=== PATIENT | female | born 1945 | race Caucasian/White ===

== ENCOUNTER 2016-06-30 16:48 | Emergency (ER) | payer OTHER ==
[~2016-06-30] VITALS: Ht 167.6 cm; Wt 75.0 kg
[~2016-06-30 16:48] MED LIST: ACET-703 PO; ASPI1TAB69 PO; ASTA1CAP2 PO; BENA25TA3 PO; FISHCAP4 PO; FLUT50SP EACH NARE; MAGN311C3 CHEW; MECL-62 PO; MULTTAB67 PO; TURM500C PO
[2016-06-30 16:50] VITALS: BP 168/78; PULSE 86; RESP 16; TEMP 97.9; O2SAT 97
[2016-06-30 17:16] VITALS: BP 181/80; PULSE 72; RESP 18; O2SAT 96
--- NOTE | 2016-06-30 17:53 | PD ---
HPI Chief Complaint: Substance Abuse Counselor Problem/Complaint Time Seen by Provider: 17:09 Travel History International Travel<30 days: No Contact w/Intl Traveler<30days: No Traveled to known affect area: No History of Present Illness HPI 70-year-old postmenopausal female here with complaint of bleeding, possibly vaginal. Patient states that she has some scant bleeding when she wipes on the toilet paper and on her kristine pad. Patient has had some burning with urination approximately one week ago but that has since resolved and she has not noticed any hematuria. She has not noticed any blood intermixed with the stool. Concern the bleeding may be coming from the vagina. Patient is again postmenopausal, but has not had a hysterectomy or oophorectomy. Denies any history of abnormal Pap smears in the past. Previous PERSONALIZED LIVING MANAGER NURSE was Dr. Hayward. [facility] Past Medical History Asthma: No Blood Disorders: No Anxiety: No Depression: Yes Heart Rhythm Problems: No Cancer: Yes (LEFT BREAST CANCER, CANCER OF URETER) Cardiovascular Problems: No High Cholesterol: Yes Chemotherapy: Yes (2000) Chest Pain: No Congestive Heart Failure: No COPD: No Cerebrovascular Accident: Yes (TIA 2013) Diabetes: Yes Patient Takes Glucophage: No Diminished Hearing: No Endocrine: Yes Gastrointestinal Disorders: Yes (GASTRIC ULCER, IRRITABLE BOWEL) Genitourinary: Yes (HEMATURIA) Hepatitis: No Hypertension: Yes Immune Disorder: No Musculoskeletal: No Neurologic: Yes (POSSIBLE TIA) Psychiatric: Yes (HX OF DEPRESSION) Reproductive: No Respiratory: No Immunizations Current: Yes Radiation Therapy: No Sleep Apnea: Yes Thyroid Disease: No Ulcer: Yes Menopausal: Yes : 1 Para: 1 Tubal Ligation: Yes Past Surgical History Abdominal Surgery: No AICD: No Body Medical Devices: NONE Cardiac Surgery: No Ear Surgery: No Endocrine Surgery: No Eye Surgery: No Genitourinary Surgery: Yes (CYSTOSCOPY, ) Gynecologic Surgery: Yes (TL) Joint Replacement: No Pacemaker: No Thoracic Surgery: Yes (RIGHT MASTECTOMY) Other Surgery: Yes (Right Mastectomy, right kidney removed july 2015 Dr. Lopez ) Social History Alcohol Use: No Tobacco Use: No (never) Substance Use: No Allergies-Medications (Allergen,Severity, Reaction): Coded Allergies: Penicillin (Unverified Allergy, Unknown, Swelling, 02/14/16) Reported Meds & Prescriptions Reported Meds & Active Scripts Active Reported Turmeric (Turmeric (Curcuma Longa)) 500 Mg Cap 500 Mg PO DAILY Tylenol Extra Strength (Acetaminophen) 500 Mg Tab 500 Mg PO DIRECTED PRN Fish Oil + D3 (Fish Oil-Cholecalciferol) 1,200-1,000 Mg-Unit Cap 1,400 Mg PO DAILY Aspirin 81 Mg Tabdr 81 Mg PO DAILY Singh Milk of Magnesia (Magnesium Hydroxide) 311 Mg Chew 2 Tab CHEW DAILY PRN Multiple Vitamin 1 Tab 1 Tab PO DAILY Benadryl Allergy (Diphenhydramine HCl) 25 Mg Tab 25 Mg PO DIRECTED PRN Meclizine (Meclizine HCl) 25 Mg Tab 25 Mg PO DIRECTED PRN Fluticasone Nasal [place] 50 Mcg/Act Naspr 50 Mcg EACH NARE DAILY 50 mcg/spray Review of Systems Except as stated in HPI: all other systems reviewed are Neg Physical Exam Narrative GENERAL: Pleasant elderly female in no acute distress SKIN: Focused skin assessment warm/dry. HEAD: Normocephalic. EYES: No scleral icterus. No injection or drainage. ENT: Mucous membranes pink and moist. NECK: Supple CARDIOVASCULAR: Regular rate and rhythm. RESPIRATORY: No accessory muscle use. GASTROINTESTINAL: Abdomen soft, non-tender, nondistended. GENITOURINARY: Normal external female genitalia. Speculum examination reveals no evidence of blood within the vaginal vault, cervical erythema, mass, etc. However when the speculum was removed there was a scant amount of blood on the tip of the inferior speculum blade. RECTAL: Digital rectal examination unremarkable, Hemoccult negative MUSCULOSKELETAL: Normal gait NEUROLOGICAL: Awake and alert. Normal speech. PSYCHIATRIC: Appropriate mood and affect; insight and judgment normal. Data Data Last Documented VS Vital Signs Date Time Temp Pulse Resp B/P Pulse Ox O2 Delivery O2 Flow Rate FiO2 06/30/16 17:16 72 18 181/80 96 Room Air 06/30/16 16:50 97.9 Orders Urinalysis - C+S If Indicated (06/30/16 17:30) Labs Laboratory Tests Test 06/30/16 17:35 Urine Color LIGHT-YELLOW Urine Turbidity CLEAR Urine pH 7.5 Urine Specific [place] 1.006 Urine Protein NEG mg/dL Urine Glucose (UA) NEG mg/dL Urine Ketones NEG mg/dL Urine Occult Blood MOD Urine Nitrite NEG Urine Bilirubin NEG Urine Urobilinogen LESS THAN 2.0 MG/DL Urine Leukocyte Esterase TRACE Urine RBC 5 /hpf Urine WBC 7 /hpf Urine Squamous Epithelial <1 /hpf Cells Urine Hyaline Casts 1 /lpf Microscopic Urinalysis Comment CULT NOT INDICATED MDM Medical Decision Making Medical Screen Exam Complete: Yes Emergency Medical Condition: Yes Medical Record Reviewed: Yes Differential Diagnosis 70-year-old female a scant amount of blood when she wipes on the toilet paper today. Based on her examination this is most likely vaginal bleeding that she does not have any evidence of hematuria on urine specimen and Hemoccult was negative. Given her postmenopausal vaginal bleeding concerning for endometrial , or other uterine cancer versus atrophic vaginitis and patient will be for referred to PERSONALIZED LIVING MANAGER NURSE as an outpatient or endometrial biopsy and likely pelvic ultrasound. Narrative Course Urinalysis obtained. Grossly, urine is clear without evidence of blood. Urinalysis showed trace leukocyte esterase with 7 white cells and 5 red cells. I would not treat this for UTI. Patient will be discharged home with PERSONALIZED LIVING MANAGER NURSE follow-up. [facility] Point of Care Internal Pos. & Neg. Controls: Passed Fecal Specimen Occult Blood: Negative Diagnosis Primary Impression: Postmenopausal vaginal bleeding Referrals: Alise Hayward MD call for appointment Additional Instructions: Follow-up with PERSONALIZED LIVING MANAGER NURSE as instructed. Med/Other Pt SpecificInfo: No Change to Meds Disposition: 01 DISCHARGE HOME Condition: Stable Mary Mcleod MD Jun 30, 2016 17:53
[2016-06-30 17:57] LABS: BLOOD, URINE MOD (NEG); COMMENT (UR) CULT NOT INDICATED; CULTURE IF INDICATED CULT NOT INDICATED; GLUCOSE,URINE NEG (NEG); HYALINE CAST, URINE 1 /lpf (RARE); KETONE, URINE NEG (NEG); NITRITE,URINE NEG (NEG); PH, URINE 7.5 (5.0-8.5); SQUAMOUS EPITHELIAL CELL URINE <1 /hpf (0-5); URINE COLOR LIGHT-YELLOW (YELLW/STRAW)
== END 2016-06-30 18:49 | disposition home or self-care (01) ==
LOC: NEPE 16:48
DX: N95.0 Postmenopausal bleeding (principal); E78.00 Pure hypercholesterolemia, unspecified; E11.9 Type 2 diabetes mellitus without complications; I10 Essential (primary) hypertension; Z86.73 Personal history of transient ischemic attack (TIA), and cerebral infarction without residual deficits; Z79.4 Long term (current) use of insulin
CPT/HCPCS: 81001; 99284

== ENCOUNTER 2016-10-04 20:56 | Emergency (ER) | payer OTHER ==
[~2016-10-04] VITALS: Ht 170.2 cm; Wt 79.5 kg
[~2016-10-04 20:56] MED LIST changes: -ASTA1CAP2 PO
[2016-10-04 20:58] VITALS: BP 125/74; PULSE 84; RESP 16; TEMP 99.2; O2SAT 98
--- NOTE | 2016-10-04 21:36 | PD ---
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 She states that symptoms have been intermittent. Complains of pain in the lower abdomen, worsened by sitting. She states that she feels as if "there is a blockage." Endorses feeling of urgency without ability to void. She is able to provide 30-40 mL urine sample. Denies fevers, chills, N/V, changes in bowel habits, back pain. She states that she was treated for a UTI with Levaquin just after September 17. Followed by Dr. Lopez , urology and Dr. Moncada, PCP. REPLACED BY [facility] Past Medical History Asthma: No Blood Disorders: No Anxiety: No Depression: Yes Heart Rhythm Problems: No Cancer: Yes (LEFT BREAST CANCER, CANCER OF URETER) Cardiovascular Problems: No High Cholesterol: Yes Chemotherapy: Yes (2000) Chest Pain: No Congestive Heart Failure: No COPD: No Cerebrovascular Accident: Yes (TIA 2013) Diabetes: Yes (PRE) Diminished Hearing: No Endocrine: Yes Gastrointestinal Disorders: Yes (GASTRIC ULCER, IRRITABLE BOWEL) Genitourinary: Yes (HEMATURIA) Hepatitis: No Hypertension: Yes Immune Disorder: No Musculoskeletal: No Neurologic: Yes (POSSIBLE TIA) Psychiatric: Yes (HX OF DEPRESSION) Reproductive: No Respiratory: No Immunizations Current: Yes Radiation Therapy: No Sleep Apnea: Yes Thyroid Disease: No Ulcer: Yes Menopausal: Yes : 1 Para: 1 Tubal Ligation: Yes Past Surgical History Abdominal Surgery: No AICD: No Body Medical Devices: NONE Cardiac Surgery: No Ear Surgery: No Endocrine Surgery: No Eye Surgery: No Genitourinary Surgery: Yes (CYSTOSCOPY, ) Gynecologic Surgery: Yes (TL) Joint Replacement: No Pacemaker: No Thoracic Surgery: Yes (RIGHT MASTECTOMY) Other Surgery: Yes (Right Mastectomy, right kidney removed july 2015 Dr. Lopez ) Social History Alcohol Use: No Tobacco Use: No (never) Substance Use: No Allergies-Medications (Allergen,Severity, Reaction): Coded Allergies: Penicillin (Unverified Allergy, Unknown, Swelling, 10/04/16) Reported Meds & Prescriptions Reported Meds & Active Scripts Active Reported Levothyroxine (Levothyroxine Sodium) 25 Mcg Tab 25 Mcg PO DAILY Aspirin 81 (Aspirin) 81 Mg Tabdr 81 Mg PO DAILY Turmeric (Turmeric (Curcuma Longa)) 500 Mg Cap 500 Mg PO DAILY Fish Oil + D3 (Fish Oil-Cholecalciferol) 1,200-1,000 Mg-Unit Cap 1,400 Mg PO DAILY Singh Milk of Magnesia (Magnesium Hydroxide) 311 Mg Chew 2 Tab CHEW DAILY PRN Multiple Vitamin 1 Tab 1 Tab PO DAILY Meclizine (Meclizine HCl) 25 Mg Tab 25 Mg PO DIRECTED PRN Fluticasone Nasal [place] 50 Mcg/Act Naspr 50 Mcg EACH NARE DAILY 50 mcg/spray Review of Systems Except as stated in HPI: all other systems reviewed are Neg Physical Exam Narrative GENERAL: Well-nourished, well-developed nontoxic appearing white female in NAD. SKIN: Focused skin assessment warm/dry. Well-healed laparoscopy port scars on the abdomen without signs of infection. HEAD: Normocephalic. EYES: No scleral icterus. No injection or drainage. NECK: Supple, trachea midline. No JVD or lymphadenopathy. CARDIOVASCULAR: Regular rate and rhythm without murmurs, gallops, or rubs. RESPIRATORY: Breath sounds clear and equal bilaterally. No accessory muscle use. GASTROINTESTINAL: Abdomen soft, non-tender, nondistended. No suprapubic tenderness. Active bowel sounds. MUSCULOSKELETAL: No cyanosis, or edema. BACK: Nontender without obvious deformity. No CVA tenderness. Data Data Last Documented VS Vital Signs Date Time Temp Pulse Resp B/P Pulse Ox O2 Delivery O2 Flow Rate FiO2 10/04/16 20:58 99.2 84 16 125/74 98 Orders Urinalysis - C+S If Indicated (10/04/16 21:41) Complete Blood Count With Diff (10/04/16 22:05) Comprehensive Metabolic Panel (10/04/16 22:05) Iv Access Insert/Monitor (10/04/16 22:05) Bladder Scan PRN (10/04/16 22:05) Urinary Catheter Insert/Apply (10/04/16 23:12) Labs Laboratory Tests Test 10/04/16 10/04/16 21:30 22:25 Urine Color LIGHT-YELLOW Urine Turbidity CLEAR Urine pH 7.0 Urine Specific [place] 1.007 Urine Protein NEG mg/dL Urine Glucose (UA) NEG mg/dL Urine Ketones NEG mg/dL Urine Occult Blood NEG Urine Nitrite NEG Urine Bilirubin NEG Urine Urobilinogen LESS THAN 2.0 MG/DL Urine Leukocyte Esterase SMALL Urine RBC 1 /hpf Urine WBC 4 /hpf Urine Squamous Epithelial <1 /hpf Cells Microscopic Urinalysis Comment CULT NOT INDICATED White Blood Count 8.0 TH/MM3 Red Blood Count 4.63 MIL/MM3 Hemoglobin 13.6 GM/DL Hematocrit 40.0 % Mean Corpuscular Volume 86.4 FL Mean Corpuscular Hemoglobin 29.4 PG Mean Corpuscular Hemoglobin 34.1 % Concent Red Cell Distribution Width 13.5 % Platelet Count 214 TH/MM3 Mean Platelet Volume 7.0 FL Neutrophils (%) (Auto) 68.9 % Lymphocytes (%) (Auto) 21.0 % Monocytes (%) (Auto) 7.4 % Eosinophils (%) (Auto) 2.3 % Basophils (%) (Auto) 0.4 % Neutrophils # (Auto) 5.5 TH/MM3 Lymphocytes # (Auto) 1.7 TH/MM3 Monocytes # (Auto) 0.6 TH/MM3 Eosinophils # (Auto) 0.2 TH/MM3 Basophils # (Auto) 0.0 TH/MM3 CBC Comment DIFF FINAL Differential Comment Sodium Level 138 MEQ/L Potassium Level 3.7 MEQ/L Chloride Level 102 MEQ/L Carbon Dioxide Level 27.0 MEQ/L Anion Gap 9 MEQ/L Blood Urea Nitrogen 26 MG/DL Creatinine 1.37 MG/DL Estimat Glomerular Filtration 38 ML/MIN Rate Random Glucose 107 MG/DL Calcium Level 9.0 MG/DL Total Bilirubin 0.4 MG/DL Aspartate Amino Transf 16 U/L (AST/SGOT) Alanine Aminotransferase 19 U/L (ALT/SGPT) Alkaline Phosphatase 77 U/L Total Protein 7.2 GM/DL Albumin 3.4 GM/DL [facility] Medical Decision Making Medical Screen Exam Complete: Yes Emergency Medical Condition: Yes Differential Diagnosis UTI versus obstructive uropathy versus bladder spasm versus other Narrative Course 70 YO F with PMH of right breast cancer and 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 Complains of pain in the groin, worsened by sitting. She states that she feels as if "there is a blockage." Endorses urgency without ability to void. Denies fevers, chills, N/V , changes in bowel habits, back pain. Treated for a UTI with Levaquin ~ September 17. Followed by Dr. Lopez, urology and Dr. Moncada, PCP. Vitals reviewed. Patient is non toxic appearing on physical exam. No tenderness to palpation of the abdomen, suprapubic region, groin. The patient was able to provide a small urine sample. We'll check basic labs and do a bladder scan. Review of MRI at [place] 09/12: 14mm right adrenal gland mass suspicious for metastatic disease. New since January 2016. Patient is to undergo biopsy at a later date. Disposition per Dr. Herrera. Margy Damon Oct 04, 2016 21:36
[2016-10-04] MEDS ORDERED: ASPI-110 PO (21:53)
[2016-10-04] MEDS ORDERED: TURM500C3 PO (21:53)
[2016-10-04] MEDS ORDERED: LEVO25TA4 PO (21:53)
[2016-10-04 22:38] LABS: AUTOMATED NEUTROPHIL # 5.5 TH/MM3 (1.8-7.7); BASOPHIL % 0.4 % (0.0-2.0); EOSINOPHIL # 0.2 TH/MM3 (0-0.4); EOSINOPHIL % 2.3 % (0.0-4.0); HEMO FLAGS DIFF FINAL; LYMPHOCYTE # 1.7 TH/MM3 (1.0-4.8); MEAN CELL VOLUME 86.4 FL (80.0-100.0); MEAN CORPUSCULAR HEMOGLOBIN 29.4 PG (27.0-34.0); MEAN CORPUSCULAR HGB CONC 34.1 % (32.0-36.0); MONO % 7.4 % (0.0-8.0); NEUT % 68.9 % (16.0-70.0); PLATELET COUNT 214 TH/MM3 (150-450); RED BLOOD COUNT 4.63 MIL/MM3 (4.00-5.30); RED CELL DISTRIBUTION WIDTH 13.5 % (11.6-17.2)
[2016-10-04 23:04] LABS: ANION GAP 9 MEQ/L (5-15); AST (GOT) 16 U/L (15-37); BLOOD UREA NITROGEN 26 MG/DL (7-18); CHLORIDE 102 MEQ/L (98-107); GLOMERULAR FILTRATION RATE 38 ML/MIN (>89); POTASSIUM 3.7 MEQ/L (3.5-5.1); SODIUM (NA) 138 MEQ/L (136-145)
[2016-10-04 23:04] LABS: BLOOD, URINE NEG (NEG); COMMENT (UR) CULT NOT INDICATED; CULTURE IF INDICATED CULT NOT INDICATED; GLUCOSE,URINE NEG (NEG); KETONE, URINE NEG (NEG); NITRITE,URINE NEG (NEG); SQUAMOUS EPITHELIAL CELL URINE <1 /hpf (0-5); URINE COLOR LIGHT-YELLOW (YELLW/STRAW)
[2016-10-04 23:05] LABS: ALT (GPT) 19 U/L (10-53)
[2016-10-04 23:08] LABS: ALKALINE PHOSPHATASE 77 U/L (45-117); TOTAL BILIRUBIN ADULT 0.4 MG/DL (0.2-1.0)
--- NOTE | 2016-10-04 23:54 | PD ---
Data Data Last Documented VS Vital Signs Date Time Temp Pulse Resp B/P Pulse Ox O2 Delivery O2 Flow Rate FiO2 10/04/16 20:58 99.2 84 16 125/74 98 Orders Urinalysis - C+S If Indicated (10/04/16 21:41) Complete Blood Count With Diff (10/04/16 22:05) Comprehensive Metabolic Panel (10/04/16 22:05) Iv Access Insert/Monitor (10/04/16 22:05) Bladder Scan PRN (10/04/16 22:05) Urinary Catheter Insert/Apply (10/04/16 23:12) Labs Laboratory Tests Test 10/04/16 10/04/16 21:30 22:25 Urine Color LIGHT-YELLOW Urine Turbidity CLEAR Urine pH 7.0 Urine Specific [place] 1.007 Urine Protein NEG mg/dL Urine Glucose (UA) NEG mg/dL Urine Ketones NEG mg/dL Urine Occult Blood NEG Urine Nitrite NEG Urine Bilirubin NEG Urine Urobilinogen LESS THAN 2.0 MG/DL Urine Leukocyte Esterase SMALL Urine RBC 1 /hpf Urine WBC 4 /hpf Urine Squamous Epithelial <1 /hpf Cells Microscopic Urinalysis Comment CULT NOT INDICATED White Blood Count 8.0 TH/MM3 Red Blood Count 4.63 MIL/MM3 Hemoglobin 13.6 GM/DL Hematocrit 40.0 % Mean Corpuscular Volume 86.4 FL Mean Corpuscular Hemoglobin 29.4 PG Mean Corpuscular Hemoglobin 34.1 % Concent Red Cell Distribution Width 13.5 % Platelet Count 214 TH/MM3 Mean Platelet Volume 7.0 FL Neutrophils (%) (Auto) 68.9 % Lymphocytes (%) (Auto) 21.0 % Monocytes (%) (Auto) 7.4 % Eosinophils (%) (Auto) 2.3 % Basophils (%) (Auto) 0.4 % Neutrophils # (Auto) 5.5 TH/MM3 Lymphocytes # (Auto) 1.7 TH/MM3 Monocytes # (Auto) 0.6 TH/MM3 Eosinophils # (Auto) 0.2 TH/MM3 Basophils # (Auto) 0.0 TH/MM3 CBC Comment DIFF FINAL Differential Comment Sodium Level 138 MEQ/L Potassium Level 3.7 MEQ/L Chloride Level 102 MEQ/L Carbon Dioxide Level 27.0 MEQ/L Anion Gap 9 MEQ/L Blood Urea Nitrogen 26 MG/DL Creatinine 1.37 MG/DL Estimat Glomerular Filtration 38 ML/MIN Rate Random Glucose 107 MG/DL Calcium Level 9.0 MG/DL Total Bilirubin 0.4 MG/DL Aspartate Amino Transf 16 U/L (AST/SGOT) Alanine Aminotransferase 19 U/L (ALT/SGPT) Alkaline Phosphatase 77 U/L Total Protein 7.2 GM/DL Albumin 3.4 GM/DL [facility] Medical Record Reviewed: Yes Supervised Visit with AGUILAR: Yes Narrative Course CBC & BMP Diagram 10/04/16 22:25 LFTs normal UA: no UTI 8F herrera placed The patient may have ureteral cancer. Direct visualization may be of benefit for this patient. We placed a 8 [place] Herrera catheter to leg bag. The patient expressed about 800 cc of urine. She'll follow-up with Dr. Lopez on Friday or Friday. Diagnosis Primary Impression: Urinary (tract) obstruction Referrals: Alfredo Lopez MD 2 days Additional Instruction: You have a choice when it comes to health care, and we are glad that you chose [facility]. Hopefully, we have met your expectations on today's visit. You are welcome to return to [facility] at any time, as we are committed to meeting the health care needs of our community. Med/Other Pt SpecificInfo: No Change to Meds Disposition: 01 DISCHARGE HOME Condition: Stable Steven Herrera MD Oct 04, 2016 23:54
== END 2016-10-05 01:06 | disposition home or self-care (01) ==
LOC: NEPE 20:56
DX: N13.9 Obstructive and reflux uropathy, unspecified (principal); Z88.0 Allergy status to penicillin; E11.9 Type 2 diabetes mellitus without complications; E78.00 Pure hypercholesterolemia, unspecified; I10 Essential (primary) hypertension; Z79.82 Long term (current) use of aspirin; Z85.3 Personal history of malignant neoplasm of breast; Z86.73 Personal history of transient ischemic attack (TIA), and cerebral infarction without residual deficits; Z87.19 Personal history of other diseases of the digestive system
CPT/HCPCS: 51702; 51798; 80053; 81001; 85025

== ENCOUNTER 2017-07-11 22:16 | Inpatient (IN) | payer OTHER, MEDICARE ==
[~2017-07-11] VITALS: Ht 175.3 cm; Wt 74.6 kg
[~2017-07-11 22:16] MED LIST changes: -ACET-703 PO; -ASPI1TAB69 PO; -BENA25TA3 PO; +METO25TA3 PO; +MIRA25TA PO; +OXYBXL5 PO; -TURM500C PO; +TURM500C3 PO; +ZOFR4TAB PO; +[UNRECOGNIZED DRUG - CODE] IV; +compazine PO
[2017-07-11 22:26] VITALS: PULSE 109; TEMP 99.7
[2017-07-11] MEDS ORDERED: ACETAMINOPHEN 500 MG CPLT PO ONE (23:00)
[2017-07-11] MEDS ORDERED: SODIUM CHLORID 0.9% 500 ML INJ 500 ML IV ONE (23:00)
[2017-07-11 23:32] LABS: AUTOMATED NEUTROPHIL # 6.6 TH/MM3 (1.8-7.7); BASOPHIL % 0.3 % (0.0-2.0); EOSINOPHIL % 0.7 % (0.0-4.0); HEMATOCRIT 27.1 % (35.0-46.0); HEMOGLOBIN 9.3 GM/DL (11.6-15.3); LYMPH % 8.4 % (9.0-44.0); LYMPHOCYTE # 0.6 TH/MM3 (1.0-4.8); MEAN CELL VOLUME 84.8 FL (80.0-100.0); MEAN CORPUSCULAR HGB CONC 34.2 % (32.0-36.0); MEAN PLATELET VOLUME 6.3 FL (7.0-11.0); MONO % 0.8 % (0.0-8.0); MONOCYTE # 0.1 TH/MM3 (0-0.9); NEUT % 89.8 % (16.0-70.0); PLATELET COUNT 246 TH/MM3 (150-450); RED BLOOD COUNT 3.19 MIL/MM3 (4.00-5.30); WHITE BLOOD COUNT 7.3 TH/MM3 (4.0-11.0)
[2017-07-11 23:34] LABS: ALBUMIN 2.5 GM/DL (3.4-5.0); ALT (GPT) 20 U/L (10-53); AST (GOT) 21 U/L (15-37); BICARBONATE 24.6 MEQ/L (21.0-32.0); BLOOD UREA NITROGEN 17 MG/DL (7-18); CALCIUM 8.5 MG/DL (8.5-10.1); CHLORIDE 99 MEQ/L (98-107); CREATININE 1.05 MG/DL (0.50-1.00); GLOMERULAR FILTRATION RATE 52 ML/MIN (>89); GLUCOSE,RANDOM 116 MG/DL (74-106); SODIUM (NA) 134 MEQ/L (136-145)
[2017-07-11 23:38] LABS: ALKALINE PHOSPHATASE 114 U/L (45-117); TOTAL BILIRUBIN ADULT 0.8 MG/DL (0.2-1.0); TOTAL PROTEIN 6.7 GM/DL (6.4-8.2); TROPONIN I LESS THAN 0.02 NG/ML (0.02-0.05)
[2017-07-12] VITALS (14 sets, daily range): BP systolic 109–139; BP diastolic 53–75; PULSE 75–101; RESP 16–18; TEMP 97.6–101.4; O2SAT 94–100
[2017-07-12 00:19] LABS: BACTERIA, URINE OCC /hpf; BILIRUBIN, URINE NEG (NEG); BLOOD, URINE NEG (NEG); GLUCOSE,URINE NEG (NEG); KETONE, URINE TRACE mg/dL (NEG); MUCUS URINE FEW /lpf (OCC); NITRITE,URINE NEG (NEG); PH, URINE 5.5 (5.0-8.5); SQUAMOUS EPITHELIAL CELL URINE <1 /hpf (0-5); URINE COLOR LIGHT-YELLOW (YELLW/STRAW); URINE LEUKOCYTE ESTERASE MOD (NEG)
[2017-07-12] MEDS ORDERED: CEFEPIME INJ 2,000 MG in SODIUM CHLORIDE 0.9% INJ 100 ML IV ONE (00:45)
--- NOTE | 2017-07-12 01:43 | RADRPT ---
EXAM DATE/TIME: 07/12/2017 01:19 [place] COMPARISON: CHEST SINGLE AP, July 26, 2015, 0:41. CHEST PA & LAT, February 25, 2015, 21:51. INDICATIONS : Fever, weakness for 24 hours MEDICAL HISTORY : Metastatic disease. Carcinoma, breast. ulcer, cva SURGICAL HISTORY : Tubal ligation. Mastectomy, right. ENCOUNTER: Initial ACUITY: 1 day PAIN SCORE: 0/10 LOCATION: Bilateral chest FINDINGS: [id number] catheter tip in the right atrium. The lungs are symmetrically aerated and clear. Both hemidiaphragms are well delineated. No evidence of pneumothorax. The heart is normal size. Multip le healed fractures of the posterior right 6th through 9th ribs. CONCLUSION: The lungs are clear. Eleazar Mora MD on July 12, 2017 at 1:40 Board Certified Radiologist. This report was verified electronically.
[2017-07-12] MEDS ORDERED: VANCOMYCIN INJ 1,000 MG in SODIUM CHLOR 0.9% 250 ML INJ 250 ML IV ONE (02:15)
--- NOTE | 2017-07-12 02:21 | PD ---
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 She just finished amino therapy recently and was unsuccessful so she was switched back to the chemotherapy. Today she had a PET scan. She said she got home and she did not feel well she laid in bed and when she stood up to go to the bathroom she felt shaking chills her took her temp and it was 101. They called [facility] told him to go to the ER they were getting in the car to go up to [facility] when patient was so tired and weak that she almost syncopized comes to the ER by ambulance she is diaphoretic and reports a fever of 101 orally she here she is 99.7 patient is awake alert reporting his general chills and feeling weak. All of it started after she had a PET scan that with the IV contrast PFSH Past Medical History Asthma: No Blood Disorders: No Anxiety: No Depression: Yes Heart Rhythm Problems: No Cancer: Yes (LEFT BREAST CANCER, CANCER OF URETER) Cardiovascular Problems: No High Cholesterol: Yes Chemotherapy: Yes (2000) Chest Pain: No Congestive Heart Failure: No COPD: No Cerebrovascular Accident: Yes (TIA 2013) Diabetes: Yes Patient Takes Glucophage: No Diminished Hearing: No Endocrine: Yes Gastrointestinal Disorders: Yes (GASTRIC ULCER, IRRITABLE BOWEL) Genitourinary: Yes (HEMATURIA) Hepatitis: No Hypertension: Yes Immune Disorder: No Musculoskeletal: No Neurologic: Yes (POSSIBLE TIA) Psychiatric: Yes (HX OF DEPRESSION) Reproductive: No Respiratory: No Immunizations Current: Yes Radiation Therapy: No Sleep Apnea: Yes Thyroid Disease: No Ulcer: Yes ?: Not Menopausal: Yes : 1 Para: 1 Tubal Ligation: Yes Past Surgical History Abdominal Surgery: No AICD: No Body Medical Devices: NONE Cardiac Surgery: No Ear Surgery: No Endocrine Surgery: No Eye Surgery: No Genitourinary Surgery: Yes (CYSTOSCOPY, ) Gynecologic Surgery: Yes (TL) Joint Replacement: No Pacemaker: No Thoracic Surgery: Yes (RIGHT MASTECTOMY) Other Surgery: Yes (Right Mastectomy, right kidney removed july 2015 Dr. Lopez ) Social History Alcohol Use: No Tobacco Use: No (never) Substance Use: No Allergies-Medications (Allergen,Severity, Reaction): Coded Allergies: penicillin G (Verified Allergy, Unknown, Swelling, 03/24/17) Reported Meds & Prescriptions Reported Meds & Active Scripts Active Ditropan XL 24 HR (Oxybutynin Chloride) 5 Mg Tab 5 Mg PO DAILY Reported Tecentriq (Atezolizumab) 1,200 Mg/20 Ml (60 Mg/Ml) Vial 1,200 Ml IV EVERY 3 WEEKS [compazine] Unknown Dose PO DAILY Zofran (Ondansetron HCl) 4 Mg Tab 4 Mg PO Q12HR PRN Turmeric (Turmeric (Curcuma Longa)) 500 Mg Cap 500 Mg PO DAILY Fish Oil + D3 (Fish Oil-Cholecalciferol) 1,200-1,000 Mg-Unit Cap 1,400 Mg PO DAILY Singh Milk of Magnesia (Magnesium Hydroxide) 311 Mg Chew 2 Tab CHEW DAILY PRN Multiple Vitamin 1 Tab 1 Tab PO DAILY Meclizine (Meclizine HCl) 25 Mg Tab 25 Mg PO DIRECTED PRN Fluticasone Nasal [place] 50 Mcg/Act Naspr 50 Mcg EACH NARE DAILY 50 mcg/spray Review of Systems Except as stated in HPI: all other systems reviewed are Neg General / Constitutional: Positive: Fever, Chills Musculoskeletal: Positive: Weakness Physical Exam Narrative GENERAL: pale diaphoretic SKIN: Warm and dry. diaphoretic HEAD: Atraumatic. Normocephalic. EYES: Pupils equal and round. No scleral icterus. No injection or drainage. ENT: No nasal bleeding or discharge. Mucous membranes pink and moist. NECK: Trachea midline. No JVD. CARDIOVASCULAR: Regular rate and rhythm. RESPIRATORY: No accessory muscle use. Clear to auscultation. Breath sounds equal bilaterally. GASTROINTESTINAL: Abdomen soft, non-tender, nondistended. Hepatic and splenic margins not palpable. MUSCULOSKELETAL: Extremities without clubbing, cyanosis, or edema. No obvious deformities. NEUROLOGICAL: Awake and alert. No obvious cranial nerve deficits. Motor grossly within normal limits. Five out of 5 muscle strength in the arms and legs. Normal speech. PSYCHIATRIC: Appropriate mood and affect; insight and judgment normal. Data Data Last Documented VS Vital Signs Date Time Temp Pulse Resp B/P (MAP) Pulse Ox O2 Delivery O2 Flow Rate FiO2 07/12/17 00:58 98.1 82 17 109/53 (71) 96 Room Air Orders Orders Complete Blood Count With Diff (07/11/17 22:50) Comprehensive Metabolic Panel (07/11/17 22:50) Ckmb (Isoenzyme) Profile (07/11/17 22:50) Troponin I (07/11/17 22:50) Lipase (07/11/17 22:50) Blood Culture (07/11/17 22:50) Sodium Chlorid 0.9% 500 Ml Inj (Ns 500 M (07/11/17 23:00) Acetaminophen (Tylenol) (07/11/17 23:00) Lactic Acid (07/11/17 23:04) Urinalysis - C+S If Indicated (07/11/17 23:24) Cefepime Inj (Maxipime Inj) (07/12/17 00:45) Chest, Pa & Lat (07/12/17 ) Vancomycin Inj (Vancomycin Inj) (07/12/17 02:15) Aztreonam Inj (Azactam Inj) (07/12/17 09:00) Place In Observation (07/12/17 ) Vital Signs (Adult) Q4H (07/12/17 02:20) Activity Oob Ad Wendy (07/12/17 02:20) Sonar Subsystem Equipment Operator / Telemetry .CONTINUOUS (07/12/17 02:20) Intake + Output IVON.QSHIFT (07/12/17 02:20) Sodium Chlor 0.9% 1000 Ml Inj (Ns 1000 M (07/12/17 02:20) Sodium Chloride 0.9% Flush (Ns Flush) (07/12/17 02:30) Sodium Chloride 0.9% Flush (Ns Flush) (07/12/17 09:00) Ondansetron Inj (Zofran Inj) (07/12/17 02:30) Comprehensive Metabolic Panel (07/13/17 06:00) Complete Blood Count With Diff (07/13/17 06:00) Scd Bilateral/Knee High IVON.BID (07/12/17 02:20) Roney Bilateral/Knee High IVON.QSHIFT (07/12/17 02:23) Acetaminophen (Tylenol) (07/12/17 02:30) Acetamin-Hydrocod 325-5 Mg (Jbphh 5-325 (07/12/17 02:30) Morphine Inj (Morphine Inj) (07/12/17 02:30) Docusate Sodium-Senna (Katheryn-Colace) (07/12/17 09:00) Magnesium Hydroxide Liq (Milk Of Magnesi (07/12/17 02:30) Sennosides (Senokot) (07/12/17 02:30) Bisacodyl Supp (Dulcolax Supp) (07/12/17 02:30) Lactulose Liq (Lactulose Liq) (07/12/17 02:30) Admit Order (Ed Use Only) (07/12/17 02:32) Labs Laboratory Tests Test 07/11/17 22:55 07/11/17 23:58 White Blood Count 7.3 TH/MM3 Red Blood Count 3.19 MIL/MM3 Hemoglobin 9.3 GM/DL Hematocrit 27.1 % Mean Corpuscular Volume 84.8 FL Mean Corpuscular Hemoglobin 29.0 PG Mean Corpuscular Hemoglobin Concent 34.2 % Red Cell Distribution Width 15.0 % Platelet Count 246 TH/MM3 Mean Platelet Volume 6.3 FL Neutrophils (%) (Auto) 89.8 % Lymphocytes (%) (Auto) 8.4 % Monocytes (%) (Auto) 0.8 % Eosinophils (%) (Auto) 0.7 % Basophils (%) (Auto) 0.3 % Neutrophils # (Auto) 6.6 TH/MM3 Lymphocytes # (Auto) 0.6 TH/MM3 Monocytes # (Auto) 0.1 TH/MM3 Eosinophils # (Auto) 0.0 TH/MM3 Basophils # (Auto) 0.0 TH/MM3 CBC Comment DIFF FINAL Differential Comment Blood Urea Nitrogen 17 MG/DL Creatinine 1.05 MG/DL Random Glucose 116 MG/DL Total Protein 6.7 GM/DL Albumin 2.5 GM/DL Calcium Level 8.5 MG/DL Alkaline Phosphatase 114 U/L Aspartate Amino Transf (AST/SGOT) 21 U/L Alanine Aminotransferase (ALT/SGPT) 20 U/L Total Bilirubin 0.8 MG/DL Sodium Level 134 MEQ/L Potassium Level 3.7 MEQ/L Chloride Level 99 MEQ/L Carbon Dioxide Level 24.6 MEQ/L Anion Gap 10 MEQ/L Estimat Glomerular Filtration Rate 52 ML/MIN Lactic Acid Level 0.7 mmol/L Total Creatine Kinase 29 U/L Troponin I LESS THAN 0.02 NG/ML Lipase 73 U/L Urine Color LIGHT-YELLOW Urine Turbidity CLEAR Urine pH 5.5 Urine Specific [place] 1.003 Urine Protein NEG mg/dL Urine Glucose (UA) NEG mg/dL Urine Ketones TRACE mg/dL Urine Occult Blood NEG Urine Nitrite NEG Urine Bilirubin NEG Urine Urobilinogen LESS THAN 2.0 MG/DL Urine Leukocyte Esterase MOD Urine RBC 3 /hpf Urine WBC 7 /hpf Urine Squamous Epithelial Cells <1 /hpf Urine Bacteria OCC /hpf Urine Mucus FEW /lpf Microscopic Urinalysis Comment CULT NOT INDICATED MDM Medical Decision Making Medical Screen Exam Complete: Yes Emergency Medical Condition: Yes Medical Record Reviewed: Yes Differential Diagnosis immunocompromised fever need for antibiotics , vs UTI or PNA or viral illness causing fever Narrative Course URine has 7 WBC abd mod leuko will treat with vanco cefepime and admit with oNCO CONSULT IN AM Diagnosis Primary Impression: Fever and neutropenia Additional Impression: Immunocompromised status associated with infection Admitting Information Admitting Physician Requests: Admit James Pichardo MD Jul 12, 2017 02:21
[2017-07-12] MEDS ORDERED: MORPHINE SULFATE 2 MG/ML SYRINGE IV PUSH PRN (02:30)
[2017-07-12] MEDS ORDERED: SENNOSIDES 8.6 MG TAB PO PRN (02:30)
[2017-07-12] MEDS ORDERED: BISACODYL 10 MG SUPP RECTAL PRN (02:30)
[2017-07-12] MEDS ORDERED: LACTULOSE SYRUP 20 GM/30 ML CUP PO PRN (02:30)
[2017-07-12] MEDS: SODIUM CHLOR 0.9% 1000 ML INJ 1,000 ML IV SCH ×3 (03:01→22:50)
--- NOTE | 2017-07-12 03:28 | HHI.HP ---
HPI Service [facility] Primary Care Physician Elizabeth Moncada D.O. Admission Diagnosis fever and on CHEMO immunosuppressed Diagnoses: (1) Fever Diagnosis: Principal (2) UTI (urinary tract infection) Diagnosis: Principal (3) Breast CA Diagnosis: Principal Travel History International Travel<30 Days: No Contact w/Intl Traveler <30 Da: No Traveled to Known Affected Are: No History of Present Illness This is a 71-year-old female with a PMH of HTN, Hyperlipidemia, Depression, IBS and Breast CA on Chemo who presented to the ER with complaints of generalized malaise and fever. Pt states she is currently on chemotherapy for Breast CA, following at [facility]. Had outpatient PET Scan today and felt weak/tired after imaging, then had febrile episode at home w/ Temp 101. States she was about to get into the car to go to [place] when she had sudden weakness w/ near syncope at which point she was brought here. Denies abdominal pain, nausea, vomiting or diarrhea. No sick contacts. On arrival, BP 109/53, HR 109, O2 sat 96% on RA, Temp 99.7. CBC unremarkable except for elevated neutrophil count. Creatinine 1.05, previously 1.30 on 01/02/2017. Troponin negative. Lactic Acid normal. UA with moderate LE, bacteriuria. CXR with no acute findings. S/ p Blood/Urine cultures, Vanc/Cefepime in ER. Review of Systems Except as stated in HPI: all other systems reviewed are Neg ROS: 14 point review of systems otherwise negative. Past Family Social History Past Medical History PMH: HTN, Hyperlipidemia, Depression, IBS and Breast CA on Chemo Past Surgical History PAST SURGICAL HISTORY: Cystoscopy, Tubal Ligation, Right Mastectomy, Right Nephrectomy Allergies: Coded Allergies: penicillin G (Verified Allergy, Unknown, Swelling, 03/24/17) Family History PAST FAMILY HISTORY: Reviewed. No h/o DM or CAD Social History PAST SOCIAL HISTORY: Negative for alcohol, tobacco or drugs per Physical Exam Vital Signs Vital Signs Date Time Temp Pulse Resp B/P (MAP) Pulse Ox O2 Delivery O2 Flow Rate FiO2 07/12/17 00:58 98.1 82 17 109/53 (71) 96 Room Air 07/11/17 22:26 99.7 109 Physical Exam PE: GENERAL: Pleasant elderly white female in no acute distress, appears weak/ tired. at bedside. HEENT: PERRLA, EOMI. No scleral icterus or conjunctival pallor. No lid lag or facial droop. CARDIOVASCULAR: Regular rate and rhythm. No obvious murmurs to auscultation. No chest tenderness to palpation. RESPIRATORY: No obvious rhonchi or wheezing. Clear to auscultation. Breath sounds equal bilaterally. GASTROINTESTINAL: Abdomen soft, non-tender, nondistended. BS normal. MUSCULOSKELETAL: Extremities without clubbing, cyanosis, or edema. No obvious deformities. NEUROLOGICAL: Awake, alert and oriented x4. No focal neurologic deficits. Moving both upper and lower extremities spontaneously. Laboratory Laboratory Tests Test 07/11/17 22:55 07/11/17 23:58 White Blood Count 7.3 Red Blood Count 3.19 Hemoglobin 9.3 Hematocrit 27.1 Mean Corpuscular Volume 84.8 Mean Corpuscular Hemoglobin 29.0 Mean Corpuscular Hemoglobin Concent 34.2 Red Cell Distribution Width 15.0 Platelet Count 246 Mean Platelet Volume 6.3 Neutrophils (%) (Auto) 89.8 Lymphocytes (%) (Auto) 8.4 Monocytes (%) (Auto) 0.8 Eosinophils (%) (Auto) 0.7 Basophils (%) (Auto) 0.3 Neutrophils # (Auto) 6.6 Lymphocytes # (Auto) 0.6 Monocytes # (Auto) 0.1 Eosinophils # (Auto) 0.0 Basophils # (Auto) 0.0 CBC Comment DIFF FINAL Differential Comment Blood Urea Nitrogen 17 Creatinine 1.05 Random Glucose 116 Total Protein 6.7 Albumin 2.5 Calcium Level 8.5 Alkaline Phosphatase 114 Aspartate Amino Transf (AST/SGOT) 21 Alanine Aminotransferase (ALT/SGPT) 20 Total Bilirubin 0.8 Sodium Level 134 Potassium Level 3.7 Chloride Level 99 Carbon Dioxide Level 24.6 Anion Gap 10 Estimat Glomerular Filtration Rate 52 Lactic Acid Level 0.7 Total Creatine Kinase 29 Troponin I LESS THAN 0.02 Lipase 73 Urine Color LIGHT-YELLOW Urine Turbidity CLEAR Urine pH 5.5 Urine Specific [place] 1.003 Urine Protein NEG Urine Glucose (UA) NEG Urine Ketones TRACE Urine Occult Blood NEG Urine Nitrite NEG Urine Bilirubin NEG Urine Urobilinogen LESS THAN 2.0 Urine Leukocyte Esterase MOD Urine RBC 3 Urine WBC 7 Urine Squamous Epithelial Cells <1 Urine Bacteria OCC Urine Mucus FEW Microscopic Urinalysis Comment CULT NOT INDICATED Date/Time Source Procedure Growth Status 07/11/17 22:55 Blood Peripheral Aerobic Blood Culture Pending Received 07/11/17 22:55 Blood Peripheral Anaerobic Blood Culture Pending Received Result Diagram: 07/11/17225407/11/175 Caprini VTE Risk Assessment Caprini VTE Risk Assessment: No/Low Risk (score <= 1) Caprini Risk Assessment Model Point Value = 1 Point Value = 2 Point Value = 3 Point Value = 5 Age 41-60 Minor surgery BMI > 25 kg/m2 Swollen legs Varicose veins or History of unexplained or recurrent spontaneous Oral contraceptives or hormone replacement Sepsis (< 1 month) Serious lung disease, including pneumonia (< 1 month) Abnormal pulmonary function Acute myocardial infarction Congestive heart failure (< 1 month) History of inflammatory bowel disease Medical patient at bed rest Age 61-74 Arthroscopic surgery Major open surgery (> 45 min) Laparoscopic surgery (> 45 min) Malignancy Confined to bed (> 72 hours) Immobilizing plaster cast Central venous access Age >= 75 History of VTE Family history of VTE Factor V Leiden Prothrombin [id number] Lupus anticoagulant Anticardiolipin antibodies Elevated serum homocysteine Heparin-induced thrombocytopenia Other congenital or acquired thrombophilia Stroke (< 1 month) Elective arthroplasty Hip, pelvis, or leg fracture Acute spinal cord injury (< 1 month) Prophylaxis Regimen Total Risk Factor Score Risk Level Prophylaxis Regimen 0-1 Low Early ambulation 2 Moderate Order ONE of the following: *Sequential Compression Device (SCD) *Heparin 5000 units SQ BID 3-4 Higher Order ONE of the following medications: *Heparin 5000 units SQ TID *Enoxaparin/Lovenox 40 mg SQ daily (WT < 150 kg, CrCl > 30 mL/min) *Enoxaparin/Lovenox 30 mg SQ daily (WT < 150 kg, CrCl > 10-29 mL/min) *Enoxaparin/Lovenox 30 mg SQ BID (WT < 150 kg, CrCl > 30 mL/min) AND/OR *Sequential Compression Device (SCD) 5 or more Highest Order ONE of the following medications: *Heparin 5000 units SQ TID (Preferred with Epidurals) *Enoxaparin/Lovenox 40 mg SQ daily (WT < 150 kg, CrCl > 30 mL/min) *Enoxaparin/Lovenox 30 mg SQ daily (WT < 150 kg, CrCl > 10-29 mL/min) *Enoxaparin/Lovenox 30 mg SQ BID (WT < 150 kg, CrCl > 30 mL/min) AND *Sequential Compression Device (SCD) Assessment and Plan Problem List: (1) Fever ICD Code: R50.9 - Fever, unspecified (2) UTI (urinary tract infection) ICD Code: N39.0 - Urinary tract infection, site not specified (3) Breast CA ICD Code: C50.919 - Malignant neoplasm of unspecified site of unspecified female breast Assessment and Plan A/P: 1. Fever: acute febrile episode w/ associated weakness/near syncope, + immunocompromised on chemotherapy, s/p Blood/Urine cultures, will follow up cultures. CXR w/ no acute findings, images reviewed by me. U/a w/ moderate LE/ bacteriuria possible source of fever. Continue w/ IV Abx. 2. UTI: U/a w/ UTI, in light of immunocompromised state and fever will continue w/ IV Abx, follow up urine cultures. IVF for hydration. 3. Breast CA: follows at [place], currently on chemotherapy, outpatient follow up at [place] as scheduled to resume treatment. 4. DVT Prophylaxis: SCD/Teds 5. Social work for d/c planning as needed. 6. Case discussed w/ ER physician at length, labs/records/imaging reviewed by me. Angela Alcala MD Jul 12, 2017 03:28
[2017-07-12] MEDS: SODIUM CHLORIDE 0.9% FLUSH 10 ML FLUSH IV FLUSH SCH ×2 (07:59→21:02)
[2017-07-12] MEDS: ONDANSETRON HCL 4 MG/2 ML VIAL IVP PRN ×2 (07:59→15:53)
[2017-07-12] MEDS: ACETAMINOPHEN/HYDROcodone 325 MG/5 MG TAB PO PRN ×2 (07:59→15:53)
[2017-07-12] MEDS: DOCUSATE SODIUM 50 MG/SENNA 8.6 MG TAB PO SCH ×2 (09:43→21:01)
[2017-07-12] MEDS: AZTREONAM INJ 2,000 MG in SODIUM CHLORIDE 0.9% INJ 100 ML IV SCH ×2 (09:43→17:43)
[2017-07-12] MEDS ORDERED: POLYETHYLENE GLYCOL 17 GM PKG PO ONE (12:30)
--- NOTE | 2017-07-12 12:39 | HHI.PR ---
Subjective Remarks Follow up on patient with fever, weakness, near syncope. Patient seen and examined. Patient states she is feeling a little better today. She reports frequent chills and sweats which has been ongoing since she started chemotherapy. She reports nausea without any vomiting. She was able to tolerate her breakfast. She has had a herrera for the past year which is followed by Dr. Lopez and she has an upcoming appointment in his office on Friday and will have her herrera changed at that appointment. Patient denies any chest pain or shortness of breath. Patient denies any diarrhea. She reports constipation. She was previously on chemotherapy treatment which was discontinued due to being unable to tolerate secondary to fevers. She was started on immunotherapy which was not very effective. She recently started on a different chemotherapy medication last Friday at 70% per her husbands report. Objective Vitals Vital Signs Date Time Temp Pulse Resp B/P (MAP) Pulse Ox O2 Delivery O2 Flow Rate FiO2 07/12/17 11:45 99.3 90 16 124/58 (80) 95 07/12/17 11:22 90 07/12/17 07:45 81 07/12/17 07:28 97.6 75 16 139/63 (88) 100 07/12/17 05:09 80 07/12/17 04:18 98.6 75 17 119/59 (79) 95 07/12/17 00:58 98.1 82 17 109/53 (71) 96 Room Air 07/11/17 22:26 99.7 109 I/O 07/11/17 07/11/17 07/11/17 07/12/17 07/12/17 07/12/17 07:00 15:00 23:00 07:00 15:00 23:00 Intake Total 100 ml Output Total 1575 ml Balance -1475 ml Intake IV Total 100 ml Output Urine Total 1575 ml Result Diagram: 07/11/17 2255 07/11/17 2255 Imaging Last Impressions Chest X-Ray 07/12/17 0000 Signed Impressions: Service Date/Time: Wednesday, July 12, 2017 01:19 - CONCLUSION: The lungs are clear. Eleazar Mora MD Objective Remarks GENERAL: WDWN pleasant elderly white female, in no acute distress. Awake and alert. at bedside. SKIN: Infuse a port right upper anterior chest with no e/o infection. +mass right posterior shoulder. HEENT: PERRLA, EOMI. No scleral icterus or conjunctival pallor. No lid lag or facial droop. No nasal drainage or purulence. MMM. CARDIOVASCULAR: Regular rate and rhythm. No obvious murmurs to auscultation. No chest tenderness to palpation. RESPIRATORY: No obvious rhonchi or wheezing. Clear to auscultation. Breath sounds equal bilaterally. GASTROINTESTINAL: Abdomen soft, non-tender, nondistended. BS normal. GENITOURINARY: Herrera catheter in place with clear yellow urine in the bag. MUSCULOSKELETAL: Extremities without clubbing, cyanosis, or edema. No obvious deformities. NEUROLOGICAL: Awake, alert and oriented x4. No focal neurologic deficits. Moving both upper and lower extremities spontaneously. Normal speech. PSYCHIATRIC: Depressed mood. Calm and pleasant. Medications and IVs Current Medications Medications (Trade) Dose Ordered Sig/Prabha Route Start Time Stop Time Status Last Admin Aztreonam 2000 mg/ Sodium Chloride 100 ml @ 200 mls/hr Q8H IV 07/12/17 09:00 07/12/17 09:43 Sodium Chloride 1,000 ml @ 100 mls/hr Q10H IV 07/12/17 02:20 07/12/17 03:01 (NS Flush) 2 ml UNSCH PRN IV FLUSH 07/12/17 02:30 (NS Flush) 2 ml BID IV FLUSH 07/12/17 09:00 07/12/17 07:59 (Zofran Inj) 4 mg Q6H PRN IVP 07/12/17 02:30 07/12/17 07:59 (Tylenol) 650 mg Q6H PRN PO 07/12/17 02:30 ([place] 5-325 Mg) 1 tab Q4H PRN PO 07/12/17 02:30 07/12/17 07:59 (Morphine Inj) 2 mg Q3H PRN IV PUSH 07/12/17 02:30 (Katheryn-Colace) 1 tab BID PO 07/12/17 09:00 07/12/17 09:43 (Milk Of Magnesia Liq) 30 ml Q12H PRN PO 07/12/17 02:30 (Senokot) 17.2 mg Q12H PRN PO 07/12/17 02:30 (Dulcolax Supp) 10 mg DAILY PRN RECTAL 07/12/17 02:30 (Lactulose Liq) 30 ml DAILY PRN PO 07/12/17 02:30 A/P Problem List: (1) Fever ICD Code: R50.9 - Fever, unspecified (2) UTI (urinary tract infection) ICD Code: N39.0 - Urinary tract infection, site not specified (3) Breast CA ICD Code: C50.919 - Malignant neoplasm of unspecified site of unspecified female breast Assessment and Plan 71-year-old female with a PMH of HTN, Hyperlipidemia, Depression, IBS and Breast CA on Chemo who presented to the ER with complaints of generalized malaise and fever. Fever: acute febrile episode w/ associated weakness/near syncope, + immunocompromised on chemotherapy CXR w/no acute findings Blood cultures with no growth x 1 day U/a w/ moderate LE/bacteriuria possible source of fever. -Continue to follow BCX -Continue to monitor fevers -obtain TSH level and B12 -IVF for hydration -check flu antigen and urinary antigen legionella and pneumococcal UTI vs pyuria: UA with mod leukocytes, 7 WBCs, occ bacteria. Patient has chronic indwelling herrera. Denies any c/o abdominal pain. -Continue on IV Aztreonam -obtain EKG to assess for possible QT prolongation in anticipation of downgrading IV abx treatment -obtain urine cx Right ureter CA, s/p open right nephroureterectomy with excision of bladder cuff : chronic indwelling herrera. Follows with Dr. Lopez. Has appt Friday to have herrera changed Breast CA s/p mastectomy: follows at [place], currently on chemotherapy, outpatient follow up at [place] as scheduled to resume treatment. -Consult oncology, appreciate assistance -pain management -PT/OT eval/tx -consider palliative care if patient here on Friday CKD Creatinine appears to near baseline -continue to monitor kidney function as indicated -avoid nephrotoxic agents Hx of DM: not on any diabetic meds -accucheks and ISS -obtain HgbA1c Constipation -Pericolace BID -Miralax daily -monitor for BM DVT Prophylaxis: Heparin sq Discharge Planning Patient not ready for discharge. Pending clinical improvement. Cheryl Avina Jul 12, 2017 12:39
[2017-07-12] MEDS ORDERED: DEXTROSE 50% IN WATER 50 ML VIAL(D50) IV PUSH PRN (12:45)
[2017-07-12] MEDS ORDERED: GLUCAGON 1 MG/ML VIAL OTHER PRN (12:45)
[2017-07-12] MEDS: SODIUM CHLORIDE 0.9% FLUSH 10 ML FLUSH IV FLUSH PRN (15:53)
[2017-07-12] MEDS: INSULIN ASPART SUPPLEMENTAL SCALE SQ SCH ×2 (17:12→21:01)
[2017-07-12] MEDS: HEPARIN SODIUM - SQ 10,000 UNITS/ML VIAL SQ SCH (21:01)
[2017-07-12] MEDS: ACETAMINOPHEN 325 MG TAB PO PRN (22:50)
[2017-07-13] VITALS (11 sets, daily range): BP systolic 112–132; BP diastolic 53–77; PULSE 78–102; RESP 16–18; TEMP 98.6–102.3; O2SAT 95–100
[2017-07-13] MEDS: AZTREONAM INJ 2,000 MG in SODIUM CHLORIDE 0.9% INJ 100 ML IV SCH ×3 (01:43→16:34)
[2017-07-13] MEDS: HEPARIN SODIUM - SQ 10,000 UNITS/ML VIAL SQ SCH (06:00)
[2017-07-13] MEDS: ACETAMINOPHEN/HYDROcodone 325 MG/5 MG TAB PO PRN ×2 (06:00→19:20)
[2017-07-13] MEDS: ONDANSETRON HCL 4 MG/2 ML VIAL IVP PRN ×2 (06:40→19:20)
[2017-07-13] MEDS: PETROLATUM 49%/ZINC OXIDE 15% 4 OUNCE TUBE TOPICAL SCH (08:05)
[2017-07-13] MEDS: MULTIVITAMIN TAB PO SCH (08:05)
[2017-07-13] MEDS: SODIUM CHLOR 0.9% 1000 ML INJ 1,000 ML IV SCH ×2 (08:05→20:51)
[2017-07-13] MEDS: FLUTICASONE PROPIONATE 50 MCG/ACT 16 GM NASAL SPRAY EACH NARE SCH (08:05)
[2017-07-13] MEDS: DOCUSATE SODIUM 50 MG/SENNA 8.6 MG TAB PO SCH ×2 (08:05→20:45)
[2017-07-13] MEDS: SODIUM CHLORIDE 0.9% FLUSH 10 ML FLUSH IV FLUSH SCH ×2 (08:05→20:46)
[2017-07-13 08:27] LABS: AUTOMATED NEUTROPHIL # 1.2 TH/MM3 (1.8-7.7); BASOPHIL % 0.3 % (0.0-2.0); EOSINOPHIL # 0.1 TH/MM3 (0-0.4); HEMATOCRIT 22.1 % (35.0-46.0); HEMOGLOBIN 7.7 GM/DL (11.6-15.3); LYMPH % 30.5 % (9.0-44.0); LYMPHOCYTE # 0.6 TH/MM3 (1.0-4.8); MEAN CELL VOLUME 85.1 FL (80.0-100.0); MEAN CORPUSCULAR HEMOGLOBIN 29.7 PG (27.0-34.0); MEAN CORPUSCULAR HGB CONC 34.9 % (32.0-36.0); MONO % 6.2 % (0.0-8.0); MONOCYTE # 0.1 TH/MM3 (0-0.9); PLATELET COUNT 139 TH/MM3 (150-450); RED CELL DISTRIBUTION WIDTH 14.5 % (11.6-17.2)
[2017-07-13] MEDS: INSULIN ASPART SUPPLEMENTAL SCALE SQ SCH ×4 (08:45→20:35)
[2017-07-13] MEDS ORDERED: CHOLECALCIFEROL PO SCH (09:00)
[2017-07-13] MEDS ORDERED: TURMERIC 500 MG PO SCH (09:00)
[2017-07-13] MEDS ORDERED: [UNRECOGNIZED DRUG - OTHER] PO SCH (09:00)
[2017-07-13] MEDS ORDERED: POLYETHYLENE GLYCOL 17 GM PKG PO SCH (09:00)
[2017-07-13] MEDS ORDERED: FISH OIL PO SCH (09:00)
[2017-07-13 09:03] LABS: ALBUMIN 1.9 GM/DL (3.4-5.0); ALKALINE PHOSPHATASE 90 U/L (45-117); ALT (GPT) 11 U/L (10-53); AST (GOT) 15 U/L (15-37); BLOOD UREA NITROGEN 11 MG/DL (7-18); CALCIUM 8.2 MG/DL (8.5-10.1); CHLORIDE 105 MEQ/L (98-107); CREATININE 0.74 MG/DL (0.50-1.00); GLOMERULAR FILTRATION RATE 77 ML/MIN (>89); GLUCOSE,RANDOM 106 MG/DL (74-106); SODIUM (NA) 136 MEQ/L (136-145); TOTAL BILIRUBIN ADULT 0.6 MG/DL (0.2-1.0); TOTAL PROTEIN 5.7 GM/DL (6.4-8.2)
[2017-07-13] MEDS ORDERED: Vancomycin Consult Pharmacy 1 EA OTHER SCH (09:30)
[2017-07-13] MEDS: VANCOMYCIN INJ 1,250 MG in SODIUM CHLOR 0.9% 250 ML INJ 250 ML IV SCH (11:22)
--- NOTE | 2017-07-13 12:10 | PD.ID.CON ---
History of Present Illness Service ID Consult Requested By Cheryl Lyons Reason for Consult neutropenia, fever Primary Care Physician Elizabeth Moncada D.O. Diagnoses: History of Present Illness 71 yo with metastatic R kdney/ureter transitional cell cancer sp nephrectomy/ R ureterctomy chronic herrera ( obstructive uropathy 2/2 metastatic masses restarted on cvhemo 1 week ago after failing immunomodulation tx by Friday she developpped fever up to 101.4, extreme fatigue to the point she could not get OOB and R side chest rash with ip[silateral PORT (placed in November) ANC 1200 UA abnormal, clx + for PSAE Review of Systems Constitutional: COMPLAINS OF: Fatigue, Fever Gastrointestinal: COMPLAINS OF: Nausea Genitourinary: COMPLAINS OF: Urinary incontinence Except as stated in HPI: all other systems reviewed are Neg Past Family Social History Allergies: Coded Allergies: penicillin G (Verified Allergy, Unknown, Swelling, 03/24/17) Past Medical History breast ca R sp R mastectomy R kidney transitional ca diet controlled DM Past Surgical History R nephrectomy R mastectomy PORT placement Active Ordered Medications Medications where reviewed in EMR Antibiotics Include: azctam vancomycin Family History reviewed non contributory to current ID problem Social History No Tobacco. No ETOH. No Illicit Drugs. Physical Exam Vital Signs Vital Signs Date Time Temp Pulse Resp B/P (MAP) Pulse Ox O2 Delivery O2 Flow Rate FiO2 07/13/17 11:36 99.1 97 18 131/59 (83) 100 07/13/17 11:24 92 07/13/17 07:32 92 07/13/17 07:11 99.9 97 18 112/53 (72) 95 07/13/17 04:28 99.0 89 16 130/62 (84) 98 07/13/17 04:00 78 07/13/17 00:00 102 07/12/17 22:42 101.4 98 18 138/64 (88) 95 07/12/17 20:00 90 07/12/17 19:22 98.8 101 16 116/75 (89) 95 07/12/17 17:12 99.1 07/12/17 16:13 100.7 96 16 132/63 (86) 94 07/12/17 16:05 99 07/12/17 15:14 100.0 97 18 134/64 (87) 96 07/12/17 11:45 99.3 90 16 124/58 80 95 Physical Exam CONSTITUTIONAL/GENERAL: This is an adequately nourished patient, in no apparent distress. TUBES/LINES/DRAINS: R side PORT in place surrounded by the macular-papular rash SKIN: Mild - to modereata slightly raised non pruritic rash R chest , or lesions. Skin temperature appropriate. Not diaphoretic. HEAD: Atraumatic. Normocephalic. EYES: Pupils equal and round and reactive. Extraocular motions intact. No scleral icterus. No injection or drainage. Fundi not examined. ENT: Hearing grossly normal. Nose without bleeding or purulent drainage. Throat without visible erythema, exudates, masses, or lesions. NECK: Trachea midline. Supple, nontender. No palpable thyroid enlargement or nodularity. CARDIOVASCULAR: Regular rate and rhythm without murmurs, gallops, or rubs. No JVD. Peripheral pulses symmetric. RESPIRATORY/CHEST: Symmetric, unlabored respirations. Clear to auscultation. Breath sounds equal bilaterally. No wheezes, rales, or rhonchi. GASTROINTESTINAL: Abdomen soft, non-tender, nondistended. No hepato-splenomegaly , or palpable masses. No guarding. Bowel sounds present. GENITOURINARY: Without palpable bladder distension. Herrera catheter in place with cloudy light yellow urine B/l hard inguinal masses R about 6 cm, L about 2.5 cm MUSCULOSKELETAL: Extremities without clubbing, cyanosis, or edema. No joint tenderness or effusion noted. No calf tenderness. No mottling or clubbing. LYMPHATICS: No palpable cervical or supraclavicular adenopathy. B/l fixed firm inguinal lymphadenopathy as above NEUROLOGICAL: Awake and alert. Motor and sensory grossly within normal limits. Follows commands. Clear speech. Moves all extremities. PSYCHIATRIC: No obvious anxiety/depression. no apparent hallucinations or other psychotic thought process. Laboratory Laboratory Tests Test 07/12/17 13:12 07/12/17 18:26 07/13/17 08:15 Vitamin B12 Level 979 Thyroid Stimulating Hormone 3rd Gen 1.000 White Blood Count 2.0 Red Blood Count 2.60 Hemoglobin 7.7 Hematocrit 22.1 Mean Corpuscular Volume 85.1 Mean Corpuscular Hemoglobin 29.7 Mean Corpuscular Hemoglobin Concent 34.9 Red Cell Distribution Width 14.5 Platelet Count 139 Mean Platelet Volume 6.0 Neutrophils (%) (Auto) 59.0 Lymphocytes (%) (Auto) 30.5 Monocytes (%) (Auto) 6.2 Eosinophils (%) (Auto) 4.0 Basophils (%) (Auto) 0.3 Neutrophils # (Auto) 1.2 Lymphocytes # (Auto) 0.6 Monocytes # (Auto) 0.1 Eosinophils # (Auto) 0.1 Basophils # (Auto) 0.0 CBC Comment AUTO DIFF Differential Comment AUTO DIFF CONFIRMED Blood Urea Nitrogen 11 Creatinine 0.74 Random Glucose 106 Total Protein 5.7 Albumin 1.9 Calcium Level 8.2 Alkaline Phosphatase 90 Aspartate Amino Transf (AST/SGOT) 15 Alanine Aminotransferase (ALT/SGPT) 11 Total Bilirubin 0.6 Sodium Level 136 Potassium Level 3.7 Chloride Level 105 Carbon Dioxide Level 24.0 Anion Gap 7 Estimat Glomerular Filtration Rate 77 Date/Time Source Procedure Growth Status 07/13/17 10:37 Blood Peripheral Aerobic Blood Culture Pending Received 07/13/17 10:37 Blood Peripheral Anaerobic Blood Culture Pending Received 07/12/17 16:35 Nasal Aspirate Influenza Types A,B Antigen (YANCY) - Final NEGATIVE FOR FLU A AND B ANTIGEN.... Complete 07/12/17 11:50 Urine Catheterized Urine Legionella Antigen - Final PRESUMPTIVE NEGATIVE FOR LEGIONELLA P... Complete 07/12/17 11:50 Urine Catheterized Urine Streptococcus pneumoniae Antigen (M - Final PRESUMPTIVE NEGATIVE FOR STREPTOCOCCU... Complete Result Diagram: 07/13/17 0815 07/13/17 0815 Imaging Last Impressions Chest X-Ray 07/12/17 0000 Signed Impressions: Service Date/Time: Wednesday, July 12, 2017 01:19 - CONCLUSION: The lungs are clear. Eleazar Mora MD Assessment and Plan Assessment and Plan Complicated UTI, psuedomonas pt with obstructive uorpathy 2/2 metastatic kidney cancer Immunosuppressed sp chemo R chest rash - mild cellulitis cont azactam cont vanco add levaquine \ fu blood and urine clx Marquita Selby MD Jul 13, 2017 12:10
[2017-07-13] MEDS ORDERED: MAGNESIUM HYDROXIDE SUSP 30 ML CUP PO ONE (12:15)
--- NOTE | 2017-07-13 12:25 | HHI.PR ---
Subjective Remarks Follow up on patient with fever, weakness, near syncope. Patient seen and examined. States she feels a little better this morning. No fever today but patient did spike a temperature of 101.4 last night. She denies any chest pain or shortness of breath. She does report a mild chronic nonproductive cough. She denies any nausea, vomiting or abdominal pain. She has not had a bowel movement in 4 days. She is noted to have a pleuritic erythematous rash over the right upper anterior chest just superior to her [id number] placement. Objective Vitals Vital Signs Date Time Temp Pulse Resp B/P (MAP) Pulse Ox O2 Delivery O2 Flow Rate FiO2 07/13/17 11:36 99.1 97 18 131/59 (83) 100 07/13/17 11:24 92 07/13/17 07:32 92 07/13/17 07:11 99.9 97 18 112/53 (72) 95 07/13/17 04:28 99.0 89 16 130/62 (84) 98 07/13/17 04:00 78 07/13/17 00:00 102 07/12/17 22:42 101.4 98 18 138/64 (88) 95 07/12/17 20:00 90 07/12/17 19:22 98.8 101 16 116/75 (89) 95 07/12/17 17:12 99.1 07/12/17 16:13 100.7 96 16 132/63 (86) 94 07/12/17 16:05 99 07/12/17 15:14 100.0 97 18 134/64 (87) 96 I/O 07/12/17 07/12/17 07/12/17 07/13/17 07/13/17 07/13/17 07:00 15:00 23:00 07:00 15:00 23:00 Intake Total 1100 ml 100 ml 1100 ml Output Total 1575 ml 850 ml 550 ml Balance -475 ml -750 ml 550 ml Intake IV Total 1100 ml 100 ml 1100 ml Output Urine Total 1575 ml 850 ml 550 ml Result Diagram: 07/13/17 0815 07/13/17 0815 Imaging Last Impressions Chest X-Ray 07/12/17 0000 Signed Impressions: Service Date/Time: Wednesday, July 12, 2017 01:19 - CONCLUSION: The lungs are clear. Eleazar Mora MD Objective Remarks GENERAL: WDWN pleasant elderly white female, in no acute distress. Awake and alert. Sitting up on side of bed. at bedside. SKIN: + Erythematous macular rash over right anterior chest wall/shoulder superior to infuse a port placement, ?cellulitic. +mass right posterior shoulder. HEENT: PERRLA, EOMI. No scleral icterus or conjunctival pallor. No lid lag or facial droop. No nasal drainage or purulence. MMM. CARDIOVASCULAR: Regular rate and rhythm. No obvious murmurs to auscultation. No chest tenderness to palpation. RESPIRATORY: No obvious rhonchi or wheezing. Clear to auscultation. Breath sounds equal bilaterally. GASTROINTESTINAL: Abdomen soft, non-tender, nondistended. BS normal. GENITOURINARY: Herrera catheter in place with clear yellow urine in the bag. MUSCULOSKELETAL: Extremities without clubbing, cyanosis, or edema. No obvious deformities. NEUROLOGICAL: Awake, alert and oriented x4. No focal neurologic deficits. Moving both upper and lower extremities spontaneously. Normal speech. PSYCHIATRIC: Calm and pleasant. Appropriate mood and affect. Normal judgment and insight. Medications and IVs Current Medications Medications (Trade) Dose Ordered Sig/Prabha Route Start Time Stop Time Status Last Admin Aztreonam 2000 mg/ Sodium Chloride 100 ml @ 200 mls/hr Q8H IV 07/12/17 09:00 07/13/17 08:05 Sodium Chloride 1,000 ml @ 100 mls/hr Q10H IV 07/12/17 02:20 07/13/17 08:05 (NS Flush) 2 ml UNSCH PRN IV FLUSH 07/12/17 02:30 07/12/17 15:53 (NS Flush) 2 ml BID IV FLUSH 07/12/17 09:00 07/12/17 07:59 (Zofran Inj) 4 mg Q6H PRN IVP 07/12/17 02:30 07/13/17 06:40 (Tylenol) 650 mg Q6H PRN PO 07/12/17 02:30 07/12/17 22:50 ([place] 5-325 Mg) 1 tab Q4H PRN PO 07/12/17 02:30 07/13/17 06:00 (Morphine Inj) 2 mg Q3H PRN IV PUSH 07/12/17 02:30 (Katheryn-Colace) 1 tab BID PO 07/12/17 09:00 07/13/17 08:05 (Milk Of Magnesia Liq) 30 ml Q12H PRN PO 07/12/17 02:30 (Senokot) 17.2 mg Q12H PRN PO 07/12/17 02:30 (Dulcolax Supp) 10 mg DAILY PRN RECTAL 07/12/17 02:30 (Lactulose Liq) 30 ml DAILY PRN PO 07/12/17 02:30 (Flonase Abhi Spr) 1 spray DAILY EACH NARE 07/13/17 09:00 07/13/17 08:05 (Antivert) 25 mg Q6H PRN PO 07/12/17 12:30 (Theragran) 1 tab DAILY PO 07/13/17 09:00 07/13/17 08:05 (Miralax) 17 gm DAILY PO 07/13/17 09:00 (D50w (Vial) Inj) 50 ml UNSCH PRN IV PUSH 07/12/17 12:45 (Glucagon Inj) 1 mg UNSCH PRN OTHER 07/12/17 12:45 (NovoLOG SUPPLEMENTAL SCALE) 1 ACHS SLIDING SCALE SQ 07/12/17 17:00 (Heparin Inj) 5,000 units Q8HR SQ 07/12/17 22:00 Future Hold 07/13/17 06:00 (Sensi-Care Protective Barrier Oint) 1 applic DAILY TOPICAL 07/13/17 09:00 07/13/17 08:05 Pharmacy Profile Note 0 ml @ 0 mls/hr UNSCH OTHER 07/13/17 09:30 Vancomycin HCl 1250 mg/Sodium Chloride 262.5 ml @ 250 mls/hr Q12H IV 07/13/17 12:00 07/13/17 11:22 ([facility] Ordered Lab Info) SPECIFIC LAB TO BE DRAWN:VANCOMYCIN TROUGH DATE TO... ONCE ONCE .XX 07/14/17 11:45 07/14/17 11:46 A/P Problem List: (1) Fever ICD Code: R50.9 - Fever, unspecified (2) UTI (urinary tract infection) ICD Code: N39.0 - Urinary tract infection, site not specified (3) Breast CA ICD Code: C50.919 - Malignant neoplasm of unspecified site of unspecified female breast Assessment and Plan 71-year-old female with a PMH of HTN, Hyperlipidemia, Depression, IBS and Breast CA on Chemo who presented to the ER with complaints of generalized malaise and fever. Neutropenic fever +immunocompromised on chemotherapy White count dropped to 2.0 this am Tmax 101.4 overnight CXR w/no acute findings Blood cultures with no growth x 2 day Flu antigen neg Legionella and pneumococcal antigen negative -Neutropenic precautions -Consult oncology, appreciate assistance -repeat BCX -continue on IV Aztreonam. Add IV Vancomycin. -Continue to monitor fevers -IVF for hydration Anemia, secondary to chemotherapy Thrombocytopenia Hgb dropped from 9.3 to 7.7 No signs of active bleeding -Hold Heparin -serial H&H for close monitoring -check coag studies -Monitor for any evidence of bleeding ?early cellulitis right anterior chest just superior to Infuse a Port site -Consult ID, appreciate recommendations Pseudomonal UTI: UA with mod leukocytes, 7 WBCs, occ bacteria. Patient has chronic indwelling herrera. Denies any c/o abdominal pain. Urine culture positive for Pseudomonas -Continue on IV Aztreonam. Await sensitivities. Right ureter CA, s/p open right nephroureterectomy with excision of bladder cuff : chronic indwelling herrera. Follows with Dr. Lopez. Has appt Friday to have herrera changed. Difficult Herrera exchange per patient report, only has one nurse at Dr. Lopez's office who is able to do Breast CA s/p mastectomy: follows at [place], currently on chemotherapy, outpatient follow up at [place] as scheduled to resume treatment. -pain management -Continue with PT/OT -Consult palliative care CKD Creatinine appears to near baseline -continue to monitor kidney function as indicated -avoid nephrotoxic agents Hx of DM: not on any diabetic meds HgbA1c pending -accucheks and ISS Constipation, no BM in 4 days -Pericolace BID -Discontinue Miralax daily, patient states it upsets her stomach -MOM now. Dulcolax suppository if needed. -monitor for BM DVT Prophylaxis: Heparin sq Discharge Planning Patient not ready for discharge. Neutropenic, spiking fevers. Pending clinical improvement, Infectious disease and oncology clearance. Cheryl Avina Jul 13, 2017 12:25
[2017-07-13 12:35] LABS: HEMATOCRIT 23.8 % (35.0-46.0); HEMOGLOBIN 8.2 GM/DL (11.6-15.3)
[2017-07-13] MEDS: LEVOFLOXACIN 750 MG TAB PO SCH (13:00)
[2017-07-13] MEDS: ACETAMINOPHEN 325 MG TAB PO PRN ×2 (13:06→20:45)
[2017-07-13 13:14] LABS: HEMOGLOBIN A1C 5.3 % (4.3-6.0)
[2017-07-13 14:37] LABS: INTERNATIONAL NORMALIZED RATIO 1.1 RATIO; PROTHROMBIN TIME - PATIENT 11.4 SEC (9.8-11.6)
[2017-07-13 20:10] LABS: HEMATOCRIT 23.1 % (35.0-46.0); HEMOGLOBIN 7.8 GM/DL (11.6-15.3)
[2017-07-13] MEDS: HYDROCORTISONE 1% CREAM 30 GM TOPICAL SCH (20:45)
[2017-07-14] VITALS (11 sets, daily range): BP systolic 111–130; BP diastolic 57–68; PULSE 78–136; RESP 16–18; TEMP 98.4–100.2; O2SAT 91–99
[2017-07-14] MEDS: VANCOMYCIN INJ 1,250 MG in SODIUM CHLOR 0.9% 250 ML INJ 250 ML IV SCH ×3 (00:04→23:27)
[2017-07-14 00:40] LABS: HEMATOCRIT 21.6 % (35.0-46.0); HEMOGLOBIN 7.5 GM/DL (11.6-15.3)
[2017-07-14] MEDS: AZTREONAM INJ 2,000 MG in SODIUM CHLORIDE 0.9% INJ 100 ML IV SCH ×3 (01:53→16:27)
[2017-07-14] MEDS: SODIUM CHLOR 0.9% 1000 ML INJ 1,000 ML IV SCH ×3 (04:20→23:27)
[2017-07-14] MEDS: ACETAMINOPHEN 325 MG TAB PO PRN ×2 (05:22→20:47)
[2017-07-14 05:44] LABS: HEMATOCRIT 22.4 % (35.0-46.0); HEMOGLOBIN 7.8 GM/DL (11.6-15.3); MEAN CELL VOLUME 84.8 FL (80.0-100.0); MEAN CORPUSCULAR HEMOGLOBIN 29.6 PG (27.0-34.0); MEAN CORPUSCULAR HGB CONC 34.9 % (32.0-36.0); MEAN PLATELET VOLUME 5.8 FL (7.0-11.0); PLATELET COUNT 113 TH/MM3 (150-450); RED BLOOD COUNT 2.64 MIL/MM3 (4.00-5.30); RED CELL DISTRIBUTION WIDTH 14.5 % (11.6-17.2); WHITE BLOOD COUNT 2.1 TH/MM3 (4.0-11.0)
[2017-07-14 07:10] LABS: LYMPHOCYTES 29 % (9-44); METAMYELOCYTES 1 % (0-1); MONOCYTES 5 % (0-8); NEUTROPHIL # MANUAL DIFF 1.4 TH/MM3 (1.8-7.7); POLYS (SEG NEUTROPHILS) 64 % (16-70)
[2017-07-14] MEDS: INSULIN ASPART SUPPLEMENTAL SCALE SQ SCH ×3 (08:00→16:20)
--- NOTE | 2017-07-14 08:35 | MB ---
cc: Shawnee De La Torre MD DATE: 07/13/2017 CHIEF COMPLAINT: 1. 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 2. Febrile neutropenia in a patient currently on chemotherapy. HISTORY OF PRESENT ILLNESS: Ms. 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 She was admitted to the emergency room on 07/12/2017 with generalized malaise and fever. She reports that she had an outpatient PET scan on Friday and then she noticed that she started to have fatigue, diffuse body aches and fever up to 101. She is receiving her cancer care under an oncologist up at [facility]. LABORATORY STUDIES: On admission with white blood cell count 2.0, hemoglobin 7.7, platelet count is 139,000, ANC is 1200. Creatinine is 0.74. Liver function test within normal limits. Total protein 5.7, albumin is 1.9. Coags are within normal limits. Blood cultures are pending. Urine for legionella and strep pneumo was presumed negative. Urine culture is preliminary, growing Pseudomonas. She is currently on broad spectrum antibiotics with vancomycin and aztreonam. PAST MEDICAL HISTORY: 1. Hypertension. 2. Hyperlipidemia. 3. Depression. 4. Irritable bowel syndrome. 5. Breast cancer, status post treatment in 1999. 6. 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 PAST SURGICAL HISTORY: 1. Cystoscopy. 2. Tubal ligation. 3. Right mastectomy. 4. Right nephrectomy. ALLERGIES: PENICILLIN G. ROS: as above in HPI FAMILY HISTORY: The patient reports family history of cancer. She reports her mother had a history of lung cancer. SOCIAL HISTORY: Negative for tobacco, alcohol or illegal drug use. She has a good support system with her family. PHYSICAL EXAMINATION: GENERAL: Elderly lady, in no distress, resting comfortably in bed. HEAD: Normocephalic, atraumatic. EYES: PERRLA, EOMI. NECK: Supple. No palpable lymphadenopathy. CARDIOVASCULAR: Regular rate and rhythm. No murmurs. RESPIRATORY: Clear to auscultation bilaterally. ABDOMEN: Soft, nontender, nondistended. Bowel sounds present. NEUROLOGIC: Awake and alert x 3. No focal deficits. PSYCHIATRIC: Appropriate mood and affect. ASSESSMENT AND PLAN: 1. Febrile neutropenia associated with weakness and near syncope and immunocompromised patient. Urine cultures were preliminary growth of Pseudomonas. Blood cultures pending. Chest x-ray with no acute findings. She is on broad spectrum antibiotics with vancomycin and Zosyn. Continue to follow. 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 The patient reports that she has previously been treated with cisplatin and gemcitabine x 3 cycles. She reports that this was poorly tolerated, requiring hospital admission at the [facility]. She has also progressed on atezolizumab. She is currently on pemetrexed therapy. Her care is under Dr. Cordoba at [place]. 2. Inpatient oncology team will continue to follow. 3. Cytopenia due to chemotherapy. Inpatient oncology team will continue to follow. MD MACI Dillon/JAQUAN , 05:05 PM , 06:01 PM MTDBreanne
[2017-07-14] MEDS: MULTIVITAMIN TAB PO SCH (08:42)
[2017-07-14] MEDS: LEVOFLOXACIN 750 MG TAB PO SCH (08:42)
[2017-07-14] MEDS: HYDROCORTISONE 1% CREAM 30 GM TOPICAL SCH ×2 (08:42→20:11)
[2017-07-14] MEDS: DOCUSATE SODIUM 50 MG/SENNA 8.6 MG TAB PO SCH ×2 (08:42→20:12)
[2017-07-14] MEDS: FLUTICASONE PROPIONATE 50 MCG/ACT 16 GM NASAL SPRAY EACH NARE SCH (08:47)
[2017-07-14] MEDS: SODIUM CHLORIDE 0.9% FLUSH 10 ML FLUSH IV FLUSH SCH ×2 (09:00→20:11)
[2017-07-14] MEDS: ONDANSETRON HCL 4 MG/2 ML VIAL IVP PRN ×2 (09:01→17:56)
[2017-07-14] MEDS: MAGNESIUM HYDROXIDE SUSP 30 ML CUP PO PRN (09:01)
[2017-07-14] MEDS: ACETAMINOPHEN/HYDROcodone 325 MG/5 MG TAB PO PRN ×2 (09:02→17:57)
[2017-07-14] MEDS: PETROLATUM 49%/ZINC OXIDE 15% 4 OUNCE TUBE TOPICAL SCH (09:07)
--- NOTE | 2017-07-14 09:22 | PD.ONC.PN ---
Subjective Subjective Remarks Tmax 102.3 overnight. Patient resting in bed in nad. states she feels slightly better today. Less weak then when she came into the hospital. She still feels fatigued overall and has pain when she moves her knee. Objective Data Date Time Temp Pulse Resp B/P (MAP) Pulse Ox O2 Delivery O2 Flow Rate FiO2 07/14/17 09:12 99.0 89 18 122/59 (80) 96 07/14/17 06:22 16 07/14/17 05:12 99.9 81 16 130/66 (87) 99 07/14/17 04:04 85 07/14/17 00:08 80 07/14/17 00:07 98.5 78 16 111/57 (75) 94 07/13/17 20:36 102.3 90 16 127/77 (94) 96 07/13/17 20:20 16 07/13/17 20:02 89 07/13/17 16:44 98.6 85 16 125/69 (87) 97 07/13/17 12:45 100.4 99 16 132/67 (88) 97 07/13/17 11:36 99.1 97 18 131/59 (83) 100 07/13/17 11:24 92 07/14/17 07/14/17 07/14/17 07:00 15:00 23:00 Intake Total 360 ml Output Total 2000 ml Balance -1640 ml Result Diagram: 07/14/17 0515 07/13/17 0815 Laboratory Results Laboratory Tests Test 07/13/17 12:05 07/13/17 13:21 07/13/17 19:28 07/14/17 00:18 Hemoglobin 8.2 GM/DL 7.8 GM/DL 7.5 GM/DL Hematocrit 23.8 % 23.1 % 21.6 % Prothrombin Time 11.4 SEC Prothromb Time International Ratio 1.1 RATIO Test 07/14/17 05:15 White Blood Count 2.1 TH/MM3 Red Blood Count 2.64 MIL/MM3 Hemoglobin 7.8 GM/DL Hematocrit 22.4 % Mean Corpuscular Volume 84.8 FL Mean Corpuscular Hemoglobin 29.6 PG Mean Corpuscular Hemoglobin Concent 34.9 % Red Cell Distribution Width 14.5 % Platelet Count 113 TH/MM3 Mean Platelet Volume 5.8 FL CBC Comment AUTO DIFF Differential Total Cells Counted 100 Neutrophils % (Manual) 64 % Lymphocytes % 29 % Monocytes % 5 % Eosinophils % 1 % Neutrophils # (Manual) 1.4 TH/MM3 Metamyelocytes 1 % Differential Comment FINAL DIFF MANUAL Platelet Estimate LOW Platelet Morphology Comment NORMAL Red Cell Morphology Comment NORMAL Culture Results Microbiology Date/Time Source Procedure Growth Status 07/13/17 10:37 Blood Peripheral Aerobic Blood Culture Pending Received 07/13/17 10:37 Blood Peripheral Anaerobic Blood Culture Pending Received 07/13/17 10:30 Blood Peripheral Aerobic Blood Culture Pending Received 07/13/17 10:30 Blood Peripheral Anaerobic Blood Culture Pending Received 07/11/17 22:55 Blood Peripheral Aerobic Blood Culture - Preliminary NO GROWTH IN 2 DAYS Resulted 07/11/17 22:55 Blood Peripheral Anaerobic Blood Culture - Preliminary NO GROWTH IN 2 DAYS Resulted 07/11/17 22:50 Blood Peripheral Aerobic Blood Culture - Preliminary NO GROWTH IN 2 DAYS Resulted 07/11/17 22:50 Blood Peripheral Anaerobic Blood Culture - Preliminary NO GROWTH IN 2 DAYS Resulted 07/12/17 16:35 Nasal Aspirate Influenza Types A,B Antigen (YANCY) - Final NEGATIVE FOR FLU A AND B ANTIGEN.... Complete 07/12/17 11:50 Urine Catheterized Urine Legionella Antigen - Final PRESUMPTIVE NEGATIVE FOR LEGIONELLA P... Complete 07/12/17 11:50 Urine Catheterized Urine Streptococcus pneumoniae Antigen (M - Final PRESUMPTIVE NEGATIVE FOR STREPTOCOCCU... Complete 07/12/17 11:50 Urine Clean Catch Urine Culture - Final Pseudomonas Aeruginosa Complete Administered Medications Medications (Trade) Dose Ordered Sig/Prabha Route PRN Reason Start Time Stop Time Status Last Admin Dose Admin Aztreonam 2000 mg/ Sodium Chloride 100 ml @ 200 mls/hr Q8H IV 07/12/17 09:00 07/14/17 08:41 Sodium Chloride 1,000 ml @ 100 mls/hr Q10H IV 07/12/17 02:20 07/14/17 09:01 Sodium Chloride (NS Flush) 2 ml UNSCH PRN IV FLUSH FLUSH AFTER USING IV ACCESS 07/12/17 02:30 07/12/17 15:53 Sodium Chloride (NS Flush) 2 ml BID IV FLUSH 07/12/17 09:00 07/12/17 07:59 Ondansetron HCl (Zofran Inj) 4 mg Q6H PRN IVP NAUSEA OR VOMITING 07/12/17 02:30 07/14/17 09:01 Acetaminophen (Tylenol) 650 mg Q6H PRN PO FEVER/PAIN SCALE 1 TO 2 07/12/17 02:30 07/14/17 05:22 Acetaminophen/ Hydrocodone Bitart ([place] 5-325 Mg) 1 tab Q4H PRN PO PAIN SCALE 3 TO 5 07/12/17 02:30 07/14/17 09:02 Senna/Docusate Sodium (Katheryn-Colace) 1 tab BID PO 07/12/17 09:00 07/14/17 08:42 Magnesium Hydroxide (Milk Of Yeni Nagy) 30 ml Q12H PRN PO Mild constipation 07/12/17 02:30 07/14/17 09:01 Fluticasone Propionate (Flonase Abhi Spr) 1 spray DAILY EACH NARE 07/13/17 09:00 07/14/17 08:47 Multivitamins (Theragran) 1 tab DAILY PO 07/13/17 09:00 07/14/17 08:42 Heparin Sodium (Porcine) (Heparin Inj) 5,000 units Q8HR SQ 07/12/17 22:00 Future Hold 07/13/17 06:00 Petrolatum/Zinc Oxide (Sensi-Care Protective Barrier Oint) 1 applic DAILY TOPICAL 07/13/17 09:00 07/14/17 09:07 Vancomycin HCl 1250 mg/Sodium Chloride 262.5 ml @ 250 mls/hr Q12H IV 07/13/17 12:00 07/14/17 00:04 Levofloxacin (Levaquin) 750 mg DAILY PO 07/13/17 13:00 07/14/17 08:42 Hydrocortisone (Hydrocortisone 1% Cream) 1 applic BID TOPICAL 07/13/17 21:00 07/14/17 08:42 Objective Remarks GENERAL: Well-nourished, well-developed patient. SKIN: Warm and dry. HEAD: Normocephalic. EYES: No scleral icterus. No injection or drainage. NECK: Supple, trachea midline. No JVD or lymphadenopathy. LYMPHATIC: No adenopathy. CARDIOVASCULAR: Regular rate and rhythm without murmurs. RESPIRATORY: Breath sounds equal bilaterally. No accessory muscle use. GASTROINTESTINAL: Abdomen soft, non-tender, nondistended. EXTREMITIES: No cyanosis, or edema. MUSCULOSKELETAL: Adequate muscle tone. NEUROLOGICAL: No obvious focal deficit. Awake, alert, and oriented x3. PSYCHIATRIC: Appropriate mood and affect; insight and judgment normal. 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 status post right nephrectomy --previously treated with cisplatin and gemcitabine x 3 cycles. She reports that this was poorly tolerated, requiring hospital admission at the [facility]. She is currently on a medication, which I believe may be atezolizumab, under the direction of oncologist at [place]. Plan 1. continue supportive care with IVF, antibiotics 2. monitor blood cultures 3. consider blood transfusion if hgb falls to less than 7.5mg/dL 4. patient due for her herrera catheter change, she states she is usually a very difficult catheter placement. will consult her urologist Dr. Lopez for assistance. Attending Statement The exam, history, and the medical decision-making described in the above note were completed with the assistance of the mid-level provider. I reviewed and agree with the findings presented. I attest that I had a [id number] encounter with the patient on the same day, and personally performed and documented my assessment and findings in the medical record. 71 yoF wtih metastatic TCC of the uterter with progression on multiple past lines of therapy currently on alimta. She is admitted with neutropenic fever and is currently on broad spectrum antibiotic therapy. Follow cultures. Lexus Gary Jul 14, 2017 09:21 Shawnee De La Torre MD July 15, 2017 09:22
--- NOTE | 2017-07-14 11:06 | PD.CONS ---
Consult Service Palliative Care Consult Requested By Cheryl SHINE Primary Care Physician Elizabeth Moncada D.O. Oncologist-Dr. Cordoba at [facility] /[place] Reason for Consultation a. To assist with evaluation and management of symptoms including:Pain, debility b. To assist medical decision maker(s) with: better understanding of current medical conditions; weighing benefits/burdens of medical treatment options; making medical treatment decisions. 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 Patient presented to the ER by ambulance on 07/11/17 complaining of generalized malaise and fever with a temperature of 101F. Patient's had a NM Bone scan was on 07/12 prior to presentation of symptoms. Patient is currently on chemotherapy for high-grade transitional cell carcinoma and she follows at [facility]. She was restarted on chemotherapy after failing (showing no improvement) immunomodulation treatment a week ago. Patient was diagnosed with high-grade transitional cell carcinoma in July 2015 and she underwent right nephrectomy at that time. In 2016, patient started to have complications with vaginal bleeding and voiding problems. Patient was referred to [facility] and was started on chemotherapy October 2016. Patient`s last chemo treatment was on 07/07/17. Patient has been having pain to the right knee and her oncologist ordered bone scan which was done on July 11. ER course: * Vital signs: Temperature 99.7, BP 109 453, heart rate 109, temperature 99.7 degrees Fahrenheit, O2 saturation 96% on room * Laboratory workup revealed WBC 7.3, hemoglobin 9.3, hematocrit 27.1, platelet count 246, neutrophils 89.8%, potassium 3.7, BUN/creatinine 17/1.05, troponin less than 0.02, total protein 6.7, albumin 2.5, vitamin B12 979, TSH 1.000 * Urine culture positive for pseudomonas aeruginosa * Chest x-ray revealed clear lungs. * Patient admitted for further evaluation and treatment Infectious disease Dr. Selby on 07/13/17 consulted for evaluation and management of patient with fever and neutropenia, recommended continuing ongoing antibiotics with the addition of Levaquin, follow-up blood and urine culture. Blood cultures collected on 07/13 are showing no growth. Oncology Dr. 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 Palliative care consulted to assist with symptom management and establishing goals of care. Urology Dr. Lopez consulted on 07/14 for evaluation and managing patient with a chronic herrera catheter that is due for change. Herrera catheter changed today 07/14. Patient is a low-grade temp with a T-max of 99.9F orally today. Laboratory workup today revealing hemoglobin WBC 2.1, 7.8, hematocrit 22.4, platelet count 113, potassium 3.7, BUN/creatinine 11/0.74, total protein 5.7, albumin 1.9. No recent imaging. Patient seen and examined in her room in the presence of her . Patient is alert, oriented to self, place and situation. Patient endorsing pain to right knee. Patient appears to have insight regarding her medical condition. Obtained psychosocial, past medical history and events leading to this hospitalization. Per and patient, patient started presenting with symptoms after she came back from [place] where she had a bone scan done. Patient' s Matthew Salgado was able to pull up patient`s portal results for the NM bone scan through his cell phone from [facility] and they have just received the results from the NM bone scan that patient had on 07/11. Patient had NM bone scan on 07/11/2017 prior to coming to the ER and it revealed multiple foci of increased radiotracer activity, suggestive of metastatic disease. Increased radiotracer activity involving the right distal humerus, right clavicle, right scapula, and bilateral distal femur. Multiple foci of increased radiotracer seen in the right posterior ribs. Requested to print out results and bring copy for the medical team to see. Addressed code status, discussed limitations and benefits of CPR given ongoing comorbidities. Patient elected to be a DNR/DNI with the support of her . Patient does not want to be "connected to any machines". Patient verbalized that she would not want to suffer. She has a living will and she mentioned that her Damian Matthew is her healthcare surrogate and her alternate healthcare surrogate is her daughter Tricia Castro. Patient's will bring in copies to the hospital. Introduced hospice philosophy and benefits. At this time patient would want to continue with aggressive treatment and she would also want to speak to her oncologist from [facility] Dr. Cordoba prior to making any decision to transition to comfort care. She feels that if her oncologist from [place] Dr. Cordoba advices her to continue with chemotherapy or offers any other treatment, she will most likely give it a try. Patient and appreciative of palliative consult. Palliative care contact information provided. Case discussed with Dr. Dickerson and bedside RN. . Function/Cognitive Trajectory Patient resided at home with his spouse and daughter. Patient is independent of all his ADLs. Requires minimal assistance with bathing. Patient uses a rolling walker for ambulation. She is able to verbalize her needs. Patient reports weight loss, due to poor appetite. Patient mentions that she usually weighs 168 pounds but she recently weighed 151 pounds. . Review of Systems Constitutional: COMPLAINS OF: Fatigue, Fever, Weight loss, Change in appetite, Pain, Generalized weakness Eyes: DENIES: Eye inflammation Ears, nose, mouth, throat: DENIES: Hearing loss, Nasal discharge Respiratory: COMPLAINS OF: Cough, DENIES: Shortness of breath Cardiovascular: COMPLAINS OF: Syncope, DENIES: Chest pain, Lower Extremity Edema Gastrointestinal: COMPLAINS OF: Constipation, DENIES: Abdominal pain, Nausea, Vomiting Genitourinary: COMPLAINS OF: Urinary incontinence (Chronic Herrera catheter) Musculoskeletal: COMPLAINS OF: Joint pain (Right knee pain) Integumentary: COMPLAINS OF: Rash (Erythematous rash over the right upper anterior chest) Hematologic/Lymphatics: COMPLAINS OF: Bruising Neurologic: DENIES: Speech Problems Psychiatric: COMPLAINS OF: Depression, DENIES: Confusion, Hallucinations, Agitation Past Family Social History Coded Allergies: penicillin G (Verified Allergy, Unknown, Swelling, 03/24/17) Past Medical History Breast cancer , status post treatment in 1999 High-grade transitional cell carcinoma of the ureter, s/p right nephrectomy, currently receiving chemotherapy Hypertension Hyperlipidemia Depression Irritable bowel syndrome . Past Surgical History Cystoscopy Tubal ligation Right mastectomy Right neph[place] [address] Lopez Port placement . Reported Medications Ditropan XL 24 HR (Oxybutynin Chloride) 5 Mg Tab 5 Mg PO DAILY Tecentriq (Atezolizumab) 1,200 Mg/20 Ml (60 Mg/Ml) Vial 1,200 Ml IV EVERY 3 WEEKS [compazine] Unknown Dose PO DAILY Zofran (Ondansetron HCl) 4 Mg Tab 4 Mg PO Q12HR PRN Turmeric (Turmeric (Curcuma Longa)) 500 Mg Cap 500 Mg PO DAILY Fish Oil + D3 (Fish Oil-Cholecalciferol) 1,200-1,000 Mg-Unit Cap 1,400 Mg PO DAILY Singh Milk of Magnesia (Magnesium Hydroxide) 311 Mg Chew 2 Tab CHEW DAILY PRN Multiple Vitamin 1 Tab 1 Tab PO DAILY Meclizine (Meclizine HCl) 25 Mg Tab 25 Mg PO DIRECTED PRN Fluticasone Nasal [place] 50 Mcg/Act Naspr 50 Mcg EACH NARE DAILY . Current Medications Medications (Trade) Dose Ordered Sig/Prabha Route Start Time Stop Time Status Last Admin Aztreonam 2000 mg/ Sodium Chloride 100 ml @ 200 mls/hr Q8H IV 07/12/17 09:00 07/14/17 08:41 Sodium Chloride 1,000 ml @ 100 mls/hr Q10H IV 07/12/17 02:20 07/14/17 09:01 (NS Flush) 2 ml UNSCH PRN IV FLUSH 07/12/17 02:30 07/12/17 15:53 (NS Flush) 2 ml BID IV FLUSH 07/12/17 09:00 07/12/17 07:59 (Zofran Inj) 4 mg Q6H PRN IVP 07/12/17 02:30 07/14/17 09:01 (Tylenol) 650 mg Q6H PRN PO 07/12/17 02:30 07/14/17 05:22 ([place] 5-325 Mg) 1 tab Q4H PRN PO 07/12/17 02:30 07/14/17 09:02 (Morphine Inj) 2 mg Q3H PRN IV PUSH 07/12/17 02:30 (Katheryn-Colace) 1 tab BID PO 07/12/17 09:00 07/14/17 08:42 (Milk Of Magnesia Liq) 30 ml Q12H PRN PO 07/12/17 02:30 07/14/17 09:01 (Senokot) 17.2 mg Q12H PRN PO 07/12/17 02:30 (Dulcolax Supp) 10 mg DAILY PRN RECTAL 07/12/17 02:30 (Lactulose Liq) 30 ml DAILY PRN PO 07/12/17 02:30 (Flonase Abhi Spr) 1 spray DAILY EACH NARE 07/13/17 09:00 07/14/17 08:47 (Antivert) 25 mg Q6H PRN PO 07/12/17 12:30 (Theragran) 1 tab DAILY PO 07/13/17 09:00 07/14/17 08:42 (D50w (Vial) Inj) 50 ml UNSCH PRN IV PUSH 07/12/17 12:45 (Glucagon Inj) 1 mg UNSCH PRN OTHER 07/12/17 12:45 (NovoLOG SUPPLEMENTAL SCALE) 1 ACHS SLIDING SCALE SQ 07/12/17 17:00 (Heparin Inj) 5,000 units Q8HR SQ 07/12/17 22:00 Future Hold 07/13/17 06:00 (Sensi-Care Protective Barrier Oint) 1 applic DAILY TOPICAL 07/13/17 09:00 07/14/17 09:07 Pharmacy Profile Note 0 ml @ 0 mls/hr UNSCH OTHER 07/13/17 09:30 Vancomycin HCl 1250 mg/Sodium Chloride 262.5 ml @ 250 mls/hr Q12H IV 07/13/17 12:00 07/14/17 00:04 ([facility] Ordered Lab Info) SPECIFIC LAB TO BE DRAWN:VANCOMYCIN TROUGH DATE TO... ONCE ONCE .XX 07/14/17 11:45 07/14/17 11:46 (Levaquin) 750 mg DAILY PO 07/13/17 13:00 07/14/17 08:42 (Hydrocortisone 1% Cream) 1 applic BID TOPICAL 07/13/17 21:00 07/14/17 08:42 Family History Mother at age 70 -had history of lung cancer Father at age 67 from a stroke Brother -committed suicide-aid COPD, heart disease . Substance Use Tobacco: None reported Alcohol: None reported Prescription med abuse: None reported Illicits: None reported . Psychosocial History Patient was born and raised in [place], [place]. She moved to [place] in May of 1984. Patient is to a of 46 years. Patient has worked for [employer] in the [employer]. 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 She has 1 grandson. Patient enjoys boating and camping with her family. . Spiritual/Cultural Factors Patient is Adventist-she has a local friend who visits and is a Sack Keeper. . Living Will: Completed, but not made available Health Care Surrogate(s): [facility]- Spouse- Damian Castro- [phone] (home)/[phone](cell) Alternate ONQ-[id number]-XqcveMvx, Jekeftq-[phone] . Ethical and Legal Issues None identified at this time . Physical Exam Vital Signs Date Time Temp Pulse Resp B/P (MAP) Pulse Ox O2 Delivery O2 Flow Rate FiO2 07/14/17 09:12 99.0 89 18 122/59 (80) 96 07/14/17 06:22 16 07/14/17 05:12 99.9 81 16 130/66 (87) 99 07/14/17 04:04 85 07/14/17 00:08 80 07/14/17 00:07 98.5 78 16 111/57 (75) 94 07/13/17 20:36 102.3 90 16 127/77 (94) 96 07/13/17 20:20 16 07/13/17 20:02 89 07/13/17 16:44 98.6 85 16 125/69 (87) 97 07/13/17 12:45 100.4 99 16 132/67 (88) 97 07/13/17 11:36 99.1 97 18 131/59 (83) 100 07/13/17 11:24 92 Exam CONSTITUTIONAL/GENERAL: This is an adequately nourished patient, in no apparent distress. TUBES/LINES/DRAINS: [id number] right chest wall, Herrera catheter, SCDs SKIN: Erythematous rash to right chest wall and upper back. Ecchymoses on upper extremities. No wounds seen anteriorly. Skin temperature appropriate. Not diaphoretic. HEAD: Atraumatic. Normocephalic. EYES: Pupils equal and round and reactive. Extraocular motions intact. No scleral icterus. No injection or drainage. Fundi not examined. ENT: Hearing grossly normal. Nose without bleeding or purulent drainage. Moist oral mucosa NECK: Trachea midline. Supple, nontender. CARDIOVASCULAR: S1, S2 normal; no murmurs, gallops, or rubs. No JVD. Peripheral pulses symmetric. RESPIRATORY/CHEST: Symmetric, unlabored respirations. Clear to auscultation. No wheezes, rales, or rhonchi. GASTROINTESTINAL: Abdomen soft, non-tender, nondistended. No guarding. Bowel sounds present. GENITOURINARY: Without palpable bladder distension. Herrera catheter in place. MUSCULOSKELETAL: Extremities without clubbing, cyanosis, or edema. No calf tenderness. No mottling or clubbing. NEUROLOGICAL: Awake and alert. Motor and sensory grossly within normal limits. Follows commands. Cognitively sharp. Moves all extremities. PSYCHIATRIC: No obvious anxiety/depression. no apparent hallucinations or other psychotic thought process. Diagnostic Tests Laboratory Laboratory Tests Test 07/11/17 22:55 07/11/17 23:58 07/12/17 13:12 07/12/17 18:26 White Blood Count 7.3 TH/MM3 (4.0-11.0) Red Blood Count 3.19 MIL/MM3 (4.00-5.30) Hemoglobin 9.3 GM/DL (11.6-15.3) Hematocrit 27.1 % (35.0-46.0) Mean Corpuscular Volume 84.8 FL (80.0-100.0) Mean Corpuscular Hemoglobin 29.0 PG (27.0-34.0) Mean Corpuscular Hemoglobin Concent 34.2 % (32.0-36.0) Red Cell Distribution Width 15.0 % (11.6-17.2) Platelet Count 246 TH/MM3 (150-450) Mean Platelet Volume 6.3 FL (7.0-11.0) Neutrophils (%) (Auto) 89.8 % (16.0-70.0) Lymphocytes (%) (Auto) 8.4 % (9.0-44.0) Monocytes (%) (Auto) 0.8 % (0.0-8.0) Eosinophils (%) (Auto) 0.7 % (0.0-4.0) Basophils (%) (Auto) 0.3 % (0.0-2.0) Neutrophils # (Auto) 6.6 TH/MM3 (1.8-7.7) Lymphocytes # (Auto) 0.6 TH/MM3 (1.0-4.8) Monocytes # (Auto) 0.1 TH/MM3 (0-0.9) Eosinophils # (Auto) 0.0 TH/MM3 (0-0.4) Basophils # (Auto) 0.0 TH/MM3 (0-0.2) CBC Comment DIFF FINAL Differential Comment Blood Urea Nitrogen 17 MG/DL (7-18) Creatinine 1.05 MG/DL (0.50-1.00) Random Glucose 116 MG/DL (74-106) Total Protein 6.7 GM/DL (6.4-8.2) Albumin 2.5 GM/DL (3.4-5.0) Calcium Level 8.5 MG/DL (8.5-10.1) Alkaline Phosphatase 114 U/L (45-117) Aspartate Amino Transf (AST/SGOT) 21 U/L (15-37) Alanine Aminotransferase (ALT/SGPT) 20 U/L (10-53) Total Bilirubin 0.8 MG/DL (0.2-1.0) Sodium Level 134 MEQ/L (136-145) Potassium Level 3.7 MEQ/L (3.5-5.1) Chloride Level 99 MEQ/L (98-107) Carbon Dioxide Level 24.6 MEQ/L (21.0-32.0) Anion Gap 10 MEQ/L (5-15) Estimat Glomerular Filtration Rate 52 ML/MIN (>89) Lactic Acid Level 0.7 mmol/L (0.4-2.0) Total Creatine Kinase 29 U/L (26-192) Troponin I LESS THAN 0.02 NG/ML Lipase 73 U/L (73-393) Urine Color LIGHT-YELLOW (YELLW/STRAW) Urine Turbidity CLEAR (CLEAR) Urine pH 5.5 (5.0-8.5) Urine Specific [place] 1.003 (1.002-1.035) Urine Protein NEG mg/dL (NEG-TRACE) Urine Glucose (UA) NEG mg/dL (NEG) Urine Ketones TRACE mg/dL (NEG) Urine Occult Blood NEG (NEG) Urine Nitrite NEG (NEG) Urine Bilirubin NEG (NEG) Urine Urobilinogen LESS THAN 2.0 MG/DL (LESS Urine Leukocyte Esterase MOD (NEG) Urine RBC 3 /hpf (0-3) Urine WBC 7 /hpf (0-5) Urine Squamous Epithelial Cells <1 /hpf (0-5) Urine Bacteria OCC /hpf (NONE) Urine Mucus FEW /lpf (OCC) Microscopic Urinalysis Comment CULT NOT INDICATED Hemoglobin A1c 5.3 % (4.3-6.0) Vitamin B12 Level 979 PG/ML (193-986) Thyroid Stimulating Hormone 3rd Gen 1.000 uIU/ML (0.358-3.740) Test 07/13/17 08:15 07/13/17 12:05 07/13/17 13:21 07/13/17 19:28 White Blood Count 2.0 TH/MM3 (4.0-11.0) Red Blood Count 2.60 MIL/MM3 (4.00-5.30) Hemoglobin 7.7 GM/DL (11.6-15.3) 8.2 GM/DL (11.6-15.3) 7.8 GM/DL (11.6-15.3) Hematocrit 22.1 % (35.0-46.0) 23.8 % (35.0-46.0) 23.1 % (35.0-46.0) Mean Corpuscular Volume 85.1 FL (80.0-100.0) Mean Corpuscular Hemoglobin 29.7 PG (27.0-34.0) Mean Corpuscular Hemoglobin Concent 34.9 % (32.0-36.0) Red Cell Distribution Width 14.5 % (11.6-17.2) Platelet Count 139 TH/MM3 (150-450) Mean Platelet Volume 6.0 FL (7.0-11.0) Neutrophils (%) (Auto) 59.0 % (16.0-70.0) Lymphocytes (%) (Auto) 30.5 % (9.0-44.0) Monocytes (%) (Auto) 6.2 % (0.0-8.0) Eosinophils (%) (Auto) 4.0 % (0.0-4.0) Basophils (%) (Auto) 0.3 % (0.0-2.0) Neutrophils # (Auto) 1.2 TH/MM3 (1.8-7.7) Lymphocytes # (Auto) 0.6 TH/MM3 (1.0-4.8) Monocytes # (Auto) 0.1 TH/MM3 (0-0.9) Eosinophils # (Auto) 0.1 TH/MM3 (0-0.4) Basophils # (Auto) 0.0 TH/MM3 (0-0.2) CBC Comment AUTO DIFF Differential Comment AUTO DIFF CONFIRMED Blood Urea Nitrogen 11 MG/DL (7-18) Creatinine 0.74 MG/DL (0.50-1.00) Random Glucose 106 MG/DL (74-106) Total Protein 5.7 GM/DL (6.4-8.2) Albumin 1.9 GM/DL (3.4-5.0) Calcium Level 8.2 MG/DL (8.5-10.1) Alkaline Phosphatase 90 U/L (45-117) Aspartate Amino Transf (AST/SGOT) 15 U/L (15-37) Alanine Aminotransferase (ALT/SGPT) 11 U/L (10-53) Total Bilirubin 0.6 MG/DL (0.2-1.0) Sodium Level 136 MEQ/L (136-145) Potassium Level 3.7 MEQ/L (3.5-5.1) Chloride Level 105 MEQ/L (98-107) Carbon Dioxide Level 24.0 MEQ/L (21.0-32.0) Anion Gap 7 MEQ/L (5-15) Estimat Glomerular Filtration Rate 77 ML/MIN (>89) Prothrombin Time 11.4 SEC (9.8-11.6) Prothromb Time International Ratio 1.1 RATIO Test 07/14/17 00:18 07/14/17 05:15 Hemoglobin 7.5 GM/DL (11.6-15.3) 7.8 GM/DL (11.6-15.3) Hematocrit 21.6 % (35.0-46.0) 22.4 % (35.0-46.0) White Blood Count 2.1 TH/MM3 (4.0-11.0) Red Blood Count 2.64 MIL/MM3 (4.00-5.30) Mean Corpuscular Volume 84.8 FL (80.0-100.0) Mean Corpuscular Hemoglobin 29.6 PG (27.0-34.0) Mean Corpuscular Hemoglobin Concent 34.9 % (32.0-36.0) Red Cell Distribution Width 14.5 % (11.6-17.2) Platelet Count 113 TH/MM3 (150-450) Mean Platelet Volume 5.8 FL (7.0-11.0) CBC Comment AUTO DIFF Differential Total Cells Counted 100 Neutrophils % (Manual) 64 % (16-70) Lymphocytes % 29 % (9-44) Monocytes % 5 % (0-8) Eosinophils % 1 % (0-4) Neutrophils # (Manual) 1.4 TH/MM3 (1.8-7.7) Metamyelocytes 1 % (0-1) Differential Comment FINAL DIFF MANUAL Platelet Estimate LOW (NORMAL) Platelet Morphology Comment NORMAL (NORMAL) Red Cell Morphology Comment NORMAL (NORMAL) Result Diagram: 07/14/17 0515 07/13/17 0815 Microbiology Microbiology Date/Time Source Procedure Growth Status 07/13/17 10:37 Blood Peripheral Aerobic Blood Culture Pending Received 07/13/17 10:37 Blood Peripheral Anaerobic Blood Culture Pending Received 07/13/17 10:30 Blood Peripheral Aerobic Blood Culture Pending Received 07/13/17 10:30 Blood Peripheral Anaerobic Blood Culture Pending Received 07/11/17 22:55 Blood Peripheral Aerobic Blood Culture - Preliminary NO GROWTH IN 2 DAYS Resulted 07/11/17 22:55 Blood Peripheral Anaerobic Blood Culture - Preliminary NO GROWTH IN 2 DAYS Resulted 07/11/17 22:50 Blood Peripheral Aerobic Blood Culture - Preliminary NO GROWTH IN 2 DAYS Resulted 07/11/17 22:50 Blood Peripheral Anaerobic Blood Culture - Preliminary NO GROWTH IN 2 DAYS Resulted 07/12/17 16:35 Nasal Aspirate Influenza Types A,B Antigen (YANCY) - Final NEGATIVE FOR FLU A AND B ANTIGEN.... Complete 07/12/17 11:50 Urine Catheterized Urine Legionella Antigen - Final PRESUMPTIVE NEGATIVE FOR LEGIONELLA P... Complete 07/12/17 11:50 Urine Catheterized Urine Streptococcus pneumoniae Antigen (M - Final PRESUMPTIVE NEGATIVE FOR STREPTOCOCCU... Complete 07/12/17 11:50 Urine Clean Catch Urine Culture - Final Pseudomonas Aeruginosa Complete Imaging Last Impressions Chest X-Ray 07/12/17 0000 Signed Impressions: Service Date/Time: Wednesday, July 12, 2017 01:19 - CONCLUSION: The lungs are clear. Eleazar Mora MD Other Right chest wall [id number] accessed 07/14/2017 -Herrera catheter changed . Patient/Family Conference Present at Family Conference: Patient's spouse, Matthew Salgado . Family Conference Time (mins): 65 Family Conference Location: Bedside Issues Discussed: * Palliative care role, purpose, approach * Additional medical, psychosocial, and spiritual history * Patients general health, functional status, and cognitive changes in the months leading up to the current hospitalization * Patient/family understanding of the current medical problems * Patient/family understanding of prognosis * Patients goals of care as best understood from advance directives and/or conversations and/or values * Current medical treatment options and benefits/burdens of those options * Likely scenarios comparing ongoing aggressive care with a transition to comfort measures only * Questions answered to the best of my ability * Introduced hospice philosophy and benefits * Palliative care contact information provided Assessment and Plan Disease Oriented Problem List: (1) Transitional cell carcinoma of ureter (2) Breast CA (3) Febrile neutropenia (4) UTI (urinary tract infection) (5) Depression (6) Irritable bowel syndrome Symptom Scale: (1) Pain Comment: Complaining of pain to right knee. NM bone scan revealed multifocal high of increased radiotracer activity suggestive of metastatic disease involving right distal humerus, right clavicle, right scapula, bilateral distal femur, and right posterior ribs. Patient currently undergoing chemotherapy. . (2) Generalized weakness 0-10 Scale: Unable to quantify Comment: Patient is currently undergoing chemotherapy and has low hemoglobin . (3) Debility 0-10 Scale: Unable to quantify Comment: Progressive . Pertinent Non-Medical Issues Psychosocial:Patient was born and raised in [place], [place]. She moved to [place] in May of 1984. Patient is to a of 46 years. Patient has worked for [employer] in the [employer] Department. 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 She has 1 grandson. Patient enjoys boating and camping with her family. Spiritual: Patient is Adventist-she has a local friend who visits and is a Sack Keeper. Legal: Patient is completed a living will- will bring copy from home Ethical issues impacting care: None identified at this time . Important Contacts Spouse-Damian Castro -[phone] (home)/[phone](other) Daughter-Matthew Clarke-[phone] . 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 Patient presented to the ER by ambulance on 07/11/17 complaining of generalized malaise and fever with a temperature of 101F. Patient is currently on chemotherapy for breast cancer and she follows at [facility]. Clinical course complicated with possible metastatic disease to bone, urinary tract infection, and febrile neutropenia. Given ongoing comorbidities patient remains at high risk for further complications, deterioration and decline. . Code Status: No Code Plan PLAN: Legal decision maker: Patient is currently able to participate in medical decision making. In the event that patient is incapacitated, she has designated her Damian Castro as her healthcare surrogate and her daughter Tricia Castro as her alternate healthcare surrogate. Goals: Aggressive short of no code CODE STATUS: No code DNR/DNI Patient appears to have insight regarding her medical condition. Obtained psychosocial, past medical history and events leading to this hospitalization. Per and patient, patient started presenting with symptoms after she came back from [place] where she had a bone scan done. Patient's Matthew Salgado was able to pull up patient`s portal results for the NM bone scan through his cell phone from [facility] and they have just received the results from the NM bone scan that patient had on 07/11. Patient had NM bone scan on prior to coming to the ER and it revealed multiple foci of increased radiotracer activity, suggestive of metastatic disease. Increased radiotracer activity involving the right distal humerus, right clavicle, right scapula, and bilateral distal femur. Multiple foci of increased radiotracer seen in the right posterior ribs. Requested to print out results and bring copy for the medical team to see. Addressed code status, discussed limitations and benefits of CPR given ongoing comorbidities. Patient elected to be a DNR/DNI with the support of her . Patient does not want to be "connected to any machines". Patient verbalized that she would not want to suffer. She has a living will and she mentioned that her Matthew Salgado is her healthcare surrogate and her alternate healthcare surrogate is her daughter Tricia Castro. Patient's will bring in copies to the hospital. Introduced hospice philosophy and benefits. At this time patient would want to continue with aggressive treatment and she would also want to speak to her oncologist from [facility] Dr. Cordoba prior to making any decision to transition to comfort care. She feels that if her oncologist from [facility] Dr. Cordoba advices her to continue with chemotherapy or offers any other treatment, she will most likely give it a try. SYMPTOMS: * Pain: Patient complaining of pain to right knee. NM bone scan revealed multifocal high of increased radiotracer activity suggestive of metastatic disease involving right distal humerus, right clavicle, right scapula, bilateral distal femur, and right posterior ribs. Patient currently undergoing chemotherapy. Patient his hydrocodone/acetaminophen 5/325 q 4 hrs prn. Patient also his morphine sulfate 2 mg q 3 hrs prn. Patient sparingly needing prn. * Generalized weakness: Anemia secondary to chemotherapy. Hemoglobin 9.3 on admission, trending down. Hgb 7.8 today. Continue to monitor hemoglobin. * Debility: Progressive. 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 Patient currently using a rolling walker. Patient may benefit from physical therapy if goals remain aggressive. Palliative care will continue to follow the patient during hospital course as condition evolves, to assist patient/decision-maker with understanding of their medical conditions, weighing benefits/burdens of treatment options, for clarification of goals of treatment. Additionally will assist with any symptoms of palliative concern Thank you for the opportunity to participate in the care of Ms. Castro. Attestation To help prompt me to consider important information that might be impacting today's encounter and assessment, information from prior notes written by myself or my colleagues may have been "brought forward" into today's note. My signature on this note, however, is an attestation that I personally performed the exam, history, and/or decision-making noted today, and, unless otherwise indicated, the interactions with patient, family, and staff as well as the review of records all occurred today. I also attest that the listed assessment and stated plan reflect my best clinical judgment today based on the combination of historical information, prior notes, and today's exam/ interactions. When time spent is documented, it refers only to time spent today by the signer, or if indicated, combined time spent today by collaborating physician/nurse practitioner. Feliberto Freeman Jul 14, 2017 11:05
[2017-07-14] MEDS ORDERED: PHARMACY ORDERED LAB ONE (11:45)
--- NOTE | 2017-07-14 17:52 | HHI.PR ---
Subjective Remarks Patient states she feels very cold. Currently denies any pain. Denies any nausea vomiting, chest pain shortness of breath. Objective Vitals Vital Signs Date Time Temp Pulse Resp B/P (MAP) Pulse Ox O2 Delivery O2 Flow Rate FiO2 07/14/17 16:13 99.6 96 18 123/60 (81) 98 07/14/17 12:00 97 07/14/17 11:31 98.4 102 18 119/68 (85) 95 07/14/17 09:12 99.0 89 18 122/59 (80) 96 07/14/17 08:00 97 07/14/17 06:22 16 07/14/17 05:12 99.9 81 16 130/66 (87) 99 07/14/17 04:04 85 07/14/17 00:08 80 07/14/17 00:07 98.5 78 16 111/57 (75) 94 07/13/17 20:36 102.3 90 16 127/77 (94) 96 07/13/17 20:20 16 07/13/17 20:02 89 I/O 07/13/17 07/13/17 07/13/17 07/14/17 07/14/17 07/14/17 06:59 14:59 22:59 06:59 14:59 22:59 Intake Total 1100 ml 480 ml 360 ml Output Total 550 ml 1300 ml 2000 ml Balance 550 ml -820 ml -1640 ml Intake Oral 480 ml 360 ml IV Total 1100 ml Output Urine Total 550 ml 1300 ml 2000 ml Result Diagram: 07/14/17 0515 07/13/17 0815 Imaging Last Impressions Chest X-Ray 07/12/17 0000 Signed Impressions: Service Date/Time: Wednesday, July 12, 2017 01:19 - CONCLUSION: The lungs are clear. Eleazar Mora MD Objective Remarks GENERAL: Awake and alert. Sitting up on side of bed. at bedside. SKIN: + Erythematous macular rash over right anterior chest wall/shoulder superior to infuse a port placement, CARDIOVASCULAR: Regular rate and rhythm. No obvious murmurs to auscultation. RESPIRATORY: No wheezing. Clear to auscultation. Breath sounds equal bilaterally. GASTROINTESTINAL: Abdomen soft, non-tender, nondistended. BS normal. GENITOURINARY: Herrera catheter in place with clear yellow urine in the bag. MUSCULOSKELETAL: Extremities without edema. No obvious deformities. A/P Problem List: (1) Fever ICD Code: R50.9 - Fever, unspecified (2) UTI (urinary tract infection) ICD Code: N39.0 - Urinary tract infection, site not specified (3) Breast CA ICD Code: C50.919 - Malignant neoplasm of unspecified site of unspecified female breast Assessment and Plan 71-year-old female with a PMH of HTN, Hyperlipidemia, Depression, IBS and Breast CA on Chemo who presented to the ER with complaints of generalized malaise and fever. Neutropenic fever +immunocompromised on chemotherapy White count dropped to 2.1 this am. Tmax 102.9 overnight CXR w/no acute findings. Blood cultures with no growth x 2 day. Flu antigen neg.Legionella and pneumococcal antigen negative. Urine culture growing Pseudomonas Oncology following. Appreciate assistance. Currently on vancomycin, aztreonam , and Levaquin per IDs recommendations Repeat blood cultures thus far negative. Continue to monitor for fevers. Continue IV hydration Anemia, secondary to chemotherapy Thrombocytopenia Hgb dropped from 9.3 to 7.8 No signs of active bleeding -Hold Heparin -Monitor H&H -INR was 1.1 -Monitor for any evidence of bleeding ?early cellulitis right anterior chest just superior to Infuse a Port site -ID following. Pseudomonal UTI: UA with mod leukocytes, 7 WBCs, occ bacteria. Patient has chronic indwelling herrera. Denies any c/o abdominal pain. Urine culture positive for Pseudomonas. Continue antibiotics Right ureter CA, s/p open right nephroureterectomy with excision of bladder cuff : chronic indwelling herrera. Follows with Dr. Lopez. Has appt Friday to have herrera changed. Difficult Herrera exchange per patient report, only has one nurse at Dr. Lopez's office who is able to do Breast CA s/p mastectomy: follows at [facility], currently on chemotherapy, outpatient follow up at [facility] as scheduled to resume treatment. -Continue pain management -Continue with PT/OT -Consult palliative care-I did speak with palliative care and patient would like to be a DNR CKD Creatinine appears to near baseline. Monitor. Avoid nephrotoxic agent Hx of DM: not on any diabetic meds HgbA1c 5.3 -accucheks and ISS Constipation, no BM in 4 days -Pericolace BID -Discontinue Miralax daily, patient states it upsets her stomach -MOM now. Dulcolax suppository if needed. Patient states she had a BM today DVT Prophylaxis: SCD Discharge Planning Continue to monitor for fevers. Continue IV antibiotics. Appreciate assistance from ID and oncology Paula Dickerson MD Jul 14, 2017 17:52
[2017-07-14] MEDS ORDERED: MORPHINE SULFATE 4 MG/ML INJ IV PUSH PRN (20:30)
[2017-07-14] MEDS ORDERED: AMIODARONE INJ 150 MG in DEXTROSE 5% IN WATER 100ML INJ 97 ML IV ONE ×2 (22:27)
[2017-07-14] MEDS ORDERED: AMIODARONE INJ 450 MG in SODIUM CHLOR 0.9% (EXCEL) INJ 250 ML IV PRN (22:37)
[2017-07-15] VITALS (15 sets, daily range): BP systolic 92–121; BP diastolic 52–81; PULSE 83–102; RESP 16–20; TEMP 98–99.8; O2SAT 94–100
[2017-07-15] MEDS: AZTREONAM INJ 2,000 MG in SODIUM CHLORIDE 0.9% INJ 100 ML IV SCH ×3 (04:42→17:17)
--- NOTE | 2017-07-15 05:03 | EKG ---
Date Performed: 07/14/2017 Time Performed: 22:10:22 PTAGE: 71 years EKG: Atrial fibrillation with rapid ventricular response and Normal Sinus rhythm Inferior ST-T changes are nonspecific Abnormal ECG Compared to prior electrocardiogram, Paroxysmal a trial fibrillation is now present. PREVIOUS TRACING : 08/17/2015 07.35 DOCTOR: Sina Restrepo Interpretating Date/Time 07/15/2017 05:02:30
[2017-07-15 05:25] LABS: HEMOGLOBIN 7.2 GM/DL (11.6-15.3); MEAN CELL VOLUME 84.9 FL (80.0-100.0); MEAN CORPUSCULAR HEMOGLOBIN 29.7 PG (27.0-34.0); MEAN PLATELET VOLUME 6.2 FL (7.0-11.0); PLATELET COUNT 83 TH/MM3 (150-450); RED BLOOD COUNT 2.41 MIL/MM3 (4.00-5.30); RED CELL DISTRIBUTION WIDTH 14.3 % (11.6-17.2); WHITE BLOOD COUNT 2.2 TH/MM3 (4.0-11.0)
[2017-07-15 05:38] LABS: HEMATOCRIT 20.4 % (35.0-46.0)
[2017-07-15 05:53] LABS: ALBUMIN 1.6 GM/DL (3.4-5.0); ALT (GPT) 14 U/L (10-53); AST (GOT) 22 U/L (15-37); BICARBONATE 22.8 MEQ/L (21.0-32.0); BLOOD UREA NITROGEN 9 MG/DL (7-18); CALCIUM 7.7 MG/DL (8.5-10.1); CHLORIDE 108 MEQ/L (98-107); GLOMERULAR FILTRATION RATE 82 ML/MIN (>89); GLUCOSE,RANDOM 102 MG/DL (74-106); SODIUM (NA) 138 MEQ/L (136-145)
[2017-07-15 05:55] LABS: ALKALINE PHOSPHATASE 105 U/L (45-117); TOTAL BILIRUBIN ADULT 0.4 MG/DL (0.2-1.0); TOTAL PROTEIN 5.1 GM/DL (6.4-8.2)
[2017-07-15] MEDS: SODIUM CHLORIDE 0.9% FLUSH 10 ML FLUSH IV FLUSH SCH ×2 (07:17→21:00)
[2017-07-15] MEDS: LEVOFLOXACIN 750 MG TAB PO SCH (07:34)
[2017-07-15] MEDS: ACETAMINOPHEN/HYDROcodone 325 MG/5 MG TAB PO PRN ×4 (07:34→21:34)
[2017-07-15] MEDS: MULTIVITAMIN TAB PO SCH (07:35)
[2017-07-15] MEDS: HYDROCORTISONE 1% CREAM 30 GM TOPICAL SCH ×2 (07:35→21:00)
[2017-07-15] MEDS: DOCUSATE SODIUM 50 MG/SENNA 8.6 MG TAB PO SCH ×2 (07:35→21:00)
[2017-07-15] MEDS: FLUTICASONE PROPIONATE 50 MCG/ACT 16 GM NASAL SPRAY EACH NARE SCH (07:35)
[2017-07-15] MEDS: PETROLATUM 49%/ZINC OXIDE 15% 4 OUNCE TUBE TOPICAL SCH (07:36)
[2017-07-15] MEDS: ONDANSETRON HCL 4 MG/2 ML VIAL IVP PRN ×4 (07:38→21:33)
[2017-07-15 08:34] LABS: LYMPHOCYTES 21 % (9-44); MONOCYTES 13 % (0-8); NEUTROPHIL # MANUAL DIFF 1.3 TH/MM3 (1.8-7.7); POLYS (SEG NEUTROPHILS) 61 % (16-70)
[2017-07-15 08:35] LABS: DOHLE BODIES PRESENT (NONE SEEN)
--- NOTE | 2017-07-15 11:45 | HHI.HCPN ---
Reason for visit a. To assist with evaluation and management of symptoms including:Pain, nausea, generalized weakness, debility b. To assist medical decision maker(s) with: better understanding of current medical conditions; weighing benefits/burdens of medical treatment options; making medical treatment decisions. Subjective/Interval History Follow up medically necessary for symptom management and further clarification of goals of care. Patient seen and examined in the room. She is awake, alert, oriented to self, place, and situation. Patient`s daughter Josefina who is her healthcare surrogate is at bedside. Patient endorsing pain to right wrist, reports that she received pain medication from bedside RN. Pain managed with hydrocodone/acetaminophen 5/325 q 4 hrs prn. Patient required 3 as needed doses in the past 24 hours. Morphine sulfate discontinued 07/14. Denies nausea. Nausea managed with ondansetron 4 mg every 6 hrs prn. Patient required 3 as needed doses in the past 24 hours. Laboratory workup today revealing WBC 2.2, hemoglobin 7.2, hematocrit 20.4, platelet count 83, potassium 3.4, BUN/creatinine 9/0.70, calcium 7.7, total protein 5.1, albumin 1.6. No recent imaging. Reminded patient to request her to bring a copy of her NM bone scan for medical team to review. Also requested patient's daughter to remind patient's to bring in a copy of patient's living will. Patient signed community DNR today in the presence of her daughter. Signed [facility] DNR placed on chart. Daughter is supportive of patient's decision. Case discussed with bedside RN. . Family/friend interactions Patient's daughter Josefina at bedside . Advance Directives Living Will: Completed, but not made available Advance Directive Specifics Health Care Surrogate(s): [facility]- Spouse- Damian Castro- [phone] (home)/[phone](cell) Alternate ZDS-cntzsrxm-Yftpi-Ann, Ncscwwy-[phone] . Objective Vital Signs Date Time Temp Pulse Resp B/P (MAP) Pulse Ox O2 Delivery O2 Flow Rate FiO2 07/15/17 08:53 16 07/15/17 07:27 99.8 95 16 117/58 (77) 94 07/15/17 07:13 95 07/15/17 04:00 98.9 83 20 109/60 (76) 100 5/1/18 04:00 90 07/15/17 00:00 89 07/15/17 00:00 98.3 93 18 92/57 (69) 95 07/14/17 20:00 100.2 120 18 120/63 (82) 91 07/14/17 20:00 136 07/14/17 16:13 99.6 96 18 123/60 (81) 98 07/14/17 16:00 93 07/14/17 12:00 97 07/14/17 11:31 98.4 102 18 119/68 (85) 95 Intake & Output 07/15/17 07/15/17 07:00 19:00 Intake Total 1080 ml Output Total 2750 ml Balance -1670 ml Intake Oral 1080 ml Output Urine Total 2750 ml # Bowel Movements 1 Physical Exam CONSTITUTIONAL/GENERAL: This is an adequately nourished patient, in no apparent distress. TUBES/LINES/DRAINS: [id number] right chest wall, Germain catheter, SCDs SKIN: Erythematous rash to right chest wall and upper back. Ecchymoses on upper extremities. No wounds seen anteriorly. Not diaphoretic. HEAD: Atraumatic. Normocephalic. EYES: Pupils equal and round and reactive. Extraocular motions intact. No scleral icterus. No injection or drainage. Fundi not examined. ENT: Hearing grossly normal. Nose without bleeding or purulent drainage. Moist oral mucosa NECK: Trachea midline. Supple, nontender. CARDIOVASCULAR: S1, S2 normal; no murmurs, gallops, or rubs. No JVD. Peripheral pulses symmetric. RESPIRATORY/CHEST: Symmetric, unlabored respirations. Diminished in the bases. No wheezes, rales, or rhonchi. GASTROINTESTINAL: Abdomen soft, non-tender, nondistended. No guarding. Bowel sounds present. GENITOURINARY: Without palpable bladder distension. Germain catheter in place. MUSCULOSKELETAL: Extremities without clubbing, cyanosis, or edema. No calf tenderness. No mottling or clubbing. NEUROLOGICAL: Awake and alert. Motor and sensory grossly within normal limits. Follows commands. Cognitively sharp. Moves all extremities. PSYCHIATRIC: No obvious anxiety/depression. no apparent hallucinations or other psychotic thought process. Diagnostic Tests Laboratory Laboratory Tests Test 07/12/17 13:12 07/12/17 18:26 07/13/17 08:15 07/13/17 12:05 Hemoglobin A1c 5.3 % (4.3-6.0) Vitamin B12 Level 979 PG/ML (193-986) Thyroid Stimulating Hormone 3rd Gen 1.000 uIU/ML (0.358-3.740) White Blood Count 2.0 TH/MM3 (4.0-11.0) Red Blood Count 2.60 MIL/MM3 (4.00-5.30) Hemoglobin 7.7 GM/DL (11.6-15.3) 8.2 GM/DL (11.6-15.3) Hematocrit 22.1 % (35.0-46.0) 23.8 % (35.0-46.0) Mean Corpuscular Volume 85.1 FL (80.0-100.0) Mean Corpuscular Hemoglobin 29.7 PG (27.0-34.0) Mean Corpuscular Hemoglobin Concent 34.9 % (32.0-36.0) Red Cell Distribution Width 14.5 % (11.6-17.2) Platelet Count 139 TH/MM3 (150-450) Mean Platelet Volume 6.0 FL (7.0-11.0) Neutrophils (%) (Auto) 59.0 % (16.0-70.0) Lymphocytes (%) (Auto) 30.5 % (9.0-44.0) Monocytes (%) (Auto) 6.2 % (0.0-8.0) Eosinophils (%) (Auto) 4.0 % (0.0-4.0) Basophils (%) (Auto) 0.3 % (0.0-2.0) Neutrophils # (Auto) 1.2 TH/MM3 (1.8-7.7) Lymphocytes # (Auto) 0.6 TH/MM3 (1.0-4.8) Monocytes # (Auto) 0.1 TH/MM3 (0-0.9) Eosinophils # (Auto) 0.1 TH/MM3 (0-0.4) Basophils # (Auto) 0.0 TH/MM3 (0-0.2) CBC Comment AUTO DIFF Differential Comment AUTO DIFF CONFIRMED Blood Urea Nitrogen 11 MG/DL (7-18) Creatinine 0.74 MG/DL (0.50-1.00) Random Glucose 106 MG/DL (74-106) Total Protein 5.7 GM/DL (6.4-8.2) Albumin 1.9 GM/DL (3.4-5.0) Calcium Level 8.2 MG/DL (8.5-10.1) Alkaline Phosphatase 90 U/L (45-117) Aspartate Amino Transf (AST/SGOT) 15 U/L (15-37) Alanine Aminotransferase (ALT/SGPT) 11 U/L (10-53) Total Bilirubin 0.6 MG/DL (0.2-1.0) Sodium Level 136 MEQ/L (136-145) Potassium Level 3.7 MEQ/L (3.5-5.1) Chloride Level 105 MEQ/L (98-107) Carbon Dioxide Level 24.0 MEQ/L (21.0-32.0) Anion Gap 7 MEQ/L (5-15) Estimat Glomerular Filtration Rate 77 ML/MIN (>89) Test 07/13/17 13:21 07/13/17 19:28 07/14/17 00:18 07/14/17 05:15 Prothrombin Time 11.4 SEC (9.8-11.6) Prothromb Time International Ratio 1.1 RATIO Hemoglobin 7.8 GM/DL (11.6-15.3) 7.5 GM/DL (11.6-15.3) 7.8 GM/DL (11.6-15.3) Hematocrit 23.1 % (35.0-46.0) 21.6 % (35.0-46.0) 22.4 % (35.0-46.0) White Blood Count 2.1 TH/MM3 (4.0-11.0) Red Blood Count 2.64 MIL/MM3 (4.00-5.30) Mean Corpuscular Volume 84.8 FL (80.0-100.0) Mean Corpuscular Hemoglobin 29.6 PG (27.0-34.0) Mean Corpuscular Hemoglobin Concent 34.9 % (32.0-36.0) Red Cell Distribution Width 14.5 % (11.6-17.2) Platelet Count 113 TH/MM3 (150-450) Mean Platelet Volume 5.8 FL (7.0-11.0) CBC Comment AUTO DIFF Differential Total Cells Counted 100 Neutrophils % (Manual) 64 % (16-70) Lymphocytes % 29 % (9-44) Monocytes % 5 % (0-8) Eosinophils % 1 % (0-4) Neutrophils # (Manual) 1.4 TH/MM3 (1.8-7.7) Metamyelocytes 1 % (0-1) Differential Comment FINAL DIFF MANUAL Platelet Estimate LOW (NORMAL) Platelet Morphology Comment NORMAL (NORMAL) Red Cell Morphology Comment NORMAL (NORMAL) Test 07/14/17 11:35 07/15/17 04:50 Vancomycin Level Trough 15.9 MCG/ML (5.0-10.0) White Blood Count 2.2 TH/MM3 (4.0-11.0) Red Blood Count 2.41 MIL/MM3 (4.00-5.30) Hemoglobin 7.2 GM/DL (11.6-15.3) Hematocrit 20.4 % (35.0-46.0) Mean Corpuscular Volume 84.9 FL (80.0-100.0) Mean Corpuscular Hemoglobin 29.7 PG (27.0-34.0) Mean Corpuscular Hemoglobin Concent 35.0 % (32.0-36.0) Red Cell Distribution Width 14.3 % (11.6-17.2) Platelet Count 83 TH/MM3 (150-450) Mean Platelet Volume 6.2 FL (7.0-11.0) CBC Comment AUTO DIFF Differential Total Cells Counted 100 Neutrophils % (Manual) 61 % (16-70) Lymphocytes % 21 % (9-44) Monocytes % 13 % (0-8) Eosinophils % 5 % (0-4) Neutrophils # (Manual) 1.3 TH/MM3 (1.8-7.7) Differential Comment FINAL DIFF MANUAL Dohle Bodies PRESENT (NONE SEEN) Platelet Estimate LOW (NORMAL) Platelet Morphology Comment NORMAL (NORMAL) Red Cell Morphology Comment NORMAL (NORMAL) Blood Urea Nitrogen 9 MG/DL (7-18) Creatinine 0.70 MG/DL (0.50-1.00) Random Glucose 102 MG/DL (74-106) Total Protein 5.1 GM/DL (6.4-8.2) Albumin 1.6 GM/DL (3.4-5.0) Calcium Level 7.7 MG/DL (8.5-10.1) Alkaline Phosphatase 105 U/L (45-117) Aspartate Amino Transf (AST/SGOT) 22 U/L (15-37) Alanine Aminotransferase (ALT/SGPT) 14 U/L (10-53) Total Bilirubin 0.4 MG/DL (0.2-1.0) Sodium Level 138 MEQ/L (136-145) Potassium Level 3.4 MEQ/L (3.5-5.1) Chloride Level 108 MEQ/L (98-107) Carbon Dioxide Level 22.8 MEQ/L (21.0-32.0) Anion Gap 7 MEQ/L (5-15) Estimat Glomerular Filtration Rate 82 ML/MIN (>89) Result Diagram: 07/15/17 0450 07/15/17 0450 Microbiology Microbiology Date/Time Source Procedure Growth Status 07/13/17 10:37 Blood Peripheral Aerobic Blood Culture - Preliminary NO GROWTH IN 2 DAYS Resulted 07/13/17 10:37 Blood Peripheral Anaerobic Blood Culture - Preliminary NO GROWTH IN 2 DAYS Resulted 07/13/17 10:30 Blood Peripheral Aerobic Blood Culture - Preliminary NO GROWTH IN 2 DAYS Resulted 07/13/17 10:30 Blood Peripheral Anaerobic Blood Culture - Preliminary NO GROWTH IN 2 DAYS Resulted 07/12/17 16:35 Nasal Aspirate Influenza Types A,B Antigen (YANCY) - Final NEGATIVE FOR FLU A AND B ANTIGEN.... Complete 07/12/17 11:50 Urine Catheterized Urine Legionella Antigen - Final PRESUMPTIVE NEGATIVE FOR LEGIONELLA P... Complete 07/12/17 11:50 Urine Catheterized Urine Streptococcus pneumoniae Antigen (M - Final PRESUMPTIVE NEGATIVE FOR STREPTOCOCCU... Complete 07/12/17 11:50 Urine Clean Catch Urine Culture - Final Pseudomonas Aeruginosa Complete Assessment and Plan Disease Oriented Problem List: (1) Transitional cell carcinoma of ureter (2) Breast CA (3) Febrile neutropenia (4) UTI (urinary tract infection) (5) Depression (6) Irritable bowel syndrome Symptom Scale: (1) Pain Comment: Complaining of pain to right knee. NM bone scan revealed multifocal high of increased radiotracer activity suggestive of metastatic disease involving right distal humerus, right clavicle, right scapula, bilateral distal femur, and right posterior ribs. Patient currently undergoing chemotherapy. . (2) Generalized weakness 0-10 Scale: Unable to quantify Comment: Patient is currently undergoing chemotherapy and has low hemoglobin . (3) Nausea 0-10 Scale: Unable to quantify Comment: Patient currently on chemotherapy, and is been complaining of nausea. . (4) Debility 0-10 Scale: Unable to quantify Comment: Progressive . Pertinent Non-Medical Issues Psychosocial:Patient was born and raised in [place], [place]. She moved to [place] in May of 1984. Patient is to a of 46 years. 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 She has 1 grandson. Patient enjoys boating and camping with her family. Spiritual: Patient is Orthodox-she has a local friend who visits and is a Electrical Design Technologist. Legal: Patient is completed a living will- will bring copy from home Ethical issues impacting care: None identified at this time . Important Contacts Spouse-Damian Castro -[phone] (home)/[phone](other) Daughter-Matthew Clarke-[phone] . 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 Patient presented to the ER by ambulance on 07/11/17 complaining of generalized malaise and fever with a temperature of 101F. Patient is currently on chemotherapy for breast cancer and she follows at [facility]. Clinical course complicated with possible metastatic disease to bone, urinary tract infection, and febrile neutropenia. Given ongoing comorbidities patient remains at high risk for further complications, deterioration and decline. . Code Status: No Code Plan PLAN: Legal decision maker: Patient is currently able to participate in medical decision making. In the event that patient is incapacitated, she has designated her Damian Castro as her healthcare surrogate and her daughter Tricia Castro as her alternate healthcare surrogate. Goals: Aggressive short of no code CODE STATUS: No code DNR/DNI Patient signed community DNR today in the presence of her daughter. Daughter is supportive of patient's decision. Reminded patient to request her to bring a copy of her NM bone scan for medical team to review. Also requested patient's daughter to remind patient's to bring in a copy of patient's living will. SYMPTOMS: * Pain: Patient complaining of pain to right knee. NM bone scan revealed multifocal high of increased radiotracer activity suggestive of metastatic disease involving right distal humerus, right clavicle, right scapula, bilateral distal femur, and right posterior ribs. Patient currently undergoing chemotherapy. Patient his hydrocodone/acetaminophen 5/325 q 4 hrs prn. Pain managed with hydrocodone/acetaminophen 5/325 q 4 hrs prn. Patient required 3 as needed doses in the past 24 hours. Morphine sulfate discontinued 07/14. Patient sparingly needing prn. 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 Complaining of nausea. Nausea managed with ondansetron 4 mg every 6 hrs prn. Patient required 3 as needed doses in the past 24 hours. Currently denies nausea, patient reports that she was able to eat most of her breakfast today. * Generalized weakness: Anemia secondary to chemotherapy. Hemoglobin 9.3 on admission, trending down. Hgb 7.8 today. Continue to monitor hemoglobin. * Debility: Progressive. 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 Patient currently using a rolling walker. Patient may benefit from physical therapy if goals remain aggressive. Palliative care will continue to follow the patient during hospital course as condition evolves, to assist patient/decision-maker with understanding of their medical conditions, weighing benefits/burdens of treatment options, for clarification of goals of treatment. Additionally will assist with any symptoms of palliative concern Attestation To help prompt me to consider important information that might be impacting today's encounter and assessment, information from prior notes written by myself or my colleagues may have been "brought forward" into today's note. My signature on this note, however, is an attestation that I personally performed the exam, history, and/or decision-making noted today, and, unless otherwise indicated, the interactions with patient, family, and staff as well as the review of records all occurred today. I also attest that the listed assessment and stated plan reflect my best clinical judgment today based on the combination of historical information, prior notes, and today's exam/ interactions. When time spent is documented, it refers only to time spent today by the signer, or if indicated, combined time spent today by collaborating physician/nurse practitioner. Feliberto Freeman July 15, 2017 11:45
[2017-07-15] MEDS: VANCOMYCIN INJ 1,250 MG in SODIUM CHLOR 0.9% 250 ML INJ 250 ML IV SCH (12:01)
[2017-07-15] MEDS: SODIUM CHLOR 0.9% 1000 ML INJ 1,000 ML IV SCH ×2 (13:16→21:00)
--- NOTE | 2017-07-15 16:18 | HHI.PR ---
Subjective Remarks Patient feels okay. She does have pain in her arm on the right however it gets better with pain medication and when she keeps it warm. She does not want any warm compresses at this time. Gets nausea on and off but currently controlled. Denies any chills Objective Vitals Vital Signs Date Time Temp Pulse Resp B/P (MAP) Pulse Ox O2 Delivery O2 Flow Rate FiO2 07/15/17 15:55 90 07/15/17 15:50 90 07/15/17 12:07 98.4 102 18 115/52 (73) 95 07/15/17 12:00 87 07/15/17 08:53 16 07/15/17 07:27 99.8 95 16 117/58 (77) 94 07/15/17 07:13 95 07/15/17 04:00 98.9 83 20 109/60 (76) 100 07/15/17 04:00 90 07/15/17 00:00 89 07/15/17 00:00 98.3 93 18 92/57 (69) 95 07/14/17 20:00 100.2 120 18 120/63 (82) 91 07/14/17 20:00 136 I/O 07/14/17 07/14/17 07/14/17 07/15/17 07/15/17 07/15/17 07:00 15:00 23:00 07:00 15:00 23:00 Intake Total 360 ml 600 ml 480 ml Output Total 2000 ml 600 ml 2150 ml 900 ml Balance -1640 ml 0 ml -1670 ml -900 ml Intake Oral 360 ml 600 ml 480 ml Output Urine Total 2000 ml 600 ml 2150 ml 900 ml # Bowel Movements 1 Result Diagram: 07/15/17 0450 07/15/17 0450 Imaging Last Impressions Chest X-Ray 07/12/17 0000 Signed Impressions: Service Date/Time: Wednesday, July 12, 2017 01:19 - CONCLUSION: The lungs are clear. Eleazar Mora MD Objective Remarks GENERAL: Awake and alert. Laying in bed. Family at bedside SKIN: + Erythematous macular rash over right anterior chest wall/shoulder superior to infuse a port placement, CARDIOVASCULAR: Regular rate and rhythm. No obvious murmurs to auscultation. RESPIRATORY: No wheezing. Clear to auscultation. Breath sounds equal bilaterally. GASTROINTESTINAL: Abdomen soft, non-tender, nondistended. BS normal. A/P Problem List: (1) Fever ICD Code: R50.9 - Fever, unspecified (2) UTI (urinary tract infection) ICD Code: N39.0 - Urinary tract infection, site not specified (3) Breast CA ICD Code: C50.919 - Malignant neoplasm of unspecified site of unspecified female breast Assessment and Plan 71-year-old female with a PMH of HTN, Hyperlipidemia, Depression, IBS and Breast CA on Chemo who presented to the ER with complaints of generalized malaise and fever. Neutropenic fever +immunocompromised on chemotherapy White count 2.2 today. Tmax 100.2 overnight CXR w/no acute findings. Blood cultures with no growth x 4 days. Flu antigen neg.Legionella and pneumococcal antigen negative. Urine culture growing Pseudomonas Oncology following. Appreciate assistance. Currently on vancomycin, aztreonam , and Levaquin per IDs recommendations Repeat blood cultures negative first Friday. Continue to monitor for fevers. Continue IV hydration Anemia, secondary to chemotherapy Thrombocytopenia Hgb dropped from 9.3 to 7.2 No signs of active bleeding -Hold Heparin -Monitor H&H -INR was 1.1 -Monitor for any evidence of bleeding Rash noted over anterior chest -ID following. Pseudomonal UTI: UA with mod leukocytes, 7 WBCs, occ bacteria. Patient has chronic indwelling herrera. Denies any c/o abdominal pain. Urine culture positive for Pseudomonas. Continue antibiotics Right ureter CA, s/p open right nephroureterectomy with excision of bladder cuff : chronic indwelling herrera. Follows with Dr. Lopez. Has appt Friday to have herrera changed. Difficult Herrera exchange per patient report, only has one nurse at Dr. Lopez's office who is able to do Breast CA s/p mastectomy: follows at [facility], currently on chemotherapy, outpatient follow up at [facility] as scheduled to resume treatment. -Continue pain management -Continue with PT/OT -Consult palliative care-I did speak with palliative care and patient would like to be a DNR CKD Creatinine appears to near baseline. Monitor. Avoid nephrotoxic agent Hx of DM: not on any diabetic meds HgbA1c 5.3 -accucheks and ISS Constipation, no BM in 4 days -Pericolace BID -Discontinue Miralax daily, patient states it upsets her stomach -MOM now. Dulcolax suppository if needed. Patient states she had a BM yesterday DVT Prophylaxis: SCD Discharge Planning Continue to monitor for fevers. Continue IV antibiotics. Appreciate assistance from ID and oncology Awaiting final recommendations from both ID and oncology. Paula Dickerson MD July 15, 2017 16:18
[2017-07-15] MEDS ORDERED: POTASSIUM CHLORIDE 20 MEQ CONTROLLED RELEASE TAB PO ONE (16:30)
[2017-07-15] MEDS: diphenhydrAMINE HCL 25 MG CAP PO PRN (17:40)
[2017-07-16] VITALS (20 sets, daily range): BP systolic 100–165; BP diastolic 57–80; PULSE 76–97; RESP 16–18; TEMP 97.8–100.4; O2SAT 96–99
[2017-07-16] MEDS: VANCOMYCIN INJ 1,250 MG in SODIUM CHLOR 0.9% 250 ML INJ 250 ML IV SCH ×2 (00:08→11:37)
[2017-07-16] MEDS: ACETAMINOPHEN 325 MG TAB PO PRN ×2 (00:15→17:49)
[2017-07-16] MEDS: AZTREONAM INJ 2,000 MG in SODIUM CHLORIDE 0.9% INJ 100 ML IV SCH ×2 (01:20→09:02)
[2017-07-16] MEDS: SODIUM CHLOR 0.9% 1000 ML INJ 1,000 ML IV SCH ×2 (05:17→17:49)
[2017-07-16] MEDS: ACETAMINOPHEN/HYDROcodone 325 MG/5 MG TAB PO PRN ×4 (05:25→17:50)
[2017-07-16] MEDS: ONDANSETRON HCL 4 MG/2 ML VIAL IVP PRN ×5 (05:26→21:31)
[2017-07-16 06:20] LABS: AUTOMATED NEUTROPHIL # 1.1 TH/MM3 (1.8-7.7); BASOPHIL % 0.1 % (0.0-2.0); EOSINOPHIL # 0.2 TH/MM3 (0-0.4); EOSINOPHIL % 7.7 % (0.0-4.0); LYMPH % 23.3 % (9.0-44.0); LYMPHOCYTE # 0.5 TH/MM3 (1.0-4.8); MEAN CELL VOLUME 85.4 FL (80.0-100.0); MEAN CORPUSCULAR HEMOGLOBIN 29.4 PG (27.0-34.0); MEAN CORPUSCULAR HGB CONC 34.4 % (32.0-36.0); MEAN PLATELET VOLUME 6.7 FL (7.0-11.0); MONO % 17.6 % (0.0-8.0); MONOCYTE # 0.4 TH/MM3 (0-0.9); NEUT % 51.3 % (16.0-70.0); PLATELET COUNT 62 TH/MM3 (150-450); RED BLOOD COUNT 2.35 MIL/MM3 (4.00-5.30); RED CELL DISTRIBUTION WIDTH 14.3 % (11.6-17.2); WHITE BLOOD COUNT 2.1 TH/MM3 (4.0-11.0)
[2017-07-16 06:26] LABS: HEMOGLOBIN 6.9 GM/DL (11.6-15.3)
[2017-07-16 06:50] LABS: BICARBONATE 23.9 MEQ/L (21.0-32.0); CALCIUM 7.8 MG/DL (8.5-10.1); CREATININE 0.71 MG/DL (0.50-1.00)
[2017-07-16 08:37] LABS: BANDS 3 % (0-6); BLASTS 1 % (0-0); LYMPHOCYTES 17 % (9-44); MONOCYTES 14 % (0-8); NEUTROPHIL # MANUAL DIFF 1.4 TH/MM3 (1.8-7.7); POLYS (SEG NEUTROPHILS) 64 % (16-70)
[2017-07-16] MEDS: LEVOFLOXACIN 750 MG TAB PO SCH (09:02)
[2017-07-16] MEDS: SODIUM CHLORIDE 0.9% FLUSH 10 ML FLUSH IV FLUSH SCH ×2 (09:02→21:00)
[2017-07-16] MEDS: DOCUSATE SODIUM 50 MG/SENNA 8.6 MG TAB PO SCH ×2 (09:02→21:00)
[2017-07-16] MEDS: MULTIVITAMIN TAB PO SCH (09:02)
[2017-07-16] MEDS: FLUTICASONE PROPIONATE 50 MCG/ACT 16 GM NASAL SPRAY EACH NARE SCH (09:02)
[2017-07-16] MEDS: PETROLATUM 49%/ZINC OXIDE 15% 4 OUNCE TUBE TOPICAL SCH (09:03)
[2017-07-16] MEDS: HYDROCORTISONE 1% CREAM 30 GM TOPICAL SCH ×2 (09:03→21:33)
[2017-07-16] MEDS ORDERED: ACETAMINOPHEN 325 MG TAB PO PRN (10:15)
[2017-07-16] MEDS ORDERED: diphenhydrAMINE HCL 25 MG CAP PO PRN (10:15)
[2017-07-16] MEDS ORDERED: SODIUM CHLOR 0.9% 250 ML INJ 250 ML IV ONE (10:15)
--- NOTE | 2017-07-16 11:43 | PD.ONC.PN ---
Subjective Subjective Remarks T-max 100.0 overnight Patient resting in bed with her daughter at bedside. She reports she has been feeling somewhat dizzy Somewhat averted to physical therapy but reports she is willing to give it a try Objective Data Date Time Temp Pulse Resp B/P (MAP) Pulse Ox O2 Delivery O2 Flow Rate FiO2 07/16/17 11:00 87 07/16/17 07:39 99.0 84 18 108/57 (74) 97 07/16/17 07:00 82 07/16/17 06:00 76 07/16/17 05:14 98.6 83 16 119/57 (77) 99 07/16/17 05:00 86 07/16/17 04:00 78 07/16/17 04:00 81 07/16/17 03:00 92 07/16/17 03:00 92 07/16/17 02:00 82 07/16/17 01:24 98.8 07/16/17 01:00 88 07/16/17 00:03 100.0 92 16 100/62 (75) 97 07/16/17 00:00 90 07/16/17 00:00 87 07/15/17 23:00 90 07/15/17 22:00 90 07/15/17 21:00 92 07/15/17 20:43 99.6 94 16 115/66 (82) 95 07/15/17 20:00 100 07/15/17 20:00 96 07/15/17 19:00 96 07/15/17 17:25 98.0 89 16 121/81 (94) 96 07/15/17 15:55 90 07/15/17 15:50 90 07/15/17 12:07 98.4 102 18 115/52 (73) 95 07/15/17 12:00 87 07/16/17 07/16/17 07/16/17 07:00 15:00 23:00 Intake Total 1410 ml 960 ml Output Total 1850 ml Balance -440 ml 960 ml Result Diagram: 07/16/17 0530 07/16/17 0530 Laboratory Results Laboratory Tests Test 07/16/17 05:30 White Blood Count 2.1 TH/MM3 Red Blood Count 2.35 MIL/MM3 Hemoglobin 6.9 GM/DL Hematocrit 20.0 % Mean Corpuscular Volume 85.4 FL Mean Corpuscular Hemoglobin 29.4 PG Mean Corpuscular Hemoglobin Concent 34.4 % Red Cell Distribution Width 14.3 % Platelet Count 62 TH/MM3 Mean Platelet Volume 6.7 FL Neutrophils (%) (Auto) 51.3 % Lymphocytes (%) (Auto) 23.3 % Monocytes (%) (Auto) 17.6 % Eosinophils (%) (Auto) 7.7 % Basophils (%) (Auto) 0.1 % Neutrophils # (Auto) 1.1 TH/MM3 Lymphocytes # (Auto) 0.5 TH/MM3 Monocytes # (Auto) 0.4 TH/MM3 Eosinophils # (Auto) 0.2 TH/MM3 Basophils # (Auto) 0.0 TH/MM3 CBC Comment AUTO DIFF Differential Total Cells Counted 100 Neutrophils % (Manual) 64 % Band Neutrophils % 3 % Lymphocytes % 17 % Monocytes % 14 % Eosinophils % 1 % Neutrophils # (Manual) 1.4 TH/MM3 Differential Comment FINAL DIFF MANUAL Blastocytes 1 % Platelet Estimate LOW Platelet Morphology Comment NORMAL Blood Urea Nitrogen 7 MG/DL Creatinine 0.71 MG/DL Random Glucose 106 MG/DL Calcium Level 7.8 MG/DL Sodium Level 140 MEQ/L Potassium Level 3.6 MEQ/L Chloride Level 110 MEQ/L Carbon Dioxide Level 23.9 MEQ/L Anion Gap 6 MEQ/L Estimat Glomerular Filtration Rate 81 ML/MIN Administered Medications Medications (Trade) Dose Ordered Sig/Prabha Route PRN Reason Start Time Stop Time Status Last Admin Dose Admin Aztreonam 2000 mg/ Sodium Chloride 100 ml @ 200 mls/hr Q8H IV 07/12/17 09:00 07/16/17 09:02 Sodium Chloride 1,000 ml @ 100 mls/hr Q10H IV 07/12/17 02:20 07/16/17 05:17 Sodium Chloride (NS Flush) 2 ml UNSCH PRN IV FLUSH FLUSH AFTER USING IV ACCESS 07/12/17 02:30 07/12/17 15:53 Sodium Chloride (NS Flush) 2 ml BID IV FLUSH 07/12/17 09:00 07/16/17 09:02 Acetaminophen (Tylenol) 650 mg Q6H PRN PO FEVER/PAIN SCALE 1 TO 2 07/12/17 02:30 07/16/17 00:15 Acetaminophen/ Hydrocodone Bitart ([place] 5-325 Mg) 1 tab Q4H PRN PO PAIN SCALE 3 TO 5 07/12/17 02:30 07/16/17 09:25 Senna/Docusate Sodium (Katheryn-Colace) 1 tab BID PO 07/12/17 09:00 07/16/17 09:02 Magnesium Hydroxide (Milk Of Yeni Nagy) 30 ml Q12H PRN PO Mild constipation 07/12/17 02:30 07/14/17 09:01 Fluticasone Propionate (Flonase Abhi Spr) 1 spray DAILY EACH NARE 07/13/17 09:00 07/16/17 09:02 Multivitamins (Theragran) 1 tab DAILY PO 07/13/17 09:00 07/16/17 09:02 Heparin Sodium (Porcine) (Heparin Inj) 5,000 units Q8HR SQ 07/12/17 22:00 Future Hold 07/13/17 06:00 Petrolatum/Zinc Oxide (Sensi-Care Protective Barrier Oint) 1 applic DAILY TOPICAL 07/13/17 09:00 07/16/17 09:03 Vancomycin HCl 1250 mg/Sodium Chloride 262.5 ml @ 250 mls/hr Q12H IV 07/13/17 12:00 07/16/17 00:08 Levofloxacin (Levaquin) 750 mg DAILY PO 07/13/17 13:00 07/16/17 09:02 Hydrocortisone (Hydrocortisone 1% Cream) 1 applic BID TOPICAL 07/13/17 21:00 07/16/17 09:03 Diphenhydramine HCl (Benadryl) 25 mg Q6H PRN PO ITCHING 07/15/17 16:15 07/15/17 17:40 Ondansetron HCl (Zofran Inj) 4 mg Q4H PRN IVP NAUSEA OR VOMITING 07/15/17 17:45 07/16/17 09:23 Objective Remarks GENERAL: Elderly female resting in bed in no obvious distress SKIN: Diffuse rash to chest. Patient states this is largely unchanged from Friday HEAD: Normocephalic. EYES: No injection or drainage. NECK: Supple, trachea midline. CARDIOVASCULAR: Regular rate and rhythm without murmurs. RESPIRATORY: Clear posteriorly. Breathing unlabored at rest. : Germain catheter in place with clear derek urine. GASTROINTESTINAL: Abdomen soft, non-tender, nondistended. EXTREMITIES: No cyanosis, or edema. MUSCULOSKELETAL: Adequate muscle tone. NEUROLOGICAL: No obvious focal deficit. Awake, alert, and oriented x3. 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 status post right nephrectomy --previously treated with cisplatin and gemcitabine x 3 cycles. She reports that this was poorly tolerated, requiring hospital admission at the [facility]. She is currently on a medication, which I believe may be atezolizumab, under the direction of oncologist at [facility]. Plan 1. Continue Abx 2. Continue to follow blood cultures 3. Transfuse 1 unit packed red blood cells today for hemoglobin of 6.9. 4. Check CBC in a.m; patient's counts beginning to zohreh from the [place] that she received on 07/07. Attending Statement The exam, history, and the medical decision-making described in the above note were completed with the assistance of the mid-level provider. I reviewed and agree with the findings presented. I attest that I had a [id number] encounter with the patient on the same day, and personally performed and documented my assessment and findings in the medical record. 71y oF with metastatic TCC of the ureter currently undergoing treatment with pemetrexed. Admitted with fever. Cytoeopenias due to chemotherapy. Continue supportive care. Shasha Kim July 16, 2017 11:43 Shawnee De La Torre MD July 17, 2017 06:03
--- NOTE | 2017-07-16 14:04 | HHI.IDPN ---
Subjective Subjective Remarks co pruritic rash Rash that strted mostly R chest is now present all over torso, upperextremeties and back Its pruritic and macular papular in nature no fever cortes S PSAE in urine clx Antibiotics levaquine Allergies: Coded Allergies: penicillin G (Verified Allergy, Unknown, Swelling, 03/24/17) Objective . Vital Signs Date Time Temp Pulse Resp B/P (MAP) Pulse Ox O2 Delivery O2 Flow Rate FiO2 07/16/17 11:28 99.0 92 18 108/58 (75) 97 07/16/17 11:00 87 07/16/17 07:39 99.0 84 18 108/57 (74) 97 07/16/17 07:00 82 07/16/17 06:00 76 07/16/17 05:14 98.6 83 16 119/57 (77) 99 07/16/17 05:00 86 07/16/17 04:00 78 07/16/17 04:00 81 07/16/17 03:00 92 07/16/17 03:00 92 07/16/17 02:00 82 07/16/17 01:24 98.8 07/16/17 01:00 88 07/16/17 00:03 100.0 92 16 100/62 (75) 97 07/16/17 00:00 90 07/16/17 00:00 87 07/15/17 23:00 90 07/15/17 22:00 90 07/15/17 21:00 92 07/15/17 20:43 99.6 94 16 115/66 (82) 95 07/15/17 20:00 100 07/15/17 20:00 96 07/15/17 19:00 96 07/15/17 17:25 98.0 89 16 121/81 (94) 96 07/15/17 15:55 90 07/15/17 15:50 90 07/16/17 07/16/17 07/17/17 14:59 22:59 06:59 Intake Total 960 ml Balance 960 ml Intake Oral 960 ml . Laboratory Tests Test 07/15/17 04:50 07/16/17 05:30 White Blood Count 2.2 TH/MM3 2.1 TH/MM3 Red Blood Count 2.41 MIL/MM3 2.35 MIL/MM3 Hemoglobin 7.2 GM/DL 6.9 GM/DL Hematocrit 20.4 % 20.0 % Mean Corpuscular Volume 84.9 FL 85.4 FL Mean Corpuscular Hemoglobin 29.7 PG 29.4 PG Mean Corpuscular Hemoglobin Concent 35.0 % 34.4 % Red Cell Distribution Width 14.3 % 14.3 % Platelet Count 83 TH/MM3 62 TH/MM3 Mean Platelet Volume 6.2 FL 6.7 FL CBC Comment AUTO DIFF AUTO DIFF Differential Total Cells Counted 100 100 Neutrophils % (Manual) 61 % 64 % Lymphocytes % 21 % 17 % Monocytes % 13 % 14 % Eosinophils % 5 % 1 % Neutrophils # (Manual) 1.3 TH/MM3 1.4 TH/MM3 Differential Comment FINAL DIFF MANUAL FINAL DIFF MANUAL Dohle Bodies PRESENT Platelet Estimate LOW LOW Platelet Morphology Comment NORMAL NORMAL Red Cell Morphology Comment NORMAL Neutrophils (%) (Auto) 51.3 % Lymphocytes (%) (Auto) 23.3 % Monocytes (%) (Auto) 17.6 % Eosinophils (%) (Auto) 7.7 % Basophils (%) (Auto) 0.1 % Neutrophils # (Auto) 1.1 TH/MM3 Lymphocytes # (Auto) 0.5 TH/MM3 Monocytes # (Auto) 0.4 TH/MM3 Eosinophils # (Auto) 0.2 TH/MM3 Basophils # (Auto) 0.0 TH/MM3 Band Neutrophils % 3 % Blastocytes 1 % Laboratory Tests Test 07/15/17 04:50 07/16/17 05:30 Blood Urea Nitrogen 9 MG/DL 7 MG/DL Creatinine 0.70 MG/DL 0.71 MG/DL Random Glucose 102 MG/DL 106 MG/DL Total Protein 5.1 GM/DL Albumin 1.6 GM/DL Calcium Level 7.7 MG/DL 7.8 MG/DL Alkaline Phosphatase 105 U/L Aspartate Amino Transf (AST/SGOT) 22 U/L Alanine Aminotransferase (ALT/SGPT) 14 U/L Total Bilirubin 0.4 MG/DL Sodium Level 138 MEQ/L 140 MEQ/L Potassium Level 3.4 MEQ/L 3.6 MEQ/L Chloride Level 108 MEQ/L 110 MEQ/L Carbon Dioxide Level 22.8 MEQ/L 23.9 MEQ/L Anion Gap 7 MEQ/L 6 MEQ/L Estimat Glomerular Filtration Rate 82 ML/MIN 81 ML/MIN Imaging Last Impressions Chest X-Ray 07/12/17 0000 Signed Impressions: Service Date/Time: Wednesday, July 12, 2017 01:19 - CONCLUSION: The lungs are clear. Eleazar Mora MD Physical Exam CONSTITUTIONAL/GENERAL: This is an adequately nourished patient, in no apparent distress. TUBES/LINES/DRAINS: R side PORT in place surrounded by the macular-papular rash SKIN: Mild - to modereata slightly raised non pruritic rash R chest , or lesions. Skin temperature appropriate. Not diaphoretic. HEAD: Atraumatic. Normocephalic. EYES: Pupils equal and round and reactive. Extraocular motions intact. No scleral icterus. No injection or drainage. Fundi not examined. ENT: Hearing grossly normal. Nose without bleeding or purulent drainage. Throat without visible erythema, exudates, masses, or lesions. NECK: Trachea midline. Supple, nontender. No palpable thyroid enlargement or nodularity. CARDIOVASCULAR: Regular rate and rhythm without murmurs, gallops, or rubs. No JVD. Peripheral pulses symmetric. RESPIRATORY/CHEST: Symmetric, unlabored respirations. Clear to auscultation. Breath sounds equal bilaterally. No wheezes, rales, or rhonchi. GASTROINTESTINAL: Abdomen soft, non-tender, nondistended. No hepato-splenomegaly , or palpable masses. No guarding. Bowel sounds present. GENITOURINARY: Without palpable bladder distension. Germain catheter in place with cloudy light yellow urine B/l hard inguinal masses R about 6 cm, L about 2.5 cm MUSCULOSKELETAL: Extremities without clubbing, cyanosis, or edema. No joint tenderness or effusion noted. No calf tenderness. No mottling or clubbing. LYMPHATICS: No palpable cervical or supraclavicular adenopathy. B/l fixed firm inguinal lymphadenopathy as above NEUROLOGICAL: Awake and alert. Motor and sensory grossly within normal limits. Follows commands. Clear speech. Moves all extremities. PSYCHIATRIC: No obvious anxiety/depression. no apparent hallucinations or other psychotic thought process. Assessment & Plan Remarks Complicated UTI, psuedomonas cortes S pt with obstructive uorpathy 2/2 metastatic kidney cancer Immunosuppressed sp chemo Pruritic macular papular rash - most cw allergic reaction NO cellulitis dc azactam dc vanco cont levaquine \ fu rash Marquita Selby MD July 16, 2017 14:04
--- NOTE | 2017-07-16 16:33 | HHI.PR ---
Subjective Remarks Patient told me she just took some Benadryl which makes her little bit sleepy. She has some pain on her arm which has not improved. Denies any nausea at this time however she did have some earlier today and took some Zofran. She was able to eat some food earlier and keep it down today as well. Objective Vitals Vital Signs Date Time Temp Pulse Resp B/P (MAP) Pulse Ox O2 Delivery O2 Flow Rate FiO2 07/16/17 15:00 89 07/16/17 14:36 99.4 92 18 118/72 99 07/16/17 14:13 99.2 95 18 132/69 97 07/16/17 11:28 99.0 92 18 108/58 (75) 97 07/16/17 11:00 87 07/16/17 07:39 99.0 84 18 108/57 (74) 97 07/16/17 07:00 82 07/16/17 06:00 76 07/16/17 05:14 98.6 83 16 119/57 (77) 99 07/16/17 05:00 86 07/16/17 04:00 78 07/16/17 04:00 81 07/16/17 03:00 92 07/16/17 03:00 92 07/16/17 02:00 82 07/16/17 01:24 98.8 07/16/17 01:00 88 07/16/17 00:03 100.0 92 16 100/62 (75) 97 07/16/17 00:00 90 07/16/17 00:00 87 07/15/17 23:00 90 07/15/17 22:00 90 07/15/17 21:00 92 07/15/17 20:43 99.6 94 16 115/66 (82) 95 07/15/17 20:00 100 07/15/17 20:00 96 07/15/17 19:00 96 07/15/17 17:25 98.0 89 16 121/81 (94) 96 I/O 07/15/17 07/15/17 07/15/17 07/16/17 07/16/17 07/16/17 06:59 14:59 22:59 06:59 14:59 22:59 Intake Total 480 ml 1365 ml 900 ml 1410 ml 1322.5 ml Output Total 2150 ml 900 ml 650 ml 1850 ml Balance -1670 ml 465 ml 250 ml -440 ml 1322.5 ml Intake Oral 480 ml 800 ml 960 ml 960 ml IV Total 1365 ml 100 ml 450 ml 362.5 ml Output Urine Total 2150 ml 900 ml 650 ml 1850 ml # Bowel Movements 1 Result Diagram: 07/16/17 0530 07/16/17 0530 Imaging Last Impressions Chest X-Ray 07/12/17 0000 Signed Impressions: Service Date/Time: Wednesday, July 12, 2017 01:19 - CONCLUSION: The lungs are clear. Eleazar Mora MD Objective Remarks GENERAL: Awake and alert. Laying in bed. Family at bedside SKIN: + Erythematous macular rash over right anterior chest wall/shoulder CARDIOVASCULAR: Regular rate and rhythm. No obvious murmurs to auscultation. RESPIRATORY: No wheezing. Clear to auscultation. Breath sounds equal bilaterally. GASTROINTESTINAL: Abdomen soft, non-tender, nondistended. BS normal. A/P Problem List: (1) Fever ICD Code: R50.9 - Fever, unspecified (2) UTI (urinary tract infection) ICD Code: N39.0 - Urinary tract infection, site not specified (3) Breast CA ICD Code: C50.919 - Malignant neoplasm of unspecified site of unspecified female breast Assessment and Plan 71-year-old female with a PMH of HTN, Hyperlipidemia, Depression, IBS and Breast CA on Chemo who presented to the ER with complaints of generalized malaise and fever. Neutropenic fever +immunocompromised on chemotherapy White count 2.1 today. Tmax 100.0 overnight CXR w/no acute findings. Blood cultures with no growth x 4 days. Flu antigen neg.Legionella and pneumococcal antigen negative. Urine culture growing Pseudomonas Oncology following. Appreciate assistance. s/p vancomycin, aztreonam, and continue Levaquin per IDs recommendations. Monitor rash as it could be reaction to antibiotic Repeat blood cultures negative 72 hour. Continue to monitor for fevers. Continue IV hydration Anemia, secondary to chemotherapy Thrombocytopenia Hgb dropped from 9.3 to 7.2-->6.9. Currently getting transfused 1 unit of packed red blood cells.-Monitor H&H No signs of active bleeding -Hold Heparin -Monitor for any evidence of bleeding Rash noted over anterior chest -ID following. Pseudomonal UTI: UA with mod leukocytes, 7 WBCs, occ bacteria. Patient has chronic indwelling herrera. Denies any c/o abdominal pain. Urine culture positive for Pseudomonas. Continue antibiotics Right ureter CA, s/p open right nephroureterectomy with excision of bladder cuff : chronic indwelling herrera. Follows with Dr. Lopez. Has appt Friday to have herrera changed. Difficult Herrera exchange per patient report, only has one nurse at Dr. Lopez's office who is able to do Breast CA s/p mastectomy: follows at [facility], currently on chemotherapy, outpatient follow up at [facility] as scheduled to resume treatment. -Continue pain management -Continue with PT/OT -Consult palliative care-I did speak with palliative care and patient would like to be a DNR CKD Creatinine appears to near baseline. Monitor. Avoid nephrotoxic agent Hx of DM: not on any diabetic meds HgbA1c 5.3 Constipation, Bowel regimen in place DVT Prophylaxis: SCD Discharge Planning Continue to monitor for fevers. Continue IV antibiotics. Appreciate assistance from ID and oncology Awaiting final recommendations from both ID and oncology. Monitor H&H Paula Dickerson MD July 16, 2017 16:33
[2017-07-16] MEDS ORDERED: MORPHINE SULFATE 4 MG/ML INJ IV PUSH ONE (17:00)
--- NOTE | 2017-07-16 17:41 | HHI.HCPN ---
Reason for visit a. To assist with evaluation and management of symptoms including:Pain, nausea, generalized weakness, debility b. To assist medical decision maker(s) with: better understanding of current medical conditions; weighing benefits/burdens of medical treatment options; making medical treatment decisions. Subjective/Interval History Follow up medically necessary for symptom management and further clarification of goals of care. Patient seen and examined in her room in the presence of her . Patient is complaining of right shoulder and arm pain. Patient required 6 as needed doses hydrocodone/acetaminophen 5/325 in the past 24 hours and bedside RN had to call attending physician for a one time dose of Morphine Sulfate 1mg IVP. She has also had episodes of nausea which she reports is relieved with Zofran. Patient states that at home she also uses Compazine. Patient reports that she has been feeling weak and cold today. Laboratory workup today revealed WBC 2.1, Hgb 6.9, Hct 20.0, Plt count 62. 1 unit pRBC transfused. Infectious disease following. Case discussed with Trina Gary, Oncology [employer] . Family/friend interactions Patient`s at bedside. . Advance Directives Living Will: Completed, but not made available Advance Directive Specifics Health Care Surrogate(s): [facility]- Spouse- Damian Castro- [phone] (home)/[phone](cell) Alternate EWA-zjnxjthj-Nmxlt-Ann, Vngnyud-[phone] . Objective Vital Signs Date Time Temp Pulse Resp B/P (MAP) Pulse Ox O2 Delivery O2 Flow Rate FiO2 07/16/17 16:58 100.4 97 18 125/66 96 07/16/17 15:00 89 07/16/17 14:36 99.4 92 18 118/72 99 07/16/17 14:13 99.2 95 18 132/69 97 07/16/17 11:28 99.0 92 18 108/58 (75) 97 07/16/17 11:00 87 07/16/17 07:39 99.0 84 18 108/57 (74) 97 07/16/17 07:00 82 07/16/17 06:00 76 07/16/17 05:14 98.6 83 16 119/57 (77) 99 07/16/17 05:00 86 07/16/17 04:00 78 07/16/17 04:00 81 07/16/17 03:00 92 07/16/17 03:00 92 07/16/17 02:00 82 07/16/17 01:24 98.8 07/16/17 01:00 88 07/16/17 00:03 100.0 92 16 100/62 (75) 97 07/16/17 00:00 90 07/16/17 00:00 87 07/15/17 23:00 90 07/15/17 22:00 90 07/15/17 21:00 92 07/15/17 20:43 99.6 94 16 115/66 (82) 95 07/15/17 20:00 100 07/15/17 20:00 96 07/15/17 19:00 96 07/15/17 17:25 98.0 89 16 121/81 (94) 96 Intake & Output 07/16/17 07/16/17 07:00 19:00 Intake Total 1410 ml 1322.5 ml Output Total 1850 ml Balance -440 ml 1322.5 ml Intake Oral 960 ml 960 ml IV Total 450 ml 362.5 ml Output Urine Total 1850 ml Physical Exam CONSTITUTIONAL/GENERAL: This is an adequately nourished patient c/o right shoulder pain and generalized weakness. TUBES/LINES/DRAINS: [id number] right chest wall, Germain catheter, SCDs SKIN: Erythematous rash to right chest wall, neck, face and upper back. Ecchymoses on upper extremities. No wounds seen anteriorly. Not diaphoretic. HEAD: Atraumatic. Normocephalic. EYES: Pupils equal and round and reactive. Extraocular motions intact. No scleral icterus. No injection or drainage. Fundi not examined. ENT: Hearing grossly normal. Nose without bleeding or purulent drainage. Moist oral mucosa NECK: Trachea midline. Supple, nontender. CARDIOVASCULAR: S1, S2 normal; no murmurs, gallops, or rubs. No JVD. Peripheral pulses symmetric. RESPIRATORY/CHEST: Symmetric, unlabored respirations. Diminished in the bases. No wheezes, rales, or rhonchi. GASTROINTESTINAL: Abdomen soft, non-tender, nondistended. No guarding. Bowel sounds present. GENITOURINARY: Without palpable bladder distension. Germain catheter in place. MUSCULOSKELETAL: Extremities without clubbing, cyanosis, or edema. No calf tenderness. No mottling or clubbing. NEUROLOGICAL: Awake and alert. Motor and sensory grossly within normal limits. Follows commands. Cognitively sharp. Moves all extremities. PSYCHIATRIC: No obvious anxiety/depression. no apparent hallucinations or other psychotic thought process. Diagnostic Tests Laboratory Laboratory Tests Test 07/13/17 19:28 07/14/17 00:18 07/14/17 05:15 07/14/17 11:35 Hemoglobin 7.8 GM/DL (11.6-15.3) 7.5 GM/DL (11.6-15.3) 7.8 GM/DL (11.6-15.3) Hematocrit 23.1 % (35.0-46.0) 21.6 % (35.0-46.0) 22.4 % (35.0-46.0) White Blood Count 2.1 TH/MM3 (4.0-11.0) Red Blood Count 2.64 MIL/MM3 (4.00-5.30) Mean Corpuscular Volume 84.8 FL (80.0-100.0) Mean Corpuscular Hemoglobin 29.6 PG (27.0-34.0) Mean Corpuscular Hemoglobin Concent 34.9 % (32.0-36.0) Red Cell Distribution Width 14.5 % (11.6-17.2) Platelet Count 113 TH/MM3 (150-450) Mean Platelet Volume 5.8 FL (7.0-11.0) CBC Comment AUTO DIFF Differential Total Cells Counted 100 Neutrophils % (Manual) 64 % (16-70) Lymphocytes % 29 % (9-44) Monocytes % 5 % (0-8) Eosinophils % 1 % (0-4) Neutrophils # (Manual) 1.4 TH/MM3 (1.8-7.7) Metamyelocytes 1 % (0-1) Differential Comment FINAL DIFF MANUAL Platelet Estimate LOW (NORMAL) Platelet Morphology Comment NORMAL (NORMAL) Red Cell Morphology Comment NORMAL (NORMAL) Vancomycin Level Trough 15.9 MCG/ML (5.0-10.0) Test 07/15/17 04:50 07/16/17 05:30 White Blood Count 2.2 TH/MM3 (4.0-11.0) 2.1 TH/MM3 (4.0-11.0) Red Blood Count 2.41 MIL/MM3 (4.00-5.30) 2.35 MIL/MM3 (4.00-5.30) Hemoglobin 7.2 GM/DL (11.6-15.3) 6.9 GM/DL (11.6-15.3) Hematocrit 20.4 % (35.0-46.0) 20.0 % (35.0-46.0) Mean Corpuscular Volume 84.9 FL (80.0-100.0) 85.4 FL (80.0-100.0) Mean Corpuscular Hemoglobin 29.7 PG (27.0-34.0) 29.4 PG (27.0-34.0) Mean Corpuscular Hemoglobin Concent 35.0 % (32.0-36.0) 34.4 % (32.0-36.0) Red Cell Distribution Width 14.3 % (11.6-17.2) 14.3 % (11.6-17.2) Platelet Count 83 TH/MM3 (150-450) 62 TH/MM3 (150-450) Mean Platelet Volume 6.2 FL (7.0-11.0) 6.7 FL (7.0-11.0) CBC Comment AUTO DIFF AUTO DIFF Differential Total Cells Counted 100 100 Neutrophils % (Manual) 61 % (16-70) 64 % (16-70) Lymphocytes % 21 % (9-44) 17 % (9-44) Monocytes % 13 % (0-8) 14 % (0-8) Eosinophils % 5 % (0-4) 1 % (0-4) Neutrophils # (Manual) 1.3 TH/MM3 (1.8-7.7) 1.4 TH/MM3 (1.8-7.7) Differential Comment FINAL DIFF MANUAL FINAL DIFF MANUAL Dohle Bodies PRESENT (NONE SEEN) Platelet Estimate LOW (NORMAL) LOW (NORMAL) Platelet Morphology Comment NORMAL (NORMAL) NORMAL (NORMAL) Red Cell Morphology Comment NORMAL (NORMAL) Blood Urea Nitrogen 9 MG/DL (7-18) 7 MG/DL (7-18) Creatinine 0.70 MG/DL (0.50-1.00) 0.71 MG/DL (0.50-1.00) Random Glucose 102 MG/DL (74-106) 106 MG/DL (74-106) Total Protein 5.1 GM/DL (6.4-8.2) Albumin 1.6 GM/DL (3.4-5.0) Calcium Level 7.7 MG/DL (8.5-10.1) 7.8 MG/DL (8.5-10.1) Alkaline Phosphatase 105 U/L (45-117) Aspartate Amino Transf (AST/SGOT) 22 U/L (15-37) Alanine Aminotransferase (ALT/SGPT) 14 U/L (10-53) Total Bilirubin 0.4 MG/DL (0.2-1.0) Sodium Level 138 MEQ/L (136-145) 140 MEQ/L (136-145) Potassium Level 3.4 MEQ/L (3.5-5.1) 3.6 MEQ/L (3.5-5.1) Chloride Level 108 MEQ/L (98-107) 110 MEQ/L (98-107) Carbon Dioxide Level 22.8 MEQ/L (21.0-32.0) 23.9 MEQ/L (21.0-32.0) Anion Gap 7 MEQ/L (5-15) 6 MEQ/L (5-15) Estimat Glomerular Filtration Rate 82 ML/MIN (>89) 81 ML/MIN (>89) Neutrophils (%) (Auto) 51.3 % (16.0-70.0) Lymphocytes (%) (Auto) 23.3 % (9.0-44.0) Monocytes (%) (Auto) 17.6 % (0.0-8.0) Eosinophils (%) (Auto) 7.7 % (0.0-4.0) Basophils (%) (Auto) 0.1 % (0.0-2.0) Neutrophils # (Auto) 1.1 TH/MM3 (1.8-7.7) Lymphocytes # (Auto) 0.5 TH/MM3 (1.0-4.8) Monocytes # (Auto) 0.4 TH/MM3 (0-0.9) Eosinophils # (Auto) 0.2 TH/MM3 (0-0.4) Basophils # (Auto) 0.0 TH/MM3 (0-0.2) Band Neutrophils % 3 % (0-6) Blastocytes 1 % (0-0) Result Diagram: 07/16/17 2464 07/16/17 03 Assessment and Plan Disease Oriented Problem List: (1) Transitional cell carcinoma of ureter (2) Breast CA (3) Febrile neutropenia (4) UTI (urinary tract infection) (5) Depression (6) Irritable bowel syndrome Symptom Scale: (1) Pain Comment: Complaining of pain to right knee. NM bone scan revealed multifocal high of increased radiotracer activity suggestive of metastatic disease involving right distal humerus, right clavicle, right scapula, bilateral distal femur, and right posterior ribs. Patient currently undergoing chemotherapy. . (2) Generalized weakness 0-10 Scale: Unable to quantify Comment: Patient is currently undergoing chemotherapy and has low hemoglobin . (3) Nausea 0-10 Scale: Unable to quantify Comment: Patient currently on chemotherapy, and is been complaining of nausea. . (4) Debility 0-10 Scale: Unable to quantify Comment: Progressive . Pertinent Non-Medical Issues Psychosocial:Patient was born and raised in [place], [place]. She moved to [place] in May of 1984. Patient is to a of 46 years. Patient has worked for [employer] in the [place]. 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 She has 1 grandson. Patient enjoys boating and camping with her family. Spiritual: Patient is [employer]-she has a local friend who visits and is a Truck Driver'S Offsider. Legal: Patient is completed a living will- will bring copy from home Ethical issues impacting care: None identified at this time . Important Contacts Spouse-Damian Castro -[phone] (home)/[phone](other) Daughter-Matthew Clarke-[phone] . 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 Patient presented to the ER by ambulance on 07/11/17 complaining of generalized malaise and fever with a temperature of 101F. Patient is currently on chemotherapy for breast cancer and she follows [facility]. Clinical course complicated with possible metastatic disease to bone, urinary tract infection, and febrile neutropenia. Given ongoing comorbidities patient remains at high risk for further complications, deterioration and decline. . Code Status: No Code Plan PLAN: Legal decision maker: Patient is currently able to participate in medical decision making. In the event that patient is incapacitated, she has designated her Damian Castro as her healthcare surrogate and her daughter Tricia Castro as her alternate healthcare surrogate. Goals: Aggressive short of no code CODE STATUS: No code DNR/DNI-Community DNR signed Goals remain aggressive. Reminded patient`s to bring a copy of her living will and NM bone scan for medical team to review. SYMPTOMS: * Pain: Patient complaining of pain to right knee. NM bone scan revealed multifocal high of increased radiotracer activity suggestive of metastatic disease involving right distal humerus, right clavicle, right scapula, bilateral distal femur, and right posterior ribs. Patient currently undergoing chemotherapy. Patient his hydrocodone/acetaminophen 5/325 q 4 hrs prn. Pain managed with hydrocodone/acetaminophen 5/325 q 4 hrs prn. Patient required 6 as needed doses in the past 24 hours. Received 1 time dose of Morphine sulfate this afternoon. Recommending increasing Hydrocodone to 7.5 mg q 4 hrs prn if patient`s pain continues to increase. 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 Complaining of nausea. Nausea managed with ondansetron 4 mg every 6 hrs prn. Patient required 3 as needed doses in the past 24 hours. Currently denies nausea, patient reports that she was able to eat most of her breakfast today. * Generalized weakness: Anemia secondary to chemotherapy. Hemoglobin 9.3 on admission, trending down. Hgb 6.9 today. 1 unit pRBC transfused. Continue to monitor hemoglobin. * Debility: Progressive. 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 Patient currently using a rolling walker. Patient may benefit from physical therapy if goals remain aggressive. Palliative care will continue to follow the patient during hospital course as condition evolves, to assist patient/decision-maker with understanding of their medical conditions, weighing benefits/burdens of treatment options, for clarification of goals of treatment. Additionally will assist with any symptoms of palliative concern Attestation To help prompt me to consider important information that might be impacting today's encounter and assessment, information from prior notes written by myself or my colleagues may have been "brought forward" into today's note. My signature on this note, however, is an attestation that I personally performed the exam, history, and/or decision-making noted today, and, unless otherwise indicated, the interactions with patient, family, and staff as well as the review of records all occurred today. I also attest that the listed assessment and stated plan reflect my best clinical judgment today based on the combination of historical information, prior notes, and today's exam/ interactions. When time spent is documented, it refers only to time spent today by the signer, or if indicated, combined time spent today by collaborating physician/nurse practitioner. Feliberto Freeman July 16, 2017 17:41
[2017-07-17] VITALS (9 sets, daily range): BP systolic 116–146; BP diastolic 63–138; PULSE 66–84; RESP 16–17; TEMP 97.6–98.7; O2SAT 95–99
[2017-07-17] MEDS: MECLIZINE HCL 25 MG TAB PO PRN ×3 (02:02→20:44)
[2017-07-17] MEDS: ONDANSETRON HCL 4 MG/2 ML VIAL IVP PRN ×4 (02:02→19:28)
[2017-07-17] MEDS: SODIUM CHLOR 0.9% 1000 ML INJ 1,000 ML IV SCH ×3 (04:27→22:20)
[2017-07-17] MEDS: ACETAMINOPHEN/HYDROcodone 325 MG/5 MG TAB PO PRN ×3 (06:25→19:28)
[2017-07-17 06:49] LABS: BASOPHIL % 0.1 % (0.0-2.0); EOSINOPHIL # 0.2 TH/MM3 (0-0.4); EOSINOPHIL % 5.3 % (0.0-4.0); HEMATOCRIT 23.3 % (35.0-46.0); HEMOGLOBIN 8.1 GM/DL (11.6-15.3); LYMPH % 14.4 % (9.0-44.0); LYMPHOCYTE # 0.4 TH/MM3 (1.0-4.8); MEAN CELL VOLUME 82.1 FL (80.0-100.0); MEAN CORPUSCULAR HEMOGLOBIN 28.6 PG (27.0-34.0); MEAN CORPUSCULAR HGB CONC 34.8 % (32.0-36.0); MEAN PLATELET VOLUME 7.3 FL (7.0-11.0); MONO % 12.4 % (0.0-8.0); MONOCYTE # 0.4 TH/MM3 (0-0.9); NEUT % 67.8 % (16.0-70.0); PLATELET COUNT 56 TH/MM3 (150-450); RED BLOOD COUNT 2.84 MIL/MM3 (4.00-5.30); RED CELL DISTRIBUTION WIDTH 16.4 % (11.6-17.2); WHITE BLOOD COUNT 2.9 TH/MM3 (4.0-11.0)
[2017-07-17 07:06] LABS: BICARBONATE 24.4 MEQ/L (21.0-32.0); CALCIUM 8.1 MG/DL (8.5-10.1); CREATININE 0.61 MG/DL (0.50-1.00)
[2017-07-17] MEDS: CYANOCOBALAMIN 1,000 MCG TAB PO SCH (08:38)
[2017-07-17] MEDS: DOCUSATE SODIUM 50 MG/SENNA 8.6 MG TAB PO SCH ×2 (08:38→21:00)
[2017-07-17] MEDS: FOLIC ACID 1 MG TAB PO SCH (08:38)
[2017-07-17] MEDS: LEVOFLOXACIN 750 MG TAB PO SCH (08:38)
[2017-07-17] MEDS: MULTIVITAMIN TAB PO SCH (08:38)
[2017-07-17] MEDS: SODIUM CHLORIDE 0.9% FLUSH 10 ML FLUSH IV FLUSH SCH ×2 (08:46→21:00)
[2017-07-17 10:17] LABS: BANDS 7 % (0-6); LYMPHOCYTES 19 % (9-44); MONOCYTES 6 % (0-8); POLYS (SEG NEUTROPHILS) 61 % (16-70); TOXIC GRANULATION 2+ (NORMAL)
[2017-07-17] MEDS: PETROLATUM 49%/ZINC OXIDE 15% 4 OUNCE TUBE TOPICAL SCH (11:09)
[2017-07-17] MEDS: HYDROCORTISONE 1% CREAM 30 GM TOPICAL SCH ×2 (11:09→21:00)
[2017-07-17] MEDS: FLUTICASONE PROPIONATE 50 MCG/ACT 16 GM NASAL SPRAY EACH NARE SCH (11:09)
--- NOTE | 2017-07-17 11:09 | HHI.PR ---
Subjective Remarks The patient is in bed she says she has a rash now extending more on the trunk scalp and forehead. The rash is itchy. Otherwise she denies any fever or chills. No problem with urination. Not eating much. Denies chest pain or shortness of breath no nausea vomiting no diarrhea or constipation. Objective Vitals Vital Signs Date Time Temp Pulse Resp B/P (MAP) Pulse Ox O2 Delivery O2 Flow Rate FiO2 07/17/17 08:30 98.2 84 16 116/63 (80) 07/17/17 04:25 97.7 82 16 132/72 (92) 96 07/17/17 04:00 66 07/17/17 00:51 97.6 80 17 146/81 (102) 97 07/17/17 00:00 69 07/16/17 21:19 97.8 86 18 165/80 (108) 96 07/16/17 20:00 84 07/16/17 16:58 100.4 97 18 125/66 96 07/16/17 15:00 89 07/16/17 14:36 99.4 92 18 118/72 99 07/16/17 14:13 99.2 95 18 132/69 97 07/16/17 11:28 99.0 92 18 108/58 (75) 97 I/O 07/16/17 07/16/17 07/16/17 07/17/17 07/17/17 07/17/17 07:00 15:00 23:00 07:00 15:00 23:00 Intake Total 1410 ml 1322.5 ml 1080 ml 1060 ml Output Total 1850 ml 2450 ml 1750 ml Balance -440 ml 1322.5 ml -1370 ml -690 ml Intake Oral 960 ml 960 ml 480 ml 960 ml IV Total 450 ml 362.5 ml 100 ml Packed Cells 400 ml Blood Product IV Normal Saline Flush 200 ml Output Urine Total 1850 ml 2450 ml 1750 ml # Bowel Movements 0 Result Diagram: 07/17/17 0430 07/17/17 0430 Imaging Last Impressions Chest X-Ray 07/12/17 0000 Signed Impressions: Service Date/Time: Wednesday, July 12, 2017 01:19 - CONCLUSION: The lungs are clear. Eleazar Mora MD Objective Remarks GENERAL: Awake and alert. Laying in bed. Family at bedside SKIN: + Erythematous macular rash over right anterior chest wall/shoulder, worsening, now on the neck, scalp and forehead. CARDIOVASCULAR: Regular rate and rhythm. No obvious murmurs to auscultation. RESPIRATORY: No wheezing. Clear to auscultation. Breath sounds equal bilaterally. GASTROINTESTINAL: Abdomen soft, non-tender, nondistended. BS normal. A/P Problem List: (1) Fever ICD Code: R50.9 - Fever, unspecified (2) UTI (urinary tract infection) ICD Code: N39.0 - Urinary tract infection, site not specified (3) Breast CA ICD Code: C50.919 - Malignant neoplasm of unspecified site of unspecified female breast Assessment and Plan 71-year-old female with a PMH of HTN, Hyperlipidemia, Depression, IBS and Breast CA on Chemo who presented to the ER with complaints of generalized malaise and fever. Neutropenic fever +immunocompromised on chemotherapy White count 2.1 today. Tmax 100.0 overnight CXR w/no acute findings. Blood cultures with no growth x 4 days. Flu antigen neg.Legionella and pneumococcal antigen negative. Urine culture growing Pseudomonas Oncology following. Appreciate assistance. s/p vancomycin, aztreonam, and continue Levaquin per IDs recommendations. Monitor rash as it could be reaction to antibiotic Repeat blood cultures negative 72 hour. Continue to monitor for fevers. Continue IV hydration Anemia, secondary to chemotherapy Thrombocytopenia Hgb dropped from 9.3 to 7.2-->6.9. Currently getting transfused 1 unit of packed red blood cells.-Monitor H&H No signs of active bleeding -Hold Heparin -Monitor for any evidence of bleeding Rash noted over anterior chest -ID following. Likely allergic reaction . the rash is worsening. Will give one dose of Solu-Medrol on the 125 mg 1 time. Continue prednisone 50 mg daily for 4-5 days. Pseudomonal UTI: UA with mod leukocytes, 7 WBCs, occ bacteria. Patient has chronic indwelling herrera. Denies any c/o abdominal pain. Urine culture positive for Pseudomonas. Continue antibiotics Right ureter CA, s/p open right nephroureterectomy with excision of bladder cuff : chronic indwelling herrera. Follows with Dr. Lopez. Has appt Friday to have herrera changed. Difficult Herrera exchange per patient report, only has one nurse at Dr. Lopez's office who is able to do Breast CA s/p mastectomy: follows at [place], currently on chemotherapy, outpatient follow up at [place] as scheduled to resume treatment. -Continue pain management -Continue with PT/OT -Consult palliative care-I did speak with palliative care and patient would like to be a DNR CKD Creatinine appears to near baseline. Monitor. Avoid nephrotoxic agent Hx of DM: not on any diabetic meds HgbA1c 5.3 Constipation, Bowel regimen in place DVT Prophylaxis: SCD Discharge Planning Continue to monitor for fevers. Continue IV antibiotics. Appreciate assistance from ID and oncology Awaiting final recommendations from both ID and oncology. Monitor H&H Now with fracture of the trunk neck and scalp and forehead. Likely allergic reaction. We will give steroids. Monitor Discussed with the patient, family at bedside, nurse, hematology aircraft electrical systems specialist Lillie Bradley MD July 17, 2017 11:09
--- NOTE | 2017-07-17 11:14 | PD.ONC.PN ---
Subjective Subjective Remarks Afebrile Pt resting in bed with visitors present She reports the rash is now extended up to her face Still having some vertigo She reports this was not helped with blood transfusion yesterday Reports pain is well controlled at present Objective Data Date Time Temp Pulse Resp B/P (MAP) Pulse Ox O2 Delivery O2 Flow Rate FiO2 07/17/17 08:30 98.2 84 16 116/63 (80) 07/17/17 04:25 97.7 82 16 132/72 (92) 96 07/17/17 04:00 66 07/17/17 00:51 97.6 80 17 146/81 (102) 97 07/17/17 00:00 69 07/16/17 21:19 97.8 86 18 165/80 (108) 96 07/16/17 20:00 84 07/16/17 16:58 100.4 97 18 125/66 96 07/16/17 15:00 89 07/16/17 14:36 99.4 92 18 118/72 99 07/16/17 14:13 99.2 95 18 132/69 97 07/16/17 11:28 99.0 92 18 108/58 (75) 97 07/17/17 07/17/17 07/17/17 07:00 15:00 23:00 Intake Total 1060 ml Output Total 1750 ml Balance -690 ml Result Diagram: 07/17/17 0430 07/17/17 0430 Laboratory Results Laboratory Tests Test 07/17/17 04:30 White Blood Count 2.9 TH/MM3 Red Blood Count 2.84 MIL/MM3 Hemoglobin 8.1 GM/DL Hematocrit 23.3 % Mean Corpuscular Volume 82.1 FL Mean Corpuscular Hemoglobin 28.6 PG Mean Corpuscular Hemoglobin Concent 34.8 % Red Cell Distribution Width 16.4 % Platelet Count 56 TH/MM3 Mean Platelet Volume 7.3 FL Neutrophils (%) (Auto) 67.8 % Lymphocytes (%) (Auto) 14.4 % Monocytes (%) (Auto) 12.4 % Eosinophils (%) (Auto) 5.3 % Basophils (%) (Auto) 0.1 % Neutrophils # (Auto) 2.0 TH/MM3 Lymphocytes # (Auto) 0.4 TH/MM3 Monocytes # (Auto) 0.4 TH/MM3 Eosinophils # (Auto) 0.2 TH/MM3 Basophils # (Auto) 0.0 TH/MM3 CBC Comment AUTO DIFF Differential Total Cells Counted 100 Neutrophils % (Manual) 61 % Band Neutrophils % 7 % Lymphocytes % 19 % Monocytes % 6 % Eosinophils % 7 % Neutrophils # (Manual) 2.0 TH/MM3 Differential Comment FINAL DIFF MANUAL Toxic Granulation 2+ Platelet Estimate LOW Platelet Morphology Comment NORMAL Blood Urea Nitrogen 7 MG/DL Creatinine 0.61 MG/DL Random Glucose 131 MG/DL Calcium Level 8.1 MG/DL Sodium Level 141 MEQ/L Potassium Level 3.5 MEQ/L Chloride Level 108 MEQ/L Carbon Dioxide Level 24.4 MEQ/L Anion Gap 9 MEQ/L Estimat Glomerular Filtration Rate 97 ML/MIN Administered Medications Medications (Trade) Dose Ordered Sig/Prabha Route PRN Reason Start Time Stop Time Status Last Admin Dose Admin Sodium Chloride 1,000 ml @ 100 mls/hr Q10H IV 07/12/17 02:20 07/17/17 04:27 Sodium Chloride (NS Flush) 2 ml UNSCH PRN IV FLUSH FLUSH AFTER USING IV ACCESS 07/12/17 02:30 07/12/17 15:53 Sodium Chloride (NS Flush) 2 ml BID IV FLUSH 07/12/17 09:00 07/16/17 09:02 Acetaminophen (Tylenol) 650 mg Q6H PRN PO FEVER/PAIN SCALE 1 TO 2 07/12/17 02:30 07/16/17 17:49 Acetaminophen/ Hydrocodone Bitart (Occidental 5-325 Mg) 1 tab Q4H PRN PO PAIN SCALE 3 TO 5 07/12/17 02:30 07/17/17 06:25 Senna/Docusate Sodium (Katheryn-Colace) 1 tab BID PO 07/12/17 09:00 07/17/17 08:38 Magnesium Hydroxide (Milk Of Magnesia Liq) 30 ml Q12H PRN PO Mild constipation 07/12/17 02:30 07/14/17 09:01 Fluticasone Propionate (Flonase Abhi Spr) 1 spray DAILY EACH NARE 07/13/17 09:00 07/16/17 09:02 Meclizine HCl (Antivert) 25 mg Q6H PRN PO VERTIGO 07/12/17 12:30 07/17/17 08:38 Multivitamins (Theragran) 1 tab DAILY PO 07/13/17 09:00 07/17/17 08:38 Heparin Sodium (Porcine) (Heparin Inj) 5,000 units Q8HR SQ 07/12/17 22:00 Future Hold 07/13/17 06:00 Petrolatum/Zinc Oxide (Sensi-Care Protective Barrier Oint) 1 applic DAILY TOPICAL 07/13/17 09:00 07/16/17 09:03 Levofloxacin (Levaquin) 750 mg DAILY PO 07/13/17 13:00 07/17/17 08:38 Hydrocortisone (Hydrocortisone 1% Cream) 1 applic BID TOPICAL 07/13/17 21:00 07/16/17 21:33 Diphenhydramine HCl (Benadryl) 25 mg Q6H PRN PO ITCHING 07/15/17 16:15 07/15/17 17:40 Ondansetron HCl (Zofran Inj) 4 mg Q4H PRN IVP NAUSEA OR VOMITING 07/15/17 17:45 07/17/17 06:25 Acetaminophen (Tylenol) 650 mg Q4H PRN PO SEE LABEL COMMENTS 07/16/17 10:15 07/16/17 13:25 Diphenhydramine HCl (Benadryl) 25 mg Q4H PRN PO SEE LABEL COMMENTS 07/16/17 10:15 07/16/17 13:25 Folic Acid (Folate) 1 mg DAILY PO 07/17/17 09:00 07/17/17 08:38 Cyanocobalamin (Vitamin B12) 1,000 mcg DAILY PO 07/17/17 09:00 07/17/17 08:38 Objective Remarks GENERAL: Elderly female resting in bed in no obvious distress SKIN: Diffuse rash to chest, neck and face. HEAD: Normocephalic. EYES: No injection or drainage. NECK: Supple, trachea midline. CARDIOVASCULAR: Regular rate and rhythm without murmurs. RESPIRATORY: Clear posteriorly. Breathing unlabored at rest. : Germain catheter in place with clear derek urine. GASTROINTESTINAL: Abdomen soft, non-tender, nondistended. EXTREMITIES: No cyanosis, or edema. MUSCULOSKELETAL: Adequate muscle tone. NEUROLOGICAL: No obvious focal deficit. Awake, alert, and oriented x3. Assessment/Plan Problem List: (1) Febrile neutropenia ICD Codes: D70.9 - Neutropenia, unspecified; R50.81 - Fever presenting with conditions classified elsewhere Plan: -- Febrile neutropenia --Urine culture ++Pseudomonas --Blood cultures no growth --on vancomycin, Azactam, Levaquin Patient received Alimta on 07/07/17. 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 status post right nephrectomy --previously treated with cisplatin and gemcitabine x 3 cycles. She reports that this was poorly tolerated, requiring hospital admission at the [facility]. She is currently on a medication, which I believe may be atezolizumab, under the direction of oncologist at [facility]. Plan 1. Dr De La Torre awaiting return call from Dr Cordoba (pt's oncologist at [facility]) to discuss possible future treatment versus comfort measures/ best supportive care. The patient reports she definitely does not want to travel back to the [facility] anymore. 2. Afebrile overnight and blood cultures negative 4 days. Continue to monitor 3. Monitor CBC 4. Agree with IV Solu-Medrol for worsening rash Discussed with Dr. Bradley Attending Statement The exam, history, and the medical decision-making described in the above note were completed with the assistance of the mid-level provider. I reviewed and agree with the findings presented. I attest that I had a [id number] encounter with the patient on the same day, and personally performed and documented my assessment and findings in the medical record. 71 yoF with metastatic TCC of the ureter s/p treatment with progression on cisplatin/ gemcitabine and atezolizumab. She received her first cycle of alimta therapy on 07/07. Discussed her case with her primary oncologist at [facility] Dr. Cordoba. Expected response to Alimta is 10%. Prior to initiation of third line of therapy he offered hospice/palliative care vs continuing with aggressive therapy. She elected for chemotherapy. She now has metastatic disease to her bones. She is currently being treated with broad spectrum antibiotics for febrile neutropenia. Neutropenia resolving. Cytopenias due to chemotherapy. Continue to follow, continue supportive care. Home with hospice would be appropriate. She has an appointment scheduled on 07/28/[address] Cordoba. Shasha Kim July 17, 2017 11:14 Shawnee De La Torre MD July 17, 2017 12:50
--- NOTE | 2017-07-17 13:08 | HHI.HCPN ---
Reason for visit a. To assist with evaluation and management of symptoms including:Pain, nausea, generalized weakness, debility b. To assist medical decision maker(s) with: better understanding of current medical conditions; weighing benefits/burdens of medical treatment options; making medical treatment decisions. Subjective/Interval History Follow up medically necessary for symptom management and further clarification of goals of care. Patient is in bed in her room. Patient`s daughter Josefina at bedside. Patient endorsing vertigo, nausea/vomiting, generalized weakness and denies pain. Patient reports that she vomited numerous times last night. Managed with Zofran. Patient also was given Meclizine 25mg for vertigo, last dose on 07/17. Patient`s rash has extended to her neck and face. Hydrocortisone cream ordered for rash. Laboratory workup today revealing WBC2.9, Hgb 8.1, Hct 23.3, plt count 56. Patient no longer wants to continue chemotherapy given that she is not tolerating it well. She states that, "she is done". She thinks she will not be able to tolerate the drive to [facility] anymore. Reintroduced hospice philosophy and benefits. Patient does not want hospice due to a "bad experience" through a friend. Patient`s goals at this time appear comfort oriented but she wants to be able to come to the hospital whenever she wants. Explained further to patient services offered by hospice and that providers are available to give orders ensuring that patient is kept comfortable. She hopes to continue following with her PCP and find a local oncologist. Case discussed with Trina Gary, Oncology OCCUPATIONAL THERAPIST AIDE and bedside . Family/friend interactions Patient`s daughter Josefina at bedside. . Advance Directives Living Will: Completed, but not made available Advance Directive Specifics Health Care Surrogate(s): [facility]- Spouse- Damian Castro- [phone] (home)/[phone](cell) Alternate [facility]Ann, Hkajytu-[phone] . Objective Vital Signs Date Time Temp Pulse Resp B/P (MAP) Pulse Ox O2 Delivery O2 Flow Rate FiO2 07/17/17 08:30 98.2 84 16 116/63 (80) 07/17/17 04:25 97.7 82 16 132/72 (92) 96 07/17/17 04:00 66 07/17/17 00:51 97.6 80 17 146/81 (102) 97 07/17/17 00:00 69 07/16/17 21:19 97.8 86 18 165/80 (108) 96 07/16/17 20:00 84 07/16/17 16:58 100.4 97 18 125/66 96 07/16/17 15:00 89 07/16/17 14:36 99.4 92 18 118/72 99 07/16/17 14:13 99.2 95 18 132/69 97 Intake & Output 07/17/17 07/17/17 07:00 19:00 Intake Total 1300 ml Output Total 2950 ml Balance -1650 ml Intake Oral 1200 ml IV Total 100 ml Output Urine Total 2950 ml Physical Exam CONSTITUTIONAL/GENERAL: This is an adequately nourished patient endorsing vertigo, nausea and denies pain. TUBES/LINES/DRAINS: [id number] right chest wall, Germain catheter, SCDs SKIN: Erythematous rash to right chest wall, neck, face and upper back. Ecchymoses on upper extremities. No wounds seen anteriorly. Not diaphoretic. HEAD: Atraumatic. Normocephalic. EYES: Pupils equal and round and reactive. Extraocular motions intact. No scleral icterus. No injection or drainage. Fundi not examined. ENT: Hearing grossly normal. Nose without bleeding or purulent drainage. Moist oral mucosa NECK: Trachea midline. Supple, nontender. CARDIOVASCULAR: S1, S2 normal; no murmurs, gallops, or rubs. No JVD. Peripheral pulses symmetric. RESPIRATORY/CHEST: Symmetric, unlabored respirations. Diminished in the bases. No wheezes, rales, or rhonchi. GASTROINTESTINAL: Abdomen soft, non-tender, nondistended. No guarding. Bowel sounds present. GENITOURINARY: Without palpable bladder distension. Germain catheter in place. MUSCULOSKELETAL: Extremities without clubbing, cyanosis, or edema. No calf tenderness. No mottling or clubbing. NEUROLOGICAL: Awake and alert. Motor and sensory grossly within normal limits. Follows commands. Cognitively sharp. Moves all extremities. PSYCHIATRIC: No obvious anxiety/depression. no apparent hallucinations or other psychotic thought process. Diagnostic Tests Laboratory Laboratory Tests Test 07/15/17 04:50 07/16/17 05:30 07/17/17 04:30 White Blood Count 2.2 TH/MM3 (4.0-11.0) 2.1 TH/MM3 (4.0-11.0) 2.9 TH/MM3 (4.0-11.0) Red Blood Count 2.41 MIL/MM3 (4.00-5.30) 2.35 MIL/MM3 (4.00-5.30) 2.84 MIL/MM3 (4.00-5.30) Hemoglobin 7.2 GM/DL (11.6-15.3) 6.9 GM/DL (11.6-15.3) 8.1 GM/DL (11.6-15.3) Hematocrit 20.4 % (35.0-46.0) 20.0 % (35.0-46.0) 23.3 % (35.0-46.0) Mean Corpuscular Volume 84.9 FL (80.0-100.0) 85.4 FL (80.0-100.0) 82.1 FL (80.0-100.0) Mean Corpuscular Hemoglobin 29.7 PG (27.0-34.0) 29.4 PG (27.0-34.0) 28.6 PG (27.0-34.0) Mean Corpuscular Hemoglobin Concent 35.0 % (32.0-36.0) 34.4 % (32.0-36.0) 34.8 % (32.0-36.0) Red Cell Distribution Width 14.3 % (11.6-17.2) 14.3 % (11.6-17.2) 16.4 % (11.6-17.2) Platelet Count 83 TH/MM3 (150-450) 62 TH/MM3 (150-450) 56 TH/MM3 (150-450) Mean Platelet Volume 6.2 FL (7.0-11.0) 6.7 FL (7.0-11.0) 7.3 FL (7.0-11.0) CBC Comment AUTO DIFF AUTO DIFF AUTO DIFF Differential Total Cells Counted 100 100 100 Neutrophils % (Manual) 61 % (16-70) 64 % (16-70) 61 % (16-70) Lymphocytes % 21 % (9-44) 17 % (9-44) 19 % (9-44) Monocytes % 13 % (0-8) 14 % (0-8) 6 % (0-8) Eosinophils % 5 % (0-4) 1 % (0-4) 7 % (0-4) Neutrophils # (Manual) 1.3 TH/MM3 (1.8-7.7) 1.4 TH/MM3 (1.8-7.7) 2.0 TH/MM3 (1.8-7.7) Differential Comment FINAL DIFF MANUAL FINAL DIFF MANUAL FINAL DIFF MANUAL Dohle Bodies PRESENT (NONE SEEN) Platelet Estimate LOW (NORMAL) LOW (NORMAL) LOW (NORMAL) Platelet Morphology Comment NORMAL (NORMAL) NORMAL (NORMAL) NORMAL (NORMAL) Red Cell Morphology Comment NORMAL (NORMAL) Blood Urea Nitrogen 9 MG/DL (7-18) 7 MG/DL (7-18) 7 MG/DL (7-18) Creatinine 0.70 MG/DL (0.50-1.00) 0.71 MG/DL (0.50-1.00) 0.61 MG/DL (0.50-1.00) Random Glucose 102 MG/DL (74-106) 106 MG/DL (74-106) 131 MG/DL (74-106) Total Protein 5.1 GM/DL (6.4-8.2) Albumin 1.6 GM/DL (3.4-5.0) Calcium Level 7.7 MG/DL (8.5-10.1) 7.8 MG/DL (8.5-10.1) 8.1 MG/DL (8.5-10.1) Alkaline Phosphatase 105 U/L (45-117) Aspartate Amino Transf (AST/SGOT) 22 U/L (15-37) Alanine Aminotransferase (ALT/SGPT) 14 U/L (10-53) Total Bilirubin 0.4 MG/DL (0.2-1.0) Sodium Level 138 MEQ/L (136-145) 140 MEQ/L (136-145) 141 MEQ/L (136-145) Potassium Level 3.4 MEQ/L (3.5-5.1) 3.6 MEQ/L (3.5-5.1) 3.5 MEQ/L (3.5-5.1) Chloride Level 108 MEQ/L (98-107) 110 MEQ/L (98-107) 108 MEQ/L (98-107) Carbon Dioxide Level 22.8 MEQ/L (21.0-32.0) 23.9 MEQ/L (21.0-32.0) 24.4 MEQ/L (21.0-32.0) Anion Gap 7 MEQ/L (5-15) 6 MEQ/L (5-15) 9 MEQ/L (5-15) Estimat Glomerular Filtration Rate 82 ML/MIN (>89) 81 ML/MIN (>89) 97 ML/MIN (>89) Neutrophils (%) (Auto) 51.3 % (16.0-70.0) 67.8 % (16.0-70.0) Lymphocytes (%) (Auto) 23.3 % (9.0-44.0) 14.4 % (9.0-44.0) Monocytes (%) (Auto) 17.6 % (0.0-8.0) 12.4 % (0.0-8.0) Eosinophils (%) (Auto) 7.7 % (0.0-4.0) 5.3 % (0.0-4.0) Basophils (%) (Auto) 0.1 % (0.0-2.0) 0.1 % (0.0-2.0) Neutrophils # (Auto) 1.1 TH/MM3 (1.8-7.7) 2.0 TH/MM3 (1.8-7.7) Lymphocytes # (Auto) 0.5 TH/MM3 (1.0-4.8) 0.4 TH/MM3 (1.0-4.8) Monocytes # (Auto) 0.4 TH/MM3 (0-0.9) 0.4 TH/MM3 (0-0.9) Eosinophils # (Auto) 0.2 TH/MM3 (0-0.4) 0.2 TH/MM3 (0-0.4) Basophils # (Auto) 0.0 TH/MM3 (0-0.2) 0.0 TH/MM3 (0-0.2) Band Neutrophils % 3 % (0-6) 7 % (0-6) Blastocytes 1 % (0-0) Toxic Granulation 2+ (NORMAL) Blood Smear Pathologist Review Result Diagram: 5/3/18 0430 5/3/18 0430 Assessment and Plan Disease Oriented Problem List: (1) Transitional cell carcinoma of ureter (2) Breast CA (3) Febrile neutropenia (4) UTI (urinary tract infection) (5) Depression (6) Irritable bowel syndrome Symptom Scale: (1) Pain Comment: Complaining of pain to right knee. NM bone scan revealed multifocal high of increased radiotracer activity suggestive of metastatic disease involving right distal humerus, right clavicle, right scapula, bilateral distal femur, and right posterior ribs. Patient currently undergoing chemotherapy. . (2) Generalized weakness 0-10 Scale: Unable to quantify Comment: Patient is currently undergoing chemotherapy and has low hemoglobin . (3) Nausea 0-10 Scale: Unable to quantify Comment: Patient currently on chemotherapy, and is been complaining of nausea. . (4) Debility 0-10 Scale: Unable to quantify Comment: Progressive . Pertinent Non-Medical Issues Psychosocial:Patient was born and raised in [place], [place]. She moved to [place] in May of 1984. Patient is to a of 46 years. Patient has worked for [employer] in the [employer] Department. 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 She has 1 grandson. Patient enjoys boating and camping with her family. Spiritual: Patient is Jain-she has a local friend who visits and is a Acoustic Intelligence Specialist. Legal: Patient is completed a living will- will bring copy from home Ethical issues impacting care: None identified at this time . Important Contacts Spouse-Damian Castro -[phone] (home)/[phone](other) Daughter-Matthew Clarke-[phone] . 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 Patient presented to the ER by ambulance on 07/11/17 complaining of generalized malaise and fever with a temperature of 101F. Patient is currently on chemotherapy for breast cancer and she follows at [facility]. Clinical course complicated with possible metastatic disease to bone, urinary tract infection, and febrile neutropenia. Given ongoing comorbidities patient remains at high risk for further complications, deterioration and decline. . Code Status: No Code Plan PLAN: Legal decision maker: Patient is able to participate in medical decision making. In the event that patient is incapacitated, she has designated her Damian Castro as her healthcare surrogate and her daughter Tricia Castro as her alternate healthcare surrogate. Goals: Patient no longer wants chemotherapy but does not want to transition to comfort care through hospice services due to a bad experience in the past. CODE STATUS: No code DNR/DNI Patient no longer wants to continue chemotherapy given that she is not tolerating it well. She states that, "she is done". She thinks she will not be able to tolerate the drive to [facility] anymore. Reintroduced hospice philosophy and benefits. Patient does not want hospice due to a "bad experience" through a friend. Patient`s goals at this time appear comfort oriented but she wants to be able to come to the hospital whenever she wants. Explained further to patient services offered by hospice and that providers are available to give orders ensuring that patient is kept comfortable. She hopes to continue following with her PCP and find a local oncologist. SYMPTOMS: * Pain: Patient complaining of pain to right knee. NM bone scan revealed multifocal high of increased radiotracer activity suggestive of metastatic disease involving right distal humerus, right clavicle, right scapula, bilateral distal femur, and right posterior ribs. Patient currently undergoing chemotherapy. Patient his hydrocodone/acetaminophen 5/325 q 4 hrs prn. Pain managed with hydrocodone/acetaminophen 5/325 q 4 hrs prn. Patient required 6 as needed doses in the past 24 hours. Received 1 time dose of Morphine sulfate this afternoon. Recommending increasing Hydrocodone to 7.5 mg q 4 hrs prn if patient`s pain continues to increase. 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 Complaining of nausea. Nausea managed with ondansetron 4 mg every 6 hrs prn. Patient required x6 prn doses in the past 24 hours. Currently denies nausea, patient reports that she was able to eat most of her breakfast today. * Generalized weakness: Anemia secondary to chemotherapy. 1 unit pRBC transfused 5/2 for Hgb 6.9. Hgb Improved today. Continue to monitor hemoglobin. * Debility: Progressive. 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 Patient currently using a rolling walker. Patient may benefit from physical therapy if goals remain aggressive. Palliative care will continue to follow the patient during hospital course as condition evolves, to assist patient/decision-maker with understanding of their medical conditions, weighing benefits/burdens of treatment options, for clarification of goals of treatment. Additionally will assist with any symptoms of palliative concern Attestation To help prompt me to consider important information that might be impacting today's encounter and assessment, information from prior notes written by myself or my colleagues may have been "brought forward" into today's note. My signature on this note, however, is an attestation that I personally performed the exam, history, and/or decision-making noted today, and, unless otherwise indicated, the interactions with patient, family, and staff as well as the review of records all occurred today. I also attest that the listed assessment and stated plan reflect my best clinical judgment today based on the combination of historical information, prior notes, and today's exam/ interactions. When time spent is documented, it refers only to time spent today by the signer, or if indicated, combined time spent today by collaborating physician/nurse practitioner. Feliberto Freeman July 17, 2017 13:08
[2017-07-17 14:09] LABS: INTERNATIONAL NORMALIZED RATIO 1.2 RATIO; PROTHROMBIN TIME - PATIENT 11.8 SEC (9.8-11.6)
[2017-07-17 14:21] LABS: FOLATE GREATER THAN 20.0 NG/ML (3.1-17.5)
[2017-07-17] MEDS ORDERED: methylPREDNISolone SOD SUCC 125 MG/2 ML VIAL IV PUSH ONE (15:00)
[2017-07-17] MEDS: MAGNESIUM HYDROXIDE SUSP 30 ML CUP PO PRN (18:38)
[2017-07-18] VITALS (9 sets, daily range): BP systolic 128–153; BP diastolic 70–84; PULSE 66–84; RESP 16; TEMP 97.4–97.8; O2SAT 93–97
[2017-07-18 06:17] LABS: AUTOMATED NEUTROPHIL # 2.9 TH/MM3 (1.8-7.7); BASOPHIL % 0.1 % (0.0-2.0); EOSINOPHIL % 0.1 % (0.0-4.0); HEMATOCRIT 29.1 % (35.0-46.0); HEMOGLOBIN 10.2 GM/DL (11.6-15.3); LYMPHOCYTE # 0.5 TH/MM3 (1.0-4.8); MEAN CELL VOLUME 81.4 FL (80.0-100.0); MEAN CORPUSCULAR HEMOGLOBIN 28.5 PG (27.0-34.0); MEAN PLATELET VOLUME 7.8 FL (7.0-11.0); MONO % 2.4 % (0.0-8.0); MONOCYTE # 0.1 TH/MM3 (0-0.9); NEUT % 84.4 % (16.0-70.0); PLATELET COUNT 57 TH/MM3 (150-450); RED BLOOD COUNT 3.57 MIL/MM3 (4.00-5.30); RED CELL DISTRIBUTION WIDTH 15.9 % (11.6-17.2); WHITE BLOOD COUNT 3.5 TH/MM3 (4.0-11.0)
[2017-07-18] MEDS: ONDANSETRON HCL 4 MG/2 ML VIAL IVP PRN ×3 (07:19→23:10)
[2017-07-18] MEDS: ACETAMINOPHEN/HYDROcodone 325 MG/5 MG TAB PO PRN ×3 (07:19→23:10)
--- NOTE | 2017-07-18 07:31 | HHI.PR ---
Subjective Remarks Feels better. Much improved significantly. No fever or chills. No urinary complaints. No nausea vomiting no diarrhea or constipation. Eating fairly well. Says she feels much better and she wants to pursue further treatment in [place] with her oncology doctor. Objective Vitals Vital Signs Date Time Temp Pulse Resp B/P (MAP) Pulse Ox O2 Delivery O2 Flow Rate FiO2 07/18/17 05:37 97.4 78 16 146/70 (95) 95 07/18/17 01:05 97.7 75 16 143/74 (97) 93 07/17/17 20:42 98.4 75 16 138/80 (99) 95 07/17/17 16:40 98.7 78 16 136/73 (94) 96 07/17/17 12:15 98.4 76 16 127/70 (89) 99 07/17/17 08:30 98.2 84 16 116/63 (80) I/O 07/17/17 07/17/17 07/17/17 07/18/17 07/18/17 07/18/17 07:00 15:00 23:00 07:00 15:00 23:00 Intake Total 1060 ml 1829 ml 1430 ml Output Total 1750 ml 1450 ml Balance -690 ml 1829 ml -20 ml Intake Oral 960 ml 430 ml IV Total 100 ml 1829 ml 1000 ml Output Urine Total 1750 ml 1450 ml Result Diagram: 07/18/17 0550 07/17/17 0430 Imaging Last Impressions Chest X-Ray 07/12/17 0000 Signed Impressions: Service Date/Time: Wednesday, July 12, 2017 01:19 - CONCLUSION: The lungs are clear. Eleazar Mora MD Objective Remarks GENERAL: Awake and alert. Laying in bed. Family at bedside SKIN: + Erythematous macular rash over right anterior chest wall/shoulder, worsening, now on the neck, scalp and forehead. CARDIOVASCULAR: Regular rate and rhythm. No obvious murmurs to auscultation. RESPIRATORY: No wheezing. Clear to auscultation. Breath sounds equal bilaterally. GASTROINTESTINAL: Abdomen soft, non-tender, nondistended. BS normal. A/P Problem List: (1) Fever ICD Code: R50.9 - Fever, unspecified (2) UTI (urinary tract infection) ICD Code: N39.0 - Urinary tract infection, site not specified (3) Breast CA ICD Code: C50.919 - Malignant neoplasm of unspecified site of unspecified female breast Assessment and Plan 71-year-old female with a PMH of HTN, Hyperlipidemia, Depression, IBS and Breast CA on Chemo who presented to the ER with complaints of generalized malaise and fever. Neutropenic fever +immunocompromised on chemotherapy White count improved CXR without acute findings. Blood cultures with no growth x 4 days. Flu antigen neg.Legionella and pneumococcal antigen negative. Urine culture growing Pseudomonas Oncology following. Appreciate assistance. s/p vancomycin, aztreonam, and continue Levaquin per IDs recommendations. Monitor rash as it could be reaction to antibiotic Repeat blood cultures negative to date. Continue to monitor for fevers. Continue IV hydration, encourage PO Anemia, secondary to chemotherapy Thrombocytopenia Patient has been transfused. Monitor H&H No signs of active bleeding -Hold Heparin -Monitor for any evidence of bleeding Rash noted over anterior chest/neck and face/scalp -ID following. Likely allergic reaction . the rash is worsening. Will give one dose of Solu-Medrol on the 125 mg 1 time. Continue prednisone 50 mg daily for 4-5 days. Rash improved significantly Pseudomonal UTI: UA with mod leukocytes, 7 WBCs, occ bacteria. Patient has chronic indwelling herrera. Denies any c/o abdominal pain. Urine culture positive for Pseudomonas pansensitive. Continue antibiotics Right ureter CA, s/p open right nephroureterectomy with excision of bladder cuff : chronic indwelling herrera. Follows with Dr. Lopez. Has appt Friday to have herrera changed. Difficult Herrera exchange per patient report, only has one nurse at Dr. Lopez's office who is able to do Breast CA s/p mastectomy: follows at [place], currently on chemotherapy, outpatient follow up at [place] as scheduled to resume treatment. -Continue pain management -Continue with PT/OT -Consult palliative care-I did speak with palliative care and patient would like to be a DNR CKD Creatinine appears to near baseline. Monitor. Avoid nephrotoxic agent Hx of DM: not on any diabetic meds HgbA1c 5.3 Constipation, Bowel regimen in place DVT Prophylaxis: SCD Discussed with the patient, family at bedside, nurse, hematology paralegal specialist Improved significantly. DC home in stable condition to follow up as OP with PCP and consultants. Patient says she wants to pursue aggressive treatment and will follow up with her oncology Dr in [place], pt. has already an appointment. Lillie Bradley MD July 18, 2017 07:31
[2017-07-18] MEDS ORDERED: PRED50 PO (07:41)
[2017-07-18] MEDS ORDERED: LEVA750T9 PO (07:41)
--- NOTE | 2017-07-18 07:41 | HHI.DS ---
Discharge Summary Admission Date Jul 14, 2017 at 09:33 Discharge Date: July 18, 2017 Admitting Diagnosis fever and on CHEMO immunosuppressed (1) Fever ICD Code: R50.9 - Fever, unspecified (2) UTI (urinary tract infection) ICD Code: N39.0 - Urinary tract infection, site not specified (3) Breast CA ICD Code: C50.919 - Malignant neoplasm of unspecified site of unspecified female breast Procedures none Brief History - From Admission This is a 71-year-old female with a PMH of HTN, Hyperlipidemia, Depression, IBS and Breast CA on Chemo who presented to the ER with complaints of generalized malaise and fever. Pt states she is currently on chemotherapy for Breast CA, following at [facility]. Had outpatient PET Scan today and felt weak/tired after imaging, then had febrile episode at home w/ Temp 101. States she was about to get into the car to go to [place] when she had sudden weakness w/ near syncope at which point she was brought here. Denies abdominal pain, nausea, vomiting or diarrhea. No sick contacts. On arrival, BP 109/53, HR 109, O2 sat 96% on RA, Temp 99.7. CBC unremarkable except for elevated neutrophil count. Creatinine 1.05, previously 1.30 on 01/02/2017. Troponin negative. Lactic Acid normal. UA with moderate LE, bacteriuria. CXR with no acute findings. S/ p Blood/Urine cultures, Vanc/Cefepime in ER. CBC/BMP: 07/18/17 0550 07/17/17 0430 Significant Findings Laboratory Tests Test 07/16/17 05:30 07/17/17 04:30 07/17/17 13:14 07/18/17 05:50 White Blood Count 2.1 TH/MM3 (4.0-11.0) 2.9 TH/MM3 (4.0-11.0) 3.5 TH/MM3 (4.0-11.0) Red Blood Count 2.35 MIL/MM3 (4.00-5.30) 2.84 MIL/MM3 (4.00-5.30) 3.57 MIL/MM3 (4.00-5.30) Hemoglobin 6.9 GM/DL (11.6-15.3) 8.1 GM/DL (11.6-15.3) 10.2 GM/DL (11.6-15.3) Hematocrit 20.0 % (35.0-46.0) 23.3 % (35.0-46.0) 29.1 % (35.0-46.0) Platelet Count 62 TH/MM3 (150-450) 56 TH/MM3 (150-450) 57 TH/MM3 (150-450) Mean Platelet Volume 6.7 FL (7.0-11.0) Monocytes (%) (Auto) 17.6 % (0.0-8.0) 12.4 % (0.0-8.0) Eosinophils (%) (Auto) 7.7 % (0.0-4.0) 5.3 % (0.0-4.0) Neutrophils # (Auto) 1.1 TH/MM3 (1.8-7.7) Lymphocytes # (Auto) 0.5 TH/MM3 (1.0-4.8) 0.4 TH/MM3 (1.0-4.8) 0.5 TH/MM3 (1.0-4.8) Monocytes % 14 % (0-8) Neutrophils # (Manual) 1.4 TH/MM3 (1.8-7.7) Blastocytes 1 % (0-0) Platelet Estimate LOW (NORMAL) LOW (NORMAL) Calcium Level 7.8 MG/DL (8.5-10.1) 8.1 MG/DL (8.5-10.1) Chloride Level 110 MEQ/L (98-107) 108 MEQ/L (98-107) Estimat Glomerular Filtration Rate 81 ML/MIN (>89) Band Neutrophils % 7 % (0-6) Eosinophils % 7 % (0-4) Toxic Granulation 2+ (NORMAL) Random Glucose 131 MG/DL (74-106) Haptoglobin 327 MG/DL (30-200) Prothrombin Time 11.8 SEC (9.8-11.6) Fibrinogen 464 mg/dL (227-377) Folate GREATER THAN 20.0 NG/ML Neutrophils (%) (Auto) 84.4 % (16.0-70.0) Imaging Last Impressions Chest X-Ray 07/12/17 0000 Signed Impressions: Service Date/Time: Wednesday, July 12, 2017 01:19 - CONCLUSION: The lungs are clear. Eleazar Mora MD PE at Discharge GENERAL: Awake and alert. Laying in bed. Family at bedside SKIN: + Erythematous macular rash over right anterior chest wall/shoulder, worsening, now on the neck, scalp and forehead. CARDIOVASCULAR: Regular rate and rhythm. No obvious murmurs to auscultation. RESPIRATORY: No wheezing. Clear to auscultation. Breath sounds equal bilaterally. GASTROINTESTINAL: Abdomen soft, non-tender, nondistended. BS normal. Hospital Course 71-year-old female with a PMH of HTN, Hyperlipidemia, Depression, IBS and Breast CA on Chemo who presented to the ER with complaints of generalized malaise and fever. Neutropenic fever +immunocompromised on chemotherapy White count improved CXR without acute findings. Blood cultures with no growth x 4 days. Flu antigen neg.Legionella and pneumococcal antigen negative. Urine culture growing Pseudomonas Oncology following. Appreciate assistance. s/p vancomycin, aztreonam, and continue Levaquin per IDs recommendations. Monitor rash as it could be reaction to antibiotic Repeat blood cultures negative to date. Continue to monitor for fevers. Continue IV hydration, encourage PO Anemia, secondary to chemotherapy Thrombocytopenia Patient has been transfused. Monitor H&H No signs of active bleeding -Hold Heparin -Monitor for any evidence of bleeding Rash noted over anterior chest/neck and face/scalp -ID following. Likely allergic reaction . the rash is worsening. Will give one dose of Solu-Medrol on the 125 mg 1 time. Continue prednisone 50 mg daily for 4-5 days. Rash improved significantly Pseudomonal UTI: UA with mod leukocytes, 7 WBCs, occ bacteria. Patient has chronic indwelling herrera. Denies any c/o abdominal pain. Urine culture positive for Pseudomonas pansensitive. Continue antibiotics Right ureter CA, s/p open right nephroureterectomy with excision of bladder cuff : chronic indwelling herrera. Follows with Dr. Lopez. Has appt Friday to have herrera changed. Difficult Herrera exchange per patient report, only has one nurse at Dr. Lopez's office who is able to do Breast CA s/p mastectomy: follows at [place], currently on chemotherapy, outpatient follow up at [place] as scheduled to resume treatment. -Continue pain management -Continue with PT/OT -Consult palliative care-I did speak with palliative care and patient would like to be a DNR CKD Creatinine appears to near baseline. Monitor. Avoid nephrotoxic agent Hx of DM: not on any diabetic meds HgbA1c 5.3 Constipation, Bowel regimen in place DVT Prophylaxis: SCD Discussed with the patient, family at bedside, nurse, hematology refund specialist Improved significantly. DC home in stable condition to follow up as OP with PCP and consultants. Patient says she wants to pursue aggressive treatment and will follow up with her oncology Dr in [place], pt. has already an appointment. Patient with very poor response to chemo and is a candidate for hospice, however she wants aggressive measures and doesn't want hospice. Pt Condition on Discharge: Stable Discharge Disposition: Discharge Home Discharge Time: > 30 minutes Discharge Instructions DIET: Follow Instructions for: As Tolerated, No Restrictions Activities you can perform: Regular-No Restrictions Follow up Referrals: Oncology - 1 Week with Shawnee De La Torre MD PCP Follow-up - 2-3 Days New Medications: Hydrocodone-Acetaminophen ([place]) 5 Mg-325 Mg Tab 1 TAB PO Q6H PRN for PAIN, #30 TAB 0 Refills Levofloxacin (Levaquin) 750 Mg Tablet 750 MG PO DAILY for Infection, #10 TAB Prednisone (Prednisone) 50 Mg Tab 50 MG PO DAILY for Rash, #4 TAB Continued Medications: Atezolizumab (Tecentriq) 1,200 Mg/20 Ml (60 Mg/Ml) Vial 1200 ML IV every 3 weeks Fish Oil-Cholecalciferol (Fish Oil + D3) 1,200-1,000 Mg-Unit Cap 1400 MG PO DAILY for Nutritional Supplement, #30 CAP 0 Refills Fluticasone Nasal [place] (Fluticasone Nasal [place]) 50 Mcg/Act Naspr 50 MCG EACH NARE DAILY for Allergy Management, #1 BOTTLE 0 Refills 50 mcg/spray Magnesium Hydroxide (Singh Milk of Magnesia) 311 Mg Chew 2 TAB CHEW DAILY PRN for INDIGESTION OR UPSET STOMACH, #1 BOTTLE 0 Refills Meclizine (Meclizine) 25 Mg Tab 25 MG PO DIRECTED PRN for VERTIGO, TAB 0 Refills Multiple Vitamin (Multiple Vitamin) 1 Tab 1 TAB PO DAILY for Nutritional Supplement, TAB 0 Refills Ondansetron (Zofran) 4 Mg Tab 4 MG PO Q12HR PRN for NAUSEA OR VOMITING, TAB 0 Refills Oxybutynin ER 24 HR (Ditropan XL 24 HR) 5 Mg Tab 5 MG PO DAILY for Bladder Spasm, #30 TAB 3 Refills Turmeric (Curcuma Longa) (Turmeric) 500 Mg Cap 500 MG PO DAILY [compazine] () Unknown Dose PO DAILY Lillie Bradley MD July 18, 2017 07:41
[2017-07-18] MEDS ORDERED: NORC5TAB PO (07:46)
[2017-07-18 07:58] LABS: OVALOCYTES 1+ (NORMAL)
[2017-07-18] MEDS: SODIUM CHLOR 0.9% 1000 ML INJ 1,000 ML IV SCH ×2 (08:00→17:45)
[2017-07-18] MEDS: LEVOFLOXACIN 750 MG TAB PO SCH (08:04)
[2017-07-18] MEDS: MECLIZINE HCL 25 MG TAB PO PRN ×3 (08:04→23:09)
[2017-07-18] MEDS: CYANOCOBALAMIN 1,000 MCG TAB PO SCH (08:04)
[2017-07-18] MEDS: DOCUSATE SODIUM 50 MG/SENNA 8.6 MG TAB PO SCH ×2 (08:04→21:23)
[2017-07-18] MEDS: predniSONE 50 MG TAB PO SCH (08:05)
[2017-07-18] MEDS: MULTIVITAMIN TAB PO SCH (08:05)
[2017-07-18] MEDS: FOLIC ACID 1 MG TAB PO SCH (08:05)
[2017-07-18] MEDS: SODIUM CHLORIDE 0.9% FLUSH 10 ML FLUSH IV FLUSH SCH ×2 (08:06→21:23)
[2017-07-18] MEDS: HYDROCORTISONE 1% CREAM 30 GM TOPICAL SCH ×2 (08:09→21:23)
[2017-07-18] MEDS: PETROLATUM 49%/ZINC OXIDE 15% 4 OUNCE TUBE TOPICAL SCH (08:09)
[2017-07-18] MEDS: FLUTICASONE PROPIONATE 50 MCG/ACT 16 GM NASAL SPRAY EACH NARE SCH (08:10)
--- NOTE | 2017-07-18 11:38 | PD.ONC.PN ---
Subjective Subjective Remarks Afebrile Pt reports she is looking forward to going home Has lots of social support ongoing at home Rash improved Objective Data Date Time Temp Pulse Resp B/P (MAP) Pulse Ox O2 Delivery O2 Flow Rate FiO2 07/18/17 08:10 97.8 78 16 143/71 (95) 96 07/18/17 05:37 97.4 78 16 146/70 (95) 95 07/18/17 04:05 66 07/18/17 01:05 97.7 75 16 143/74 (97) 93 07/18/17 00:38 75 07/17/17 20:42 98.4 75 16 138/80 (99) 95 07/17/17 20:05 84 07/17/17 16:40 98.7 78 16 136/73 (94) 96 07/17/17 12:15 98.4 76 16 127/70 (89) 99 07/18/17 07/18/17 07/18/17 07:00 15:00 23:00 Intake Total 720 ml Output Total 1900 ml Balance -1180 ml Result Diagram: 07/18/17 0550 07/17/17 0430 Laboratory Results Laboratory Tests Test 07/17/17 13:14 07/18/17 05:50 Haptoglobin 327 MG/DL Prothrombin Time 11.8 SEC Prothromb Time International Ratio 1.2 RATIO Activated Partial Thromboplast Time 28.5 SEC Fibrinogen 464 mg/dL Lactate Dehydrogenase 197 U/L Folate GREATER THAN 20.0 NG/ML White Blood Count 3.5 TH/MM3 Red Blood Count 3.57 MIL/MM3 Hemoglobin 10.2 GM/DL Hematocrit 29.1 % Mean Corpuscular Volume 81.4 FL Mean Corpuscular Hemoglobin 28.5 PG Mean Corpuscular Hemoglobin Concent 35.0 % Red Cell Distribution Width 15.9 % Platelet Count 57 TH/MM3 Mean Platelet Volume 7.8 FL Neutrophils (%) (Auto) 84.4 % Lymphocytes (%) (Auto) 13.0 % Monocytes (%) (Auto) 2.4 % Eosinophils (%) (Auto) 0.1 % Basophils (%) (Auto) 0.1 % Neutrophils # (Auto) 2.9 TH/MM3 Lymphocytes # (Auto) 0.5 TH/MM3 Monocytes # (Auto) 0.1 TH/MM3 Eosinophils # (Auto) 0.0 TH/MM3 Basophils # (Auto) 0.0 TH/MM3 CBC Comment AUTO DIFF Differential Comment AUTO DIFF CONFIRMED Platelet Estimate LOW Platelet Morphology Comment NORMAL Ovalocytes 1+ Administered Medications Medications (Trade) Dose Ordered Sig/Prabha Route PRN Reason Start Time Stop Time Status Last Admin Dose Admin Sodium Chloride 1,000 ml @ 100 mls/hr Q10H IV 07/12/17 02:20 07/18/17 08:00 Sodium Chloride (NS Flush) 2 ml UNSCH PRN IV FLUSH FLUSH AFTER USING IV ACCESS 07/12/17 02:30 07/12/17 15:53 Sodium Chloride (NS Flush) 2 ml BID IV FLUSH 07/12/17 09:00 07/16/17 09:02 Acetaminophen (Tylenol) 650 mg Q6H PRN PO FEVER/PAIN SCALE 1 TO 2 07/12/17 02:30 07/16/17 17:49 Acetaminophen/ Hydrocodone Bitart ([place] 5-325 Mg) 1 tab Q4H PRN PO PAIN SCALE 3 TO 5 07/12/17 02:30 07/18/17 07:19 Senna/Docusate Sodium (Katheryn-Colace) 1 tab BID PO 07/12/17 09:00 07/18/17 08:04 Magnesium Hydroxide (Milk Of Yeni Lihiral) 30 ml Q12H PRN PO Mild constipation 07/12/17 02:30 07/17/17 18:38 Fluticasone Propionate (Flonase Abhi Spr) 1 spray DAILY EACH NARE 07/13/17 09:00 07/18/17 08:10 Meclizine HCl (Antivert) 25 mg Q6H PRN PO VERTIGO 07/12/17 12:30 07/18/17 08:04 Multivitamins (Theragran) 1 tab DAILY PO 07/13/17 09:00 07/18/17 08:05 Heparin Sodium (Porcine) (Heparin Inj) 5,000 units Q8HR SQ 07/12/17 22:00 Future Hold 07/13/17 06:00 Petrolatum/Zinc Oxide (Sensi-Care Protective Barrier Oint) 1 applic DAILY TOPICAL 07/13/17 09:00 07/18/17 08:09 Levofloxacin (Levaquin) 750 mg DAILY PO 07/13/17 13:00 07/18/17 08:04 Hydrocortisone (Hydrocortisone 1% Cream) 1 applic BID TOPICAL 07/13/17 21:00 07/18/17 08:09 Diphenhydramine HCl (Benadryl) 25 mg Q6H PRN PO ITCHING 07/15/17 16:15 07/15/17 17:40 Ondansetron HCl (Zofran Inj) 4 mg Q4H PRN IVP NAUSEA OR VOMITING 07/15/17 17:45 07/18/17 07:19 Acetaminophen (Tylenol) 650 mg Q4H PRN PO SEE LABEL COMMENTS 07/16/17 10:15 07/16/17 13:25 Diphenhydramine HCl (Benadryl) 25 mg Q4H PRN PO SEE LABEL COMMENTS 07/16/17 10:15 07/16/17 13:25 Folic Acid (Folate) 1 mg DAILY PO 07/17/17 09:00 07/18/17 08:05 Cyanocobalamin (Vitamin B12) 1,000 mcg DAILY PO 07/17/17 09:00 07/18/17 08:04 Prednisone (Deltasone) 50 mg DAILY PO 07/18/17 09:00 07/22/17 08:59 07/18/17 08:05 Objective Remarks GENERAL: Elderly female resting in bed in no obvious distress SKIN: Diffuse rash to chest, neck and face, improved. HEAD: Normocephalic. EYES: No injection or drainage. NECK: Supple, trachea midline. CARDIOVASCULAR: Regular rate and rhythm without murmurs. RESPIRATORY: Clear posteriorly. Breathing unlabored at rest. : Germain catheter in place with clear derek urine. GASTROINTESTINAL: Abdomen soft, non-tender, nondistended. EXTREMITIES: No cyanosis, or edema. MUSCULOSKELETAL: Adequate muscle tone. NEUROLOGICAL: No obvious focal deficit. Awake, alert, and oriented x3. Assessment/Plan Problem List: (1) Febrile neutropenia ICD Codes: D70.9 - Neutropenia, unspecified; R50.81 - Fever presenting with conditions classified elsewhere Plan: -- Febrile neutropenia --Urine culture ++Pseudomonas --Blood cultures no growth --on vancomycin, Azactam, Levaquin Patient received Alimta on 07/07/17. 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 status post right nephrectomy --previously treated with cisplatin and gemcitabine x 3 cycles. She reports that this was poorly tolerated, requiring hospital admission at the [facility]. She is currently on a medication, which I believe may be atezolizumab, under the direction of oncologist at [place]. Plan 1. Clear for discharge from oncology standpoint 2. The pt reports she has an appt with Dr Cordoba on July 28. She is planning to go to this to followup on possible XRT treatment to bony metastatic disease. 3. She can followup in clinic with Dr De La Torre. 4. She is a good candidate for Hospice as the Alimta offers only a 10% chance of response, however she is not interested in this at this time. Attending Statement The exam, history, and the medical decision-making described in the above note were completed with the assistance of the mid-level provider. I reviewed and agree with the findings presented. I attest that I had a [id number] encounter with the patient on the same day, and personally performed and documented my assessment and findings in the medical record. 71 yoF with metastatic TCC of the ureter. She is admitted with neutropenic fever. Clinical status is improved on antibiotics. Cultures negative. WBC, RBC improved. Rash improved s/p steroids. Due to abx vs chemotherapy. TCP not yet improving. No evidence of DIC, TMA, ITP. Most likely suspect major contributing factor cytopenia from chemotherapy. She was exposed to heparin and has been exposed in [place] past 30 days. Will check heparin plt antibodies. Shasha Kim July 18, 2017 11:37 Shawnee De La Torre MD July 19, 2017 08:57
--- NOTE | 2017-07-18 12:52 | HHI.HCPN ---
Reason for visit a. To assist with evaluation and management of symptoms including:Pain, nausea, generalized weakness, debility b. To assist medical decision maker(s) with: better understanding of current medical conditions; weighing benefits/burdens of medical treatment options; making medical treatment decisions. Subjective/Interval History Follow up medically necessary for symptom management and further clarification of goals of care. Patient sitting up in bed eating lunch. Patient endorsing good appetite. Patient is alert, oriented to self, place and situation. Patient denies pain, nausea. Pain managed with Hydrocodone/acetaminophen 5/325, patient has required x4 prn doses in the past 24hrs. Nausea managed with Ondansentron 4mg IVP, required x4 prn doses in the past 24hrs. Patient states that she still has some vertigo though tolerable. Patient's a rash to upper chest neck and face showing improvement. Patient was started on Prednisone 50mg daily. Vital signs stable, patient remains afebrile. Laboratory workup today revealing WBC 3.5, hemoglobin 10.2, hematocrit 29.1, platelet count 57. No recent imaging. Patient looking forward to be discharged home and following up with her oncologist Dr. Sheaerr at [facility] [place]. Patient is hoping that she will be offered palliative radiation therapy since they discussed that in her prior appointment with her oncologist. Patient stated that yesterday, she felt like she was going to that is why she wanted to stop everything but today she woke up feeling better and would want to continue with aggressive treatment. Case discussed with Trina Gary, Oncology TEASEL GIG OPERATOR, Dr. Bradley and bedside RN . Family/friend interactions Patient`s daughter and grandson at bedside. . Advance Directives Living Will: Completed, but not made available Advance Directive Specifics Health Care Surrogate(s): [facility]- Spouse- Damian Castro- [phone] (home)/[phone](cell) Alternate BSC-xxgcrbev-Lhzge-Ann, Arveczq-[phone] . Objective Vital Signs Date Time Temp Pulse Resp B/P (MAP) Pulse Ox O2 Delivery O2 Flow Rate FiO2 07/18/17 11:50 97.7 79 16 128/70 (89) 96 07/18/17 08:10 97.8 78 16 143/71 (95) 96 07/18/17 05:37 97.4 78 16 146/70 (95) 95 07/18/17 04:05 66 07/18/17 01:05 97.7 75 16 143/74 (97) 93 07/18/17 00:38 75 07/17/17 20:42 98.4 75 16 138/80 (99) 95 07/17/17 20:05 84 07/17/17 16:40 98.7 78 16 136/73 (94) 96 Intake & Output 07/18/17 07/18/17 07:00 19:00 Intake Total 1720 ml Output Total 1900 ml Balance -180 ml Intake Oral 720 ml IV Total 1000 ml Output Urine Total 1900 ml Physical Exam CONSTITUTIONAL/GENERAL: This is an adequately nourished, endorsing good appetite today. TUBES/LINES/DRAINS: [id number]-Vvzw right chest wall, Germain catheter, SCDs SKIN: Erythematous rash to right chest wall, neck, face and upper back. Ecchymoses on upper extremities. No wounds seen anteriorly. Not diaphoretic. EYES: Pupils equal and round and reactive. Extraocular motions intact. No scleral icterus. No injection or drainage. Fundi not examined. ENT: Hearing grossly normal. Nose without bleeding or purulent drainage. Moist oral mucosa CARDIOVASCULAR: S1, S2 normal; no murmurs, gallops, or rubs. No JVD. Peripheral pulses symmetric. RESPIRATORY/CHEST: Symmetric, unlabored respirations. Diminished in the bases. No wheezes, rales, or rhonchi. GENITOURINARY: Without palpable bladder distension. Germain catheter in place. MUSCULOSKELETAL: Extremities without clubbing, cyanosis, or edema. No calf tenderness. No mottling or clubbing. NEUROLOGICAL: Awake and alert. Follows commands. Cognitively sharp. Moves all extremities. . Diagnostic Tests Laboratory Laboratory Tests Test 07/16/17 05:30 07/17/17 04:30 07/17/17 13:14 07/18/17 05:50 White Blood Count 2.1 TH/MM3 (4.0-11.0) 2.9 TH/MM3 (4.0-11.0) 3.5 TH/MM3 (4.0-11.0) Red Blood Count 2.35 MIL/MM3 (4.00-5.30) 2.84 MIL/MM3 (4.00-5.30) 3.57 MIL/MM3 (4.00-5.30) Hemoglobin 6.9 GM/DL (11.6-15.3) 8.1 GM/DL (11.6-15.3) 10.2 GM/DL (11.6-15.3) Hematocrit 20.0 % (35.0-46.0) 23.3 % (35.0-46.0) 29.1 % (35.0-46.0) Mean Corpuscular Volume 85.4 FL (80.0-100.0) 82.1 FL (80.0-100.0) 81.4 FL (80.0-100.0) Mean Corpuscular Hemoglobin 29.4 PG (27.0-34.0) 28.6 PG (27.0-34.0) 28.5 PG (27.0-34.0) Mean Corpuscular Hemoglobin Concent 34.4 % (32.0-36.0) 34.8 % (32.0-36.0) 35.0 % (32.0-36.0) Red Cell Distribution Width 14.3 % (11.6-17.2) 16.4 % (11.6-17.2) 15.9 % (11.6-17.2) Platelet Count 62 TH/MM3 (150-450) 56 TH/MM3 (150-450) 57 TH/MM3 (150-450) Mean Platelet Volume 6.7 FL (7.0-11.0) 7.3 FL (7.0-11.0) 7.8 FL (7.0-11.0) Neutrophils (%) (Auto) 51.3 % (16.0-70.0) 67.8 % (16.0-70.0) 84.4 % (16.0-70.0) Lymphocytes (%) (Auto) 23.3 % (9.0-44.0) 14.4 % (9.0-44.0) 13.0 % (9.0-44.0) Monocytes (%) (Auto) 17.6 % (0.0-8.0) 12.4 % (0.0-8.0) 2.4 % (0.0-8.0) Eosinophils (%) (Auto) 7.7 % (0.0-4.0) 5.3 % (0.0-4.0) 0.1 % (0.0-4.0) Basophils (%) (Auto) 0.1 % (0.0-2.0) 0.1 % (0.0-2.0) 0.1 % (0.0-2.0) Neutrophils # (Auto) 1.1 TH/MM3 (1.8-7.7) 2.0 TH/MM3 (1.8-7.7) 2.9 TH/MM3 (1.8-7.7) Lymphocytes # (Auto) 0.5 TH/MM3 (1.0-4.8) 0.4 TH/MM3 (1.0-4.8) 0.5 TH/MM3 (1.0-4.8) Monocytes # (Auto) 0.4 TH/MM3 (0-0.9) 0.4 TH/MM3 (0-0.9) 0.1 TH/MM3 (0-0.9) Eosinophils # (Auto) 0.2 TH/MM3 (0-0.4) 0.2 TH/MM3 (0-0.4) 0.0 TH/MM3 (0-0.4) Basophils # (Auto) 0.0 TH/MM3 (0-0.2) 0.0 TH/MM3 (0-0.2) 0.0 TH/MM3 (0-0.2) CBC Comment AUTO DIFF AUTO DIFF AUTO DIFF Differential Total Cells Counted 100 100 Neutrophils % (Manual) 64 % (16-70) 61 % (16-70) Band Neutrophils % 3 % (0-6) 7 % (0-6) Lymphocytes % 17 % (9-44) 19 % (9-44) Monocytes % 14 % (0-8) 6 % (0-8) Eosinophils % 1 % (0-4) 7 % (0-4) Neutrophils # (Manual) 1.4 TH/MM3 (1.8-7.7) 2.0 TH/MM3 (1.8-7.7) Differential Comment FINAL DIFF MANUAL FINAL DIFF MANUAL AUTO DIFF CONFIRMED Blastocytes 1 % (0-0) Platelet Estimate LOW (NORMAL) LOW (NORMAL) LOW (NORMAL) Platelet Morphology Comment NORMAL (NORMAL) NORMAL (NORMAL) NORMAL (NORMAL) Blood Urea Nitrogen 7 MG/DL (7-18) 7 MG/DL (7-18) Creatinine 0.71 MG/DL (0.50-1.00) 0.61 MG/DL (0.50-1.00) Random Glucose 106 MG/DL (74-106) 131 MG/DL (74-106) Calcium Level 7.8 MG/DL (8.5-10.1) 8.1 MG/DL (8.5-10.1) Sodium Level 140 MEQ/L (136-145) 141 MEQ/L (136-145) Potassium Level 3.6 MEQ/L (3.5-5.1) 3.5 MEQ/L (3.5-5.1) Chloride Level 110 MEQ/L (98-107) 108 MEQ/L (98-107) Carbon Dioxide Level 23.9 MEQ/L (21.0-32.0) 24.4 MEQ/L (21.0-32.0) Anion Gap 6 MEQ/L (5-15) 9 MEQ/L (5-15) Estimat Glomerular Filtration Rate 81 ML/MIN (>89) 97 ML/MIN (>89) Toxic Granulation 2+ (NORMAL) Blood Smear Pathologist Review Haptoglobin 327 MG/DL (30-200) Prothrombin Time 11.8 SEC (9.8-11.6) Prothromb Time International Ratio 1.2 RATIO Activated Partial Thromboplast Time 28.5 SEC (24.3-30.1) Fibrinogen 464 mg/dL (227-377) Lactate Dehydrogenase 197 U/L (84-246) Folate GREATER THAN 20.0 NG/ML Ovalocytes 1+ (NORMAL) Result Diagram: 07/18/17 5578 07/17/17 9743 Assessment and Plan Disease Oriented Problem List: (1) Transitional cell carcinoma of ureter (2) Breast CA (3) Febrile neutropenia (4) UTI (urinary tract infection) (5) Depression (6) Irritable bowel syndrome Symptom Scale: (1) Pain Comment: Complaining of pain to right knee. NM bone scan revealed multifocal high of increased radiotracer activity suggestive of metastatic disease involving right distal humerus, right clavicle, right scapula, bilateral distal femur, and right posterior ribs. Patient currently undergoing chemotherapy. . (2) Generalized weakness 0-10 Scale: Unable to quantify Comment: Patient is currently undergoing chemotherapy and has low hemoglobin . (3) Nausea 0-10 Scale: Unable to quantify Comment: Patient currently on chemotherapy, and is been complaining of nausea. . (4) Debility 0-10 Scale: Unable to quantify Comment: Progressive . Pertinent Non-Medical Issues Psychosocial:Patient was born and raised in [place], [place]. She moved to [place] in May of 1984. Patient is to a of 46 years. Patient has worked for [employer] in the [employer] Department. 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 She has 1 grandson. Patient enjoys boating and camping with her family. Spiritual: Patient is Worship-she has a local friend who visits and is a Protection Manager. Legal: Patient is completed a living will- will bring copy from home Ethical issues impacting care: None identified at this time . Important Contacts Spouse-Damian Castro -[phone] (home)/[phone](other) Daughter-Matthew Clarke-[phone] . 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 Patient presented to the ER by ambulance on 07/11/17 complaining of generalized malaise and fever with a temperature of 101F. Patient is currently on chemotherapy for breast cancer and she follows at [facility]. Clinical course complicated with possible metastatic disease to bone, urinary tract infection, and febrile neutropenia. Given ongoing comorbidities patient remains at high risk for further complications, deterioration and decline. . Code Status: No Code Plan PLAN: Legal decision maker: Patient is able to participate in medical decision making. In the event that patient is incapacitated, she has designated her Damian Castro as her healthcare surrogate and her daughter Tricia Castro as her alternate healthcare surrogate. Goals: Aggressive short of no code. CODE STATUS: No code DNR/DNI SYMPTOMS: * Pain: Patient complaining of pain to right knee. NM bone scan revealed multifocal high of increased radiotracer activity suggestive of metastatic disease involving right distal humerus, right clavicle, right scapula, bilateral distal femur, and right posterior ribs. Patient currently undergoing chemotherapy. Patient his hydrocodone/acetaminophen 5/325 q 4 hrs prn. Pain managed with hydrocodone/acetaminophen 5/325 q 4 hrs prn. Patient was also started on Prednisone. Patient has required x4 prn doses in the past 24hrs. No recommendations. 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 Complaining of nausea. Nausea managed with ondansetron 4 mg every 6 hrs prn. Patient required x6 prn doses in the past 24 hours. Currently denies nausea. Patient endorsing improved appetite. Patient was also started on Prednisone which also boosts her appetite. No recommendations. * Generalized weakness: Anemia secondary to chemotherapy. 1 unit pRBC transfused 5/2 for Hgb 6.9. Hgb stable-today 10.2. Continue to monitor hemoglobin. * Debility: Progressive. 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 Patient currently using a rolling walker. Patient may benefit from physical therapy if goals remain aggressive. Palliative care will continue to follow the patient during hospital course as condition evolves, to assist patient/decision-maker with understanding of their medical conditions, weighing benefits/burdens of treatment options, for clarification of goals of treatment. Additionally will assist with any symptoms of palliative concern Attestation To help prompt me to consider important information that might be impacting today's encounter and assessment, information from prior notes written by myself or my colleagues may have been "brought forward" into today's note. My signature on this note, however, is an attestation that I personally performed the exam, history, and/or decision-making noted today, and, unless otherwise indicated, the interactions with patient, family, and staff as well as the review of records all occurred today. I also attest that the listed assessment and stated plan reflect my best clinical judgment today based on the combination of historical information, prior notes, and today's exam/ interactions. When time spent is documented, it refers only to time spent today by the signer, or if indicated, combined time spent today by collaborating physician/nurse practitioner. Feliberto Freeman July 18, 2017 12:51
[2017-07-18] MEDS: MAGNESIUM HYDROXIDE SUSP 30 ML CUP PO PRN (21:23)
[2017-07-19] VITALS (11 sets, daily range): BP systolic 127–139; BP diastolic 70–77; PULSE 68–88; RESP 16–18; TEMP 97.4–97.9; O2SAT 96–98
[2017-07-19] MEDS: SODIUM CHLOR 0.9% 1000 ML INJ 1,000 ML IV SCH ×2 (03:48→14:06)
[2017-07-19] MEDS: ONDANSETRON HCL 4 MG/2 ML VIAL IVP PRN ×4 (04:32→20:40)
[2017-07-19] MEDS: ACETAMINOPHEN/HYDROcodone 325 MG/5 MG TAB PO PRN ×4 (04:32→20:20)
--- NOTE | 2017-07-19 08:02 | HHI.PR ---
Subjective Remarks Patient is in bed. Says she noticed swelling in her right arm in the morning today. Says she is also feeling pain. Says she has a history of breast cancer on the right and never had edema before. Improved significantly. No fever or chills. Reports quitting however says this is normal for her. No nausea vomiting or diarrhea or constipation. Eating fairly well. Objective Vitals Vital Signs Date Time Temp Pulse Resp B/P (MAP) Pulse Ox O2 Delivery O2 Flow Rate FiO2 07/19/17 04:25 97.4 71 18 132/77 (95) 96 07/18/17 23:13 97.4 70 16 146/77 (100) 97 07/18/17 20:00 84 07/18/17 16:00 97.7 77 16 140/84 (102) 96 07/18/17 11:50 97.7 79 16 128/70 (89) 96 07/18/17 08:10 97.8 78 16 143/71 (95) 96 I/O 07/18/17 07/18/17 07/18/17 07/19/17 07/19/17 07/19/17 07:00 15:00 23:00 07:00 15:00 23:00 Intake Total 720 ml 1190 ml Output Total 1900 ml 1000 ml 1450 ml Balance -1180 ml -1000 ml -260 ml Intake Oral 720 ml 960 ml IV Total 230 ml Output Urine Total 1900 ml 1000 ml 1450 ml # Bowel Movements 1 Result Diagram: 07/18/17 0550 07/17/17 0430 Imaging Last Impressions Chest X-Ray 07/12/17 0000 Signed Impressions: Service Date/Time: Wednesday, July 12, 2017 01:19 - CONCLUSION: The lungs are clear. Eleazar Mora MD Objective Remarks GENERAL: Awake and alert. Laying in bed. Family at bedside SKIN: + Erythematous macular rash over right anterior chest wall/shoulder, worsening, now on the neck, scalp and forehead. CARDIOVASCULAR: Regular rate and rhythm. No obvious murmurs to auscultation. RESPIRATORY: No wheezing. Clear to auscultation. Breath sounds equal bilaterally. GASTROINTESTINAL: Abdomen soft, non-tender, nondistended. BS normal. Procedures none A/P Problem List: (1) Fever ICD Code: R50.9 - Fever, unspecified (2) UTI (urinary tract infection) ICD Code: N39.0 - Urinary tract infection, site not specified (3) Breast CA ICD Code: C50.919 - Malignant neoplasm of unspecified site of unspecified female breast Assessment and Plan 71-year-old female with a PMH of HTN, Hyperlipidemia, Depression, IBS and Breast CA on Chemo who presented to the ER with complaints of generalized malaise and fever. Work up for HIT by hem/onc . Also now with edema right arm, US doppler to r/o DVT Right arm edema and pain, r/o DVT , US doppler to r/o DVT Neutropenic fever +immunocompromised on chemotherapy White count improved CXR without acute findings. Blood cultures with no growth x 4 days. Flu antigen neg.Legionella and pneumococcal antigen negative. Urine culture growing Pseudomonas Oncology following. Appreciate assistance. s/p vancomycin, aztreonam, and continue Levaquin per IDs recommendations. Monitor rash as it could be reaction to antibiotic Repeat blood cultures negative to date. Continue to monitor for fevers. Continue IV hydration, encourage PO Patient platelets are low, concern for HIT. Discussed with hem/onc, work up in progress. Anemia, secondary to chemotherapy Thrombocytopenia Patient has been transfused. Monitor H&H No signs of active bleeding -Hold Heparin -Monitor for any evidence of bleeding Rash noted over anterior chest/neck and face/scalp -ID following. Likely allergic reaction . the rash is worsening. Will give one dose of Solu-Medrol on the 125 mg 1 time. Continue prednisone 50 mg daily for 4-5 days. Rash improved significantly Pseudomonal UTI: UA with mod leukocytes, 7 WBCs, occ bacteria. Patient has chronic indwelling herrera. Denies any c/o abdominal pain. Urine culture positive for Pseudomonas pansensitive. Continue antibiotics Right ureter CA, s/p open right nephroureterectomy with excision of bladder cuff : chronic indwelling herrera. Follows with Dr. Lopez. Has appt Friday to have herrera changed. Difficult Herrera exchange per patient report, only has one nurse at Dr. Lopez's office who is able to do Breast CA s/p mastectomy: follows at [facility], currently on chemotherapy, outpatient follow up at [facility] as scheduled to resume treatment. -Continue pain management -Continue with PT/OT -Consult palliative care-I did speak with palliative care and patient would like to be a DNR CKD Creatinine appears to near baseline. Monitor. Avoid nephrotoxic agent Hx of DM: not on any diabetic meds HgbA1c 5.3 Constipation, Bowel regimen in place DVT Prophylaxis: SCD Discussed with the patient, family at bedside, nurse, hematology economic specialist Improving. DC home when cleared by hem/onc. Work up for HIT by hem/onc . Also now with edema right arm, US doppler to r/o DVT To follow up as OP with PCP and consultants. Patient says she wants to pursue aggressive treatment and will follow up with her oncology Dr in [place], pt. has already an appointment. Lillie Bradley MD July 19, 2017 08:01
[2017-07-19] MEDS: MECLIZINE HCL 25 MG TAB PO PRN ×3 (08:43→20:20)
[2017-07-19] MEDS: LEVOFLOXACIN 750 MG TAB PO SCH (08:44)
[2017-07-19] MEDS: SODIUM CHLORIDE 0.9% FLUSH 10 ML FLUSH IV FLUSH SCH ×2 (08:44→20:21)
[2017-07-19] MEDS: FOLIC ACID 1 MG TAB PO SCH (08:44)
[2017-07-19] MEDS: DOCUSATE SODIUM 50 MG/SENNA 8.6 MG TAB PO SCH ×2 (08:44→20:20)
[2017-07-19] MEDS: CYANOCOBALAMIN 1,000 MCG TAB PO SCH (08:44)
[2017-07-19] MEDS: MULTIVITAMIN TAB PO SCH (08:44)
[2017-07-19] MEDS: predniSONE 50 MG TAB PO SCH (08:44)
[2017-07-19] MEDS: HYDROCORTISONE 1% CREAM 30 GM TOPICAL SCH ×2 (08:47→20:20)
[2017-07-19] MEDS: PETROLATUM 49%/ZINC OXIDE 15% 4 OUNCE TUBE TOPICAL SCH (08:47)
[2017-07-19] MEDS: FLUTICASONE PROPIONATE 50 MCG/ACT 16 GM NASAL SPRAY EACH NARE SCH (09:00)
--- NOTE | 2017-07-19 09:53 | PD.ONC.PN ---
Subjective Subjective Remarks Afebrile Patient reports she has noticed some right arm swelling States that somewhat sore however she also has bone metastases Remains in good spirits No bleeding Objective Data Date Time Temp Pulse Resp B/P (MAP) Pulse Ox O2 Delivery O2 Flow Rate FiO2 07/19/17 08:39 97.6 81 18 139/73 (95) 97 07/19/17 08:19 88 07/19/17 04:25 97.4 71 18 132/77 (95) 96 07/19/17 04:00 73 07/19/17 00:00 71 07/18/17 23:13 97.4 70 16 146/77 (100) 97 07/18/17 20:00 84 07/18/17 16:00 97.7 77 16 140/84 (102) 96 07/18/17 11:50 97.7 79 16 128/70 (89) 96 07/19/17 07/19/17 07/19/17 07:00 15:00 23:00 Intake Total 1190 ml Output Total 1450 ml Balance -260 ml Result Diagram: 07/18/17 0550 07/17/17 0430 Laboratory Results Laboratory Tests Test 07/18/17 16:00 Administered Medications Medications (Trade) Dose Ordered Sig/Prabha Route PRN Reason Start Time Stop Time Status Last Admin Dose Admin Sodium Chloride 1,000 ml @ 100 mls/hr Q10H IV 07/12/17 02:20 07/19/17 03:48 Sodium Chloride (NS Flush) 2 ml UNSCH PRN IV FLUSH FLUSH AFTER USING IV ACCESS 07/12/17 02:30 07/12/17 15:53 Sodium Chloride (NS Flush) 2 ml BID IV FLUSH 07/12/17 09:00 07/19/17 08:44 Acetaminophen (Tylenol) 650 mg Q6H PRN PO FEVER/PAIN SCALE 1 TO 2 07/12/17 02:30 07/16/17 17:49 Acetaminophen/ Hydrocodone Bitart ([place]ton 5-325 Mg) 1 tab Q4H PRN PO PAIN SCALE 3 TO 5 07/12/17 02:30 07/19/17 04:32 Senna/Docusate Sodium (Katheryn-Colace) 1 tab BID PO 07/12/17 09:00 07/19/17 08:44 Magnesium Hydroxide (Milk Of Magnesia Liq) 30 ml Q12H PRN PO Mild constipation 07/12/17 02:30 07/18/17 21:23 Fluticasone Propionate (Flonase Abhi Spr) 1 spray DAILY EACH NARE 07/13/17 09:00 07/19/17 09:00 Meclizine HCl (Antivert) 25 mg Q6H PRN PO VERTIGO 07/12/17 12:30 07/19/17 08:43 Multivitamins (Theragran) 1 tab DAILY PO 07/13/17 09:00 07/19/17 08:44 Heparin Sodium (Porcine) (Heparin Inj) 5,000 units Q8HR SQ 07/12/17 22:00 Future Hold 07/13/17 06:00 Petrolatum/Zinc Oxide (Sensi-Care Protective Barrier Oint) 1 applic DAILY TOPICAL 07/13/17 09:00 07/19/17 08:47 Levofloxacin (Levaquin) 750 mg DAILY PO 07/13/17 13:00 07/19/17 08:44 Hydrocortisone (Hydrocortisone 1% Cream) 1 applic BID TOPICAL 07/13/17 21:00 07/19/17 08:47 Diphenhydramine HCl (Benadryl) 25 mg Q6H PRN PO ITCHING 07/15/17 16:15 07/15/17 17:40 Ondansetron HCl (Zofran Inj) 4 mg Q4H PRN IVP NAUSEA OR VOMITING 07/15/17 17:45 07/19/17 04:32 Acetaminophen (Tylenol) 650 mg Q4H PRN PO SEE LABEL COMMENTS 07/16/17 10:15 07/16/17 13:25 Diphenhydramine HCl (Benadryl) 25 mg Q4H PRN PO SEE LABEL COMMENTS 07/16/17 10:15 07/16/17 13:25 Folic Acid (Folate) 1 mg DAILY PO 07/17/17 09:00 07/19/17 08:44 Cyanocobalamin (Vitamin B12) 1,000 mcg DAILY PO 07/17/17 09:00 07/19/17 08:44 Prednisone (Deltasone) 50 mg DAILY PO 07/18/17 09:00 07/22/17 08:59 07/19/17 08:44 Objective Remarks GENERAL: Elderly female resting in bed in no obvious distress SKIN: Previous rash to chest and face almost completely gone HEAD: Normocephalic. EYES: No injection or drainage. NECK: Supple, trachea midline. CARDIOVASCULAR: Regular rate and rhythm without murmurs. RESPIRATORY: Clear posteriorly. Breathing unlabored at rest. : Germain catheter in place with clear derek urine. GASTROINTESTINAL: Abdomen soft, non-tender, nondistended. EXTREMITIES: No cyanosis. Mild right upper extremity edema MUSCULOSKELETAL: Generalized weakness NEUROLOGICAL: No obvious focal deficit. Awake, alert, and oriented x3. 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 We will check a ultrasound of the right upper extremity as if she has a thrombus this would explain the platelets not rising along with the hemoglobin and white blood cells. Once she is clear for discharge she will follow-up with the [facility] in [place] to discuss possible palliative radiation to her bony metastatic disease. The patient will discuss possible future chemotherapy with the [facility] however as this only offers a 10% chance of response this may not be worth it in terms of the side effects. Continue to await results of HIT. Attending Statement The exam, history, and the medical decision-making described in the above note were completed with the assistance of the mid-level provider. I reviewed and agree with the findings presented. I attest that I had a [id number] encounter with the patient on the same day, and personally performed and documented my assessment and findings in the medical record. I am very concerned she has DVT related to the infuseport as the right arm is swollen. if there is DVT, I am inclined to remove port and briefly anticoagulate. she will not need the port as she will not be receiving further chemotherapy or immune therapy. will also repeat cbc in am. Shasha Kim July 19, 2017 09:53 Peña Hamilton MD July 19, 2017 12:04
[2017-07-19 10:12] LABS: AUTOMATED NEUTROPHIL # 8.7 TH/MM3 (1.8-7.7); BASOPHIL % 0.2 % (0.0-2.0); EOSINOPHIL % 0.2 % (0.0-4.0); HEMATOCRIT 25.3 % (35.0-46.0); HEMOGLOBIN 8.6 GM/DL (11.6-15.3); LYMPH % 14.4 % (9.0-44.0); LYMPHOCYTE # 1.6 TH/MM3 (1.0-4.8); MEAN CELL VOLUME 82.4 FL (80.0-100.0); MEAN CORPUSCULAR HEMOGLOBIN 28.1 PG (27.0-34.0); MEAN CORPUSCULAR HGB CONC 34.1 % (32.0-36.0); MEAN PLATELET VOLUME 8.1 FL (7.0-11.0); MONOCYTE # 0.7 TH/MM3 (0-0.9); NEUT % 79.2 % (16.0-70.0); PLATELET COUNT 95 TH/MM3 (150-450); RED BLOOD COUNT 3.07 MIL/MM3 (4.00-5.30); RED CELL DISTRIBUTION WIDTH 15.9 % (11.6-17.2)
[2017-07-19 10:47] LABS: TOXIC GRANULATION 1+ (NORMAL)
[2017-07-19 14:45] LABS: HEPARIN INDUCED PLATELET AB NEGATIVE (NEGATIVE)
--- NOTE | 2017-07-19 18:42 | RADRPT ---
EXAM DATE/TIME: 07/19/2017 15:16 [facility] COMPARISON: No previous studies available for comparison. INDICATIONS : Right arm swelling. MEDICAL HISTORY : None. Breast cancer. TIA. Hypercholesterol. Hypertension. SURGICAL HISTORY : Mastectomy. Tubal ligation. Cystectomy. ENCOUNTER: Initial ACUITY: 1 day PAIN SCORE: 0/10 LOCATION: Right arm. FINDINGS: There is spontaneous flow documented in the brachial, basilic, cephalic, axillary, and subclavian vei ns. The vessels are compressible and augmentation response is documented. No filling defects are se en. The flow is phasic with respiration. Direction of flow in the jugular vein is caudal. CONCLUSION: No evidence of right upper extremity DVT. Navarro Iqbal MD on July 19, 2017 at 18:40 Board Certified Radiologist. This report was verified electronically.
[2017-07-19] MEDS: MAGNESIUM HYDROXIDE SUSP 30 ML CUP PO PRN (20:18)
[2017-07-20] VITALS (13 sets, daily range): BP systolic 117–150; BP diastolic 63–89; PULSE 54–79; RESP 16; TEMP 97.8–98.5; O2SAT 95–98
[2017-07-20] MEDS: SODIUM CHLOR 0.9% 1000 ML INJ 1,000 ML IV SCH ×3 (00:18→20:05)
[2017-07-20] MEDS: ONDANSETRON HCL 4 MG/2 ML VIAL IVP PRN ×3 (01:35→08:57)
[2017-07-20] MEDS: ACETAMINOPHEN/HYDROcodone 325 MG/5 MG TAB PO PRN ×4 (01:36→17:20)
[2017-07-20] MEDS: MECLIZINE HCL 25 MG TAB PO PRN (04:52)
[2017-07-20 06:21] LABS: AUTOMATED NEUTROPHIL # 4.6 TH/MM3 (1.8-7.7); BASOPHIL % 0.1 % (0.0-2.0); EOSINOPHIL % 0.3 % (0.0-4.0); HEMATOCRIT 22.1 % (35.0-46.0); HEMOGLOBIN 7.5 GM/DL (11.6-15.3); LYMPH % 16.7 % (9.0-44.0); LYMPHOCYTE # 1.1 TH/MM3 (1.0-4.8); MEAN CELL VOLUME 84.2 FL (80.0-100.0); MEAN CORPUSCULAR HEMOGLOBIN 28.4 PG (27.0-34.0); MEAN CORPUSCULAR HGB CONC 33.7 % (32.0-36.0); MONOCYTE # 0.6 TH/MM3 (0-0.9); NEUT % 72.9 % (16.0-70.0); PLATELET COUNT 59 TH/MM3 (150-450); RED BLOOD COUNT 2.63 MIL/MM3 (4.00-5.30); RED CELL DISTRIBUTION WIDTH 16.2 % (11.6-17.2); WHITE BLOOD COUNT 6.3 TH/MM3 (4.0-11.0)
--- NOTE | 2017-07-20 07:46 | HHI.PR ---
Subjective Remarks Rash Improved significantly. No fever or chills. No bleeding. Denies any chest pain or shortness of breath. No nausea vomiting no diarrhea constipation. Not eating much however. Right arm edema however no DVT by Doppler ultrasound review with the patient. Objective Vitals Vital Signs Date Time Temp Pulse Resp B/P (MAP) Pulse Ox O2 Delivery O2 Flow Rate FiO2 07/20/17 04:42 97.8 58 16 120/66 (84) 97 07/20/17 04:06 56 07/20/17 00:26 97.9 69 16 117/63 (81) 97 07/20/17 00:09 54 07/19/17 20:27 70 07/19/17 20:09 97.7 68 16 137/73 (94) 98 07/19/17 17:30 97.8 78 16 130/72 (91) 97 07/19/17 16:09 72 07/19/17 12:00 77 07/19/17 11:40 97.9 81 18 127/70 (89) 97 07/19/17 08:39 97.6 81 18 139/73 (95) 97 07/19/17 08:19 88 I/O 07/19/17 07/19/17 07/19/17 07/20/17 07/20/17 07/20/17 07:00 15:00 23:00 07:00 15:00 23:00 Intake Total 1190 ml 560 ml Output Total 1450 ml 1400 ml 1650 ml Balance -260 ml -1400 ml -1090 ml Intake Oral 960 ml 560 ml IV Total 230 ml Output Urine Total 1450 ml 1400 ml 1650 ml # Bowel Movements 1 Result Diagram: 07/20/17 0438 07/17/17 0430 Imaging Last Impressions Upper Extremity Ultrasound 07/19/17 0000 Signed Impressions: Service Date/Time: Wednesday, July 19, 2017 15:16 - CONCLUSION: No evidence of right upper extremity DVT. Navarro Iqbal MD Chest X-Ray 07/12/17 0000 Signed Impressions: Service Date/Time: Wednesday, July 12, 2017 01:19 - CONCLUSION: The lungs are clear. Eleazar Mora MD Objective Remarks GENERAL: Awake and alert. Laying in bed. Family at bedside SKIN: + Erythematous macular rash over right anterior chest wall/shoulder, worsening, now on the neck, scalp and forehead. CARDIOVASCULAR: Regular rate and rhythm. No obvious murmurs to auscultation. RESPIRATORY: No wheezing. Clear to auscultation. Breath sounds equal bilaterally. GASTROINTESTINAL: Abdomen soft, non-tender, nondistended. BS normal. MUSCULOSKELETAL: right arm edema. Procedures none A/P Problem List: (1) Fever ICD Code: R50.9 - Fever, unspecified (2) UTI (urinary tract infection) ICD Code: N39.0 - Urinary tract infection, site not specified (3) Breast CA ICD Code: C50.919 - Malignant neoplasm of unspecified site of unspecified female breast Assessment and Plan 71-year-old female with a PMH of HTN, Hyperlipidemia, Depression, IBS and Breast CA on Chemo who presented to the ER with complaints of generalized malaise and fever. Work up for HIT by hem/onc . Now with edema right arm, US doppler no DVT . Elevate arm. Right arm edema and pain, r/o DVT , US doppler to r/o DVT Neutropenic fever +immunocompromised on chemotherapy White count improved CXR without acute findings. Blood cultures with no growth x 4 days. Flu antigen neg.Legionella and pneumococcal antigen negative. Urine culture growing Pseudomonas Oncology following. Appreciate assistance. s/p vancomycin, aztreonam, and continue Levaquin per IDs recommendations. Monitor rash as it could be reaction to antibiotic Repeat blood cultures negative to date. Continue to monitor for fevers. Continue IV hydration, encourage PO Patient platelets are low, concern for HIT. Discussed with hem/onc, work up in progress. Anemia, secondary to chemotherapy Thrombocytopenia Patient has been transfused. Monitor H&H No signs of active bleeding -Hold Heparin -Monitor for any evidence of bleeding Rash noted over anterior chest/neck and face/scalp -ID following. Likely allergic reaction . the rash is worsening. Will give one dose of Solu-Medrol on the 125 mg 1 time. Continue prednisone 50 mg daily for 4-5 days. Rash improved significantly Pseudomonal UTI: UA with mod leukocytes, 7 WBCs, occ bacteria. Patient has chronic indwelling herrera. Denies any c/o abdominal pain. Urine culture positive for Pseudomonas pansensitive. Continue antibiotics Right ureter CA, s/p open right nephroureterectomy with excision of bladder cuff : chronic indwelling herrera. Follows with Dr. Lopez. Has appt Friday to have herrera changed. Difficult Herrera exchange per patient report, only has one nurse at Dr. Lopez's office who is able to do Breast CA s/p mastectomy: follows at [facility], currently on chemotherapy, outpatient follow up at [facility] as scheduled to resume treatment. -Continue pain management -Continue with PT/OT -Consult palliative care-I did speak with palliative care and patient would like to be a DNR CKD Creatinine appears to near baseline. Monitor. Avoid nephrotoxic agent Hx of DM: not on any diabetic meds HgbA1c 5.3 Constipation, Bowel regimen in place DVT Prophylaxis: SCD Discussed with the patient, family at bedside, nurse, hematology credit collection specialist Improving. DC home when cleared by hem/onc. Work up for HIT by hem/onc . Edema right arm, US doppler no DVT Plan to DC home with home health. To follow up as OP with PCP and consultants. Patient says she wants to pursue aggressive treatment and will follow up with her oncology Dr in [place], pt. has already an appointment. Lillie Bradley MD July 20, 2017 07:46
[2017-07-20] MEDS: CYANOCOBALAMIN 1,000 MCG TAB PO SCH (08:51)
[2017-07-20] MEDS: MULTIVITAMIN TAB PO SCH (08:52)
[2017-07-20] MEDS: LEVOFLOXACIN 750 MG TAB PO SCH (08:52)
[2017-07-20] MEDS: DOCUSATE SODIUM 50 MG/SENNA 8.6 MG TAB PO SCH ×2 (08:52→22:02)
[2017-07-20] MEDS: predniSONE 50 MG TAB PO SCH (08:52)
[2017-07-20] MEDS: FOLIC ACID 1 MG TAB PO SCH (08:52)
[2017-07-20] MEDS: HYDROCORTISONE 1% CREAM 30 GM TOPICAL SCH ×2 (09:00→22:02)
[2017-07-20] MEDS: SODIUM CHLORIDE 0.9% FLUSH 10 ML FLUSH IV FLUSH SCH ×2 (09:00→21:50)
[2017-07-20] MEDS: FLUTICASONE PROPIONATE 50 MCG/ACT 16 GM NASAL SPRAY EACH NARE SCH (09:00)
[2017-07-20] MEDS: PETROLATUM 49%/ZINC OXIDE 15% 4 OUNCE TUBE TOPICAL SCH (09:00)
[2017-07-20] MEDS ORDERED: PROCHLORPERAZINE INJ 10 MG/2 ML VIAL IV PUSH PRN (09:30)
--- NOTE | 2017-07-20 09:37 | PD.ONC.PN ---
Subjective Subjective Remarks Afebrile Urine is clear and yellow Happy to have had a BM two days in a row No obvious bleeding Still requiring Elmore pretty frequently which makes her nauseous Objective Data Date Time Temp Pulse Resp B/P (MAP) Pulse Ox O2 Delivery O2 Flow Rate FiO2 07/20/17 08:15 75 07/20/17 07:47 98.5 56 16 132/75 (94) 97 07/20/17 04:42 97.8 58 16 120/66 (84) 97 07/20/17 04:06 56 07/20/17 00:26 97.9 69 16 117/63 (81) 97 07/20/17 00:09 54 07/19/17 20:27 70 07/19/17 20:09 97.7 68 16 137/73 (94) 98 07/19/17 17:30 97.8 78 16 130/72 (91) 97 07/19/17 16:09 72 07/19/17 12:00 77 07/19/17 11:40 97.9 81 18 127/70 (89) 97 07/20/17 07/20/17 07/20/17 07:00 15:00 23:00 Intake Total 560 ml Output Total 1650 ml Balance -1090 ml Result Diagram: 07/20/17 0438 07/17/17 0430 Laboratory Results Laboratory Tests Test 07/20/17 04:38 White Blood Count 6.3 TH/MM3 Red Blood Count 2.63 MIL/MM3 Hemoglobin 7.5 GM/DL Hematocrit 22.1 % Mean Corpuscular Volume 84.2 FL Mean Corpuscular Hemoglobin 28.4 PG Mean Corpuscular Hemoglobin Concent 33.7 % Red Cell Distribution Width 16.2 % Platelet Count 59 TH/MM3 Mean Platelet Volume 8.0 FL Neutrophils (%) (Auto) 72.9 % Lymphocytes (%) (Auto) 16.7 % Monocytes (%) (Auto) 10.0 % Eosinophils (%) (Auto) 0.3 % Basophils (%) (Auto) 0.1 % Neutrophils # (Auto) 4.6 TH/MM3 Lymphocytes # (Auto) 1.1 TH/MM3 Monocytes # (Auto) 0.6 TH/MM3 Eosinophils # (Auto) 0.0 TH/MM3 Basophils # (Auto) 0.0 TH/MM3 CBC Comment AUTO DIFF Differential Comment AUTO DIFF CONFIRMED Platelet Estimate LOW Platelet Morphology Comment NORMAL Administered Medications Medications (Trade) Dose Ordered Sig/Prabha Route PRN Reason Start Time Stop Time Status Last Admin Dose Admin Sodium Chloride 1,000 ml @ 100 mls/hr Q10H IV 07/12/17 02:20 07/20/17 09:09 Sodium Chloride (NS Flush) 2 ml UNSCH PRN IV FLUSH FLUSH AFTER USING IV ACCESS 07/12/17 02:30 07/12/17 15:53 Sodium Chloride (NS Flush) 2 ml BID IV FLUSH 07/12/17 09:00 07/19/17 20:21 Acetaminophen (Tylenol) 650 mg Q6H PRN PO FEVER/PAIN SCALE 1 TO 2 07/12/17 02:30 07/16/17 17:49 Acetaminophen/ Hydrocodone Bitart (Elmore 5-325 Mg) 1 tab Q4H PRN PO PAIN SCALE 3 TO 5 07/12/17 02:30 07/20/17 08:52 Senna/Docusate Sodium (Katheryn-Colace) 1 tab BID PO 07/12/17 09:00 07/20/17 08:52 Magnesium Hydroxide (Milk Of Yeni Nagy) 30 ml Q12H PRN PO Mild constipation 07/12/17 02:30 07/19/17 20:18 Fluticasone Propionate (Flonase Abhi Spr) 1 spray DAILY EACH NARE 07/13/17 09:00 07/19/17 09:00 Meclizine HCl (Antivert) 25 mg Q6H PRN PO VERTIGO 07/12/17 12:30 07/20/17 04:52 Multivitamins (Theragran) 1 tab DAILY PO 07/13/17 09:00 07/20/17 08:52 Heparin Sodium (Porcine) (Heparin Inj) 5,000 units Q8HR SQ 07/12/17 22:00 Future Hold 07/13/17 06:00 Petrolatum/Zinc Oxide (Sensi-Care Protective Barrier Oint) 1 applic DAILY TOPICAL 07/13/17 09:00 07/20/17 09:00 Levofloxacin (Levaquin) 750 mg DAILY PO 07/13/17 13:00 07/20/17 08:52 Hydrocortisone (Hydrocortisone 1% Cream) 1 applic BID TOPICAL 07/13/17 21:00 07/20/17 09:00 Diphenhydramine HCl (Benadryl) 25 mg Q6H PRN PO ITCHING 07/15/17 16:15 07/15/17 17:40 Acetaminophen (Tylenol) 650 mg Q4H PRN PO SEE LABEL COMMENTS 07/16/17 10:15 07/16/17 13:25 Diphenhydramine HCl (Benadryl) 25 mg Q4H PRN PO SEE LABEL COMMENTS 07/16/17 10:15 07/16/17 13:25 Folic Acid (Folate) 1 mg DAILY PO 07/17/17 09:00 07/20/17 08:52 Cyanocobalamin (Vitamin B12) 1,000 mcg DAILY PO 07/17/17 09:00 07/20/17 08:51 Prednisone (Deltasone) 50 mg DAILY PO 07/18/17 09:00 07/22/17 08:59 07/20/17 08:52 Ondansetron HCl (Zofran Inj) 4 mg Q6H PRN IVP NAUSEA OR VOMITING 07/20/17 09:00 07/20/17 08:57 Objective Remarks GENERAL: Elderly female resting in bed in no obvious distress SKIN: Previous rash to chest and face no longer visible HEAD: Normocephalic. EYES: No injection or drainage. NECK: Supple, trachea midline. CARDIOVASCULAR: Regular rate and rhythm without murmurs. RESPIRATORY: Clear posteriorly. Breathing unlabored at rest. : Germain catheter in place with clear yellow urine. GASTROINTESTINAL: Abdomen soft, non-tender, nondistended. EXTREMITIES: No cyanosis. + right upper extremity edema MUSCULOSKELETAL: Generalized weakness NEUROLOGICAL: No obvious focal deficit. Awake, alert, and oriented x3. Assessment/Plan Problem List: (1) Febrile neutropenia ICD Codes: D70.9 - Neutropenia, unspecified; R50.81 - Fever presenting with conditions classified elsewhere Plan: -- Febrile neutropenia --Urine culture ++Pseudomonas --Blood cultures no growth --on vancomycin, Azactam, Levaquin Patient received Alimta on 07/07/17. 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 Pt's counts trending back down for reasons currently unknown. No sign of bleeding. Ultrasound negative for DVT. Pt denies dark stools and urine is clear yellow. Will check iron studies as well as a stool for Hemoccult. In terms of her pain and nausea, I am placing her on a Fentanyl patch for long acting pain control. Zofran is changed to Q6h. Add Compazine for nausea control. Attending Statement The exam, history, and the medical decision-making described in the above note were completed with the assistance of the mid-level provider. I reviewed and agree with the findings presented. I attest that I had a [id number] encounter with the patient on the same day, and personally performed and documented my assessment and findings in the medical record. has started duragesic several hours ago and explained it will take 12 hours to work. she would like to receive her radiation therapy here. I suspect falling counts due to chemo as she is day 13. Hopefully home tomorrow. check cbc in am . Shasha Kim July 20, 2017 09:37 Peña Hamilton MD July 20, 2017 17:05
[2017-07-20] MEDS: fentaNYL 25 MCG/HR PATCH T-DERMAL SCH (11:08)
[2017-07-20 13:23] LABS: BICARBONATE 25.8 MEQ/L (21.0-32.0); BLOOD UREA NITROGEN 13 MG/DL (7-18); CALCIUM 7.5 MG/DL (8.5-10.1); CHLORIDE 109 MEQ/L (98-107); CREATININE 0.73 MG/DL (0.50-1.00); GLOMERULAR FILTRATION RATE 79 ML/MIN (>89); GLUCOSE,RANDOM 133 MG/DL (74-106); IRON (FE) 53 MCG/DL (50-170); SODIUM (NA) 142 MEQ/L (136-145)
[2017-07-20 13:27] LABS: % SATURATION IRON PROFILE 29.3 % (20-50); FERRITIN 1545 NG/ML (8-252); TOTAL IRON BINDING CAPACITY 181 MCG/DL (250-450)
[2017-07-21] VITALS (8 sets, daily range): BP systolic 127–158; BP diastolic 71–86; PULSE 48–79; RESP 16–17; TEMP 97–98.2; O2SAT 94–100
[2017-07-21 04:05] LABS: BASOPHIL % 0.1 % (0.0-2.0); EOSINOPHIL % 0.2 % (0.0-4.0); HEMATOCRIT 22.4 % (35.0-46.0); HEMOGLOBIN 7.7 GM/DL (11.6-15.3); LYMPH % 17.4 % (9.0-44.0); MEAN CORPUSCULAR HEMOGLOBIN 29.1 PG (27.0-34.0); MEAN CORPUSCULAR HGB CONC 34.2 % (32.0-36.0); MEAN PLATELET VOLUME 8.1 FL (7.0-11.0); MONO % 9.2 % (0.0-8.0); MONOCYTE # 0.5 TH/MM3 (0-0.9); NEUT % 73.1 % (16.0-70.0); PLATELET COUNT 73 TH/MM3 (150-450); RED BLOOD COUNT 2.64 MIL/MM3 (4.00-5.30); RED CELL DISTRIBUTION WIDTH 16.2 % (11.6-17.2); WHITE BLOOD COUNT 5.5 TH/MM3 (4.0-11.0)
[2017-07-21] MEDS: SODIUM CHLOR 0.9% 1000 ML INJ 1,000 ML IV SCH ×2 (06:17→17:10)
[2017-07-21] MEDS: ACETAMINOPHEN/HYDROcodone 325 MG/5 MG TAB PO PRN ×2 (07:03→14:01)
[2017-07-21] MEDS: SODIUM CHLORIDE 0.9% FLUSH 10 ML FLUSH IV FLUSH PRN (07:05)
[2017-07-21] MEDS: ONDANSETRON HCL 4 MG/2 ML VIAL IVP PRN ×2 (07:05→14:01)
[2017-07-21 07:32] LABS: BANDS 16 % (0-6); CORRECTED NUCLEATED RBC 1 /100 WBC (0-0); LYMPHOCYTES 10 % (9-44); MONOCYTES 6 % (0-8); MYELOCYTES 1 % (0-0); NEUTROPHIL # MANUAL DIFF 4.5 TH/MM3 (1.8-7.7); NUCLEATED RED BLOOD CELL 1 (0-0); PLASMA CELLS 1 % (0-0); POLYS (SEG NEUTROPHILS) 65 % (16-70)
[2017-07-21 07:37] LABS: TOXIC GRANULATION 2+ (NORMAL)
--- NOTE | 2017-07-21 08:04 | HHI.PR ---
Subjective Remarks Francisco naranjo says she is eating well. Relaced No n/v/d/c. Denies chest pain or sob No fever or chills. Rash resolved Feels better and feels comfortable to go home Objective Vitals Vital Signs Date Time Temp Pulse Resp B/P (MAP) Pulse Ox O2 Delivery O2 Flow Rate FiO2 07/21/17 04:04 69 07/21/17 03:31 98.0 60 16 158/77 (104) 98 07/21/17 00:18 48 07/20/17 23:35 98.0 57 16 150/73 (98) 96 07/20/17 20:12 97.8 65 16 132/68 (89) 97 07/20/17 19:28 59 07/20/17 17:22 98.2 79 149/89 (109) 95 07/20/17 16:29 70 07/20/17 12:00 72 07/20/17 11:13 97.8 68 16 129/73 (91) 98 07/20/17 08:15 75 I/O 07/20/17 07/20/17 07/20/17 07/21/17 07/21/17 07/21/17 07:00 15:00 23:00 07:00 15:00 23:00 Intake Total 560 ml 2680 ml 1420 ml Output Total 1650 ml 1850 ml 1175 ml Balance -1090 ml 830 ml 245 ml Intake Oral 560 ml 1680 ml 420 ml IV Total 1000 ml 1000 ml Output Urine Total 1650 ml 1850 ml 1175 ml # Bowel Movements 1 Result Diagram: 07/21/17 0350 07/20/17 1200 Imaging Last Impressions Upper Extremity Ultrasound 07/19/17 0000 Signed Impressions: Service Date/Time: Wednesday, July 19, 2017 15:16 - CONCLUSION: No evidence of right upper extremity DVT. Navarro Iqbal MD Chest X-Ray 07/12/17 0000 Signed Impressions: Service Date/Time: Wednesday, July 12, 2017 01:19 - CONCLUSION: The lungs are clear. Eleazar Mora MD Objective Remarks GENERAL: Awake and alert. Laying in bed. Family at bedside SKIN: + Erythematous macular rash over right anterior chest wall/shoulder, worsening, now on the neck, scalp and forehead. CARDIOVASCULAR: Regular rate and rhythm. No obvious murmurs to auscultation. RESPIRATORY: No wheezing. Clear to auscultation. Breath sounds equal bilaterally. GASTROINTESTINAL: Abdomen soft, non-tender, nondistended. BS normal. MUSCULOSKELETAL: right arm edema. Procedures none A/P Problem List: (1) Fever ICD Code: R50.9 - Fever, unspecified (2) UTI (urinary tract infection) ICD Code: N39.0 - Urinary tract infection, site not specified (3) Breast CA ICD Code: C50.919 - Malignant neoplasm of unspecified site of unspecified female breast Assessment and Plan 71-year-old female with a PMH of HTN, Hyperlipidemia, Depression, IBS and Breast CA on Chemo who presented to the ER with complaints of generalized malaise and fever. Work up for HIT by hem/onc . Now with edema right arm, US doppler no DVT . Elevate arm. Right arm edema and pain, r/o DVT , US doppler to r/o DVT Neutropenic fever +immunocompromised on chemotherapy White count improved CXR without acute findings. Blood cultures with no growth x 4 days. Flu antigen neg.Legionella and pneumococcal antigen negative. Urine culture growing Pseudomonas Oncology following. Appreciate assistance. s/p vancomycin, aztreonam, and continue Levaquin per IDs recommendations. Monitor rash as it could be reaction to antibiotic Repeat blood cultures negative to date. Continue to monitor for fevers. Continue IV hydration, encourage PO Patients platelets are low, HGB low concern for HIT. Discussed with hem/onc. Work up negative for HIT. No iron deficiency, normal B12 and folate. Stool normal color. Likely low PLT and HGB is chemo related Anemia, secondary to chemotherapy Thrombocytopenia Patient has been transfused. Monitor H&H No signs of active bleeding -Hold Heparin -Monitor for any evidence of bleeding Rash noted over anterior chest/neck and face/scalp -ID following. Likely allergic reaction . the rash is worsening. Will give one dose of Solu-Medrol on the 125 mg 1 time. Continue prednisone 50 mg daily for 4-5 days. Rash improved significantly Pseudomonal UTI: UA with mod leukocytes, 7 WBCs, occ bacteria. Patient has chronic indwelling herrera. Denies any c/o abdominal pain. Urine culture positive for Pseudomonas pansensitive. Continue antibiotics Right ureter CA, s/p open right nephroureterectomy with excision of bladder cuff : chronic indwelling herrera. Follows with Dr. Lopez. Has appt Friday to have herrera changed. Difficult Herrera exchange per patient report, only has one nurse at Dr. Lopez's office who is able to do Breast CA s/p mastectomy: follows at [facility], currently on chemotherapy, outpatient follow up at [facility] as scheduled to resume treatment. -Continue pain management -Continue with PT/OT -Consult palliative care-I did speak with palliative care and patient would like to be a DNR CKD Creatinine appears to near baseline. Monitor. Avoid nephrotoxic agent Hx of DM: not on any diabetic meds HgbA1c 5.3 Constipation, Bowel regimen in place DVT Prophylaxis: SCD Discussed with the patient, family at bedside, nurse, hematology drug safety data management specialist Improving. DC home when cleared by hem/onc. Work up for HIT by hem/onc . Edema right arm, US doppler no DVT Plan to DC home. PT evaluated patient no need of PT at DC. Patient improved. DC home in stable condition to follow up as OP with PCP and consultants To follow up as OP with PCP and consultants. Patient says she wants to pursue aggressive treatment and will follow up with her oncology Dr in [place], pt. has already an appointment. Lillie Bradley MD July 21, 2017 08:04
[2017-07-21] MEDS: SODIUM CHLORIDE 0.9% FLUSH 10 ML FLUSH IV FLUSH SCH ×2 (09:00→21:00)
[2017-07-21] MEDS: PETROLATUM 49%/ZINC OXIDE 15% 4 OUNCE TUBE TOPICAL SCH (09:00)
[2017-07-21] MEDS: predniSONE 50 MG TAB PO SCH (09:00)
[2017-07-21] MEDS: DOCUSATE SODIUM 50 MG/SENNA 8.6 MG TAB PO SCH ×2 (09:06→21:02)
[2017-07-21] MEDS: FOLIC ACID 1 MG TAB PO SCH (09:06)
[2017-07-21] MEDS: CYANOCOBALAMIN 1,000 MCG TAB PO SCH (09:06)
[2017-07-21] MEDS: MULTIVITAMIN TAB PO SCH (09:06)
[2017-07-21] MEDS: LEVOFLOXACIN 750 MG TAB PO SCH (09:07)
--- NOTE | 2017-07-21 09:44 | HHI.DS ---
Discharge Summary Admission Date Jul 14, 2017 at 09:33 Discharge Date: July 23, 2017 Admitting Diagnosis fever and on CHEMO immunosuppressed (1) Fever ICD Code: R50.9 - Fever, unspecified (2) UTI (urinary tract infection) ICD Code: N39.0 - Urinary tract infection, site not specified (3) Breast CA ICD Code: C50.919 - Malignant neoplasm of unspecified site of unspecified female breast Procedures none Brief History - From Admission This is a 71-year-old female with a PMH of HTN, Hyperlipidemia, Depression, IBS and Breast CA on Chemo who presented to the ER with complaints of generalized malaise and fever. Pt states she is currently on chemotherapy for Breast CA, following at [facility]. Had outpatient PET Scan today and felt weak/tired after imaging, then had febrile episode at home w/ Temp 101. States she was about to get into the car to go to [place] when she had sudden weakness w/ near syncope at which point she was brought here. Denies abdominal pain, nausea, vomiting or diarrhea. No sick contacts. On arrival, BP 109/53, HR 109, O2 sat 96% on RA, Temp 99.7. CBC unremarkable except for elevated neutrophil count. Creatinine 1.05, previously 1.30 on 01/02/2017. Troponin negative. Lactic Acid normal. UA with moderate LE, bacteriuria. CXR with no acute findings. S/ p Blood/Urine cultures, Vanc/Cefepime in ER. CBC/BMP: 07/21/17 0350 07/20/17 1200 Significant Findings Laboratory Tests Test 07/18/17 16:00 07/19/17 08:50 07/20/17 04:38 07/20/17 12:00 Red Blood Count 3.07 MIL/MM3 (4.00-5.30) 2.63 MIL/MM3 (4.00-5.30) Hemoglobin 8.6 GM/DL (11.6-15.3) 7.5 GM/DL (11.6-15.3) Hematocrit 25.3 % (35.0-46.0) 22.1 % (35.0-46.0) Platelet Count 95 TH/MM3 (150-450) 59 TH/MM3 (150-450) Neutrophils (%) (Auto) 79.2 % (16.0-70.0) 72.9 % (16.0-70.0) Neutrophils # (Auto) 8.7 TH/MM3 (1.8-7.7) Toxic Granulation 1+ (NORMAL) Platelet Estimate LOW (NORMAL) LOW (NORMAL) Monocytes (%) (Auto) 10.0 % (0.0-8.0) Random Glucose 133 MG/DL (74-106) Calcium Level 7.5 MG/DL (8.5-10.1) Potassium Level 3.2 MEQ/L (3.5-5.1) Chloride Level 109 MEQ/L (98-107) Estimat Glomerular Filtration Rate 79 ML/MIN (>89) Total Iron Binding Capacity 181 MCG/DL (250-450) Ferritin 1545 NG/ML (8-252) Test 07/21/17 03:50 Red Blood Count 2.64 MIL/MM3 (4.00-5.30) Hemoglobin 7.7 GM/DL (11.6-15.3) Hematocrit 22.4 % (35.0-46.0) Platelet Count 73 TH/MM3 (150-450) Neutrophils (%) (Auto) 73.1 % (16.0-70.0) Monocytes (%) (Auto) 9.2 % (0.0-8.0) Band Neutrophils % 16 % (0-6) Myelocytes 1 % (0-0) Nucleated Red Blood Cells 1 /100 WBC (0-0) Plasma Cells 1 % (0-0) Toxic Granulation 2+ (NORMAL) Platelet Estimate LOW (NORMAL) Imaging Last Impressions Upper Extremity Ultrasound 07/19/17 0000 Signed Impressions: Service Date/Time: Wednesday, July 19, 2017 15:16 - CONCLUSION: No evidence of right upper extremity DVT. Navarro Iqbal MD Chest X-Ray 07/12/17 0000 Signed Impressions: Service Date/Time: Wednesday, July 12, 2017 01:19 - CONCLUSION: The lungs are clear. Eleazar Mora MD PE at Discharge GENERAL: Awake and alert. Laying in bed. Family at bedside SKIN: + Erythematous macular rash over right anterior chest wall/shoulder, worsening, now on the neck, scalp and forehead. CARDIOVASCULAR: Regular rate and rhythm. No obvious murmurs to auscultation. RESPIRATORY: No wheezing. Clear to auscultation. Breath sounds equal bilaterally. GASTROINTESTINAL: Abdomen soft, non-tender, nondistended. BS normal. MUSCULOSKELETAL: right arm edema. Hospital Course 71-year-old female with a PMH of HTN, Hyperlipidemia, Depression, IBS and Breast CA on Chemo who presented to the ER with complaints of generalized malaise and fever. Bilateral inguinal masses. ? Pseudoaneurysm. Discussed with hem/onc. US shows poss pseudoaneurysms patient with low PLT and low HGB and at risk of bleeding. Also patient doesn't have any history of intervention. Consult vascular surgeon for evaluation, seen by Dr Osman, appreciate recs. Pelvic CTA with contrast and see if these are indeed pseudoaneurysms Degree of flow will determine whether this is something we can embolize with some thrombin or this has to be surgically approached, however patient with low PLT and low HGB and at very high risk. Monitor closely Work up for HIT by hem/onc . Noted with edema right arm, US doppler no DVT . Elevate arm. Neutropenic fever +immunocompromised on chemotherapy White count improved CXR without acute findings. Blood cultures with no growth x 4 days. Flu antigen neg.Legionella and pneumococcal antigen negative. Urine culture growing Pseudomonas Oncology following. Appreciate assistance. s/p vancomycin, aztreonam, and continue Levaquin per IDs recommendations. Monitor rash as it could be reaction to antibiotic Repeat blood cultures negative to date. Continue to monitor for fevers. Continue IV hydration, encourage PO Patients platelets are low, HGB low concern for HIT. Discussed with hem/onc. Work up negative for HIT. No iron deficiency, normal B12 and folate. Stool normal color. Likely low PLT and HGB is chemo related Anemia, secondary to chemotherapy Thrombocytopenia Patient has been transfused. Monitor H&H No signs of active bleeding -Hold Heparin -Monitor for any evidence of bleeding Rash noted over anterior chest/neck and face/scalp -ID following. Likely allergic reaction . the rash is worsening. Will give one dose of Solu-Medrol on the 125 mg 1 time. Continue prednisone 50 mg daily for 4-5 days. Rash improved significantly Pseudomonal UTI: UA with mod leukocytes, 7 WBCs, occ bacteria. Patient has chronic indwelling herrera. Denies any c/o abdominal pain. Urine culture positive for Pseudomonas pansensitive. Continue antibiotics Right ureter CA, s/p open right nephroureterectomy with excision of bladder cuff : chronic indwelling herrera. Follows with Dr. Lopez. Has appt Friday to have herrera changed. Difficult Herrera exchange per patient report, only has one nurse at Dr. Lopez's office who is able to do Breast CA s/p mastectomy: follows at [place], currently on chemotherapy, outpatient follow up at [facility] as scheduled to resume treatment. -Continue pain management -Continue with PT/OT -Consult palliative care-I did speak with palliative care and patient would like to be a DNR CKD Creatinine appears to near baseline. Monitor. Avoid nephrotoxic agent Hx of DM: not on any diabetic meds HgbA1c 5.3 Constipation, Bowel regimen in place DVT Prophylaxis: SCD Discussed with the patient, family at bedside, nurse, hematology aviation medicine specialist Improving. DC home when cleared by hem/onc. Work up for HIT by hem/onc . Edema right arm, US doppler no DVT Plan to DC home , patient is cleared for dc b7 hemonc and vasc surgeon. Patient with possible pseudoaneurysm, Consulted vasc surg recommended CtA reviewed and no pseudoaneurysm PT evaluated patient no need of PT at DC. Patient improved. DC home to follow up as OP with PCP and consultants To follow up as OP with PCP and consultants. Patient says she wants to pursue aggressive treatment and will follow up with her oncology Dr in [place], pt. has already an appointment. Pt Condition on Discharge: Stable Discharge Disposition: Discharge Home Discharge Time: > 30 minutes Discharge Instructions DIET: Follow Instructions for: As Tolerated, No Restrictions Activities you can perform: Regular-No Restrictions Follow up Referrals: Oncology - 2-3 Days PCP Follow-up - 2-3 Days New Medications: Hydrocodone-Acetaminophen (Rich[place]) 5 Mg-325 Mg Tab 1 TAB PO Q6H PRN for PAIN, #30 TAB 0 Refills Fentanyl Patch 72 HR (Duragesic Patch 72 HR) 25 Mch/Hr Patch 1 PATCH T-DERMAL Q3D for Pain Management, #7 PATCH Levofloxacin (Levaquin) 750 Mg Tablet 750 MG PO DAILY for Infection, #10 TAB Prednisone (Prednisone) 50 Mg Tab 50 MG PO DAILY for Rash, #4 TAB Continued Medications: Atezolizumab (Tecentriq) 1,200 Mg/20 Ml (60 Mg/Ml) Vial 1200 ML IV every 3 weeks Fish Oil-Cholecalciferol (Fish Oil + D3) 1,200-1,000 Mg-Unit Cap 1400 MG PO DAILY for Nutritional Supplement, #30 CAP 0 Refills Fluticasone Nasal [place] (Fluticasone Nasal [place]) 50 Mcg/Act Naspr 50 MCG EACH NARE DAILY for Allergy Management, #1 BOTTLE 0 Refills 50 mcg/spray Magnesium Hydroxide (Singh Milk of Magnesia) 311 Mg Chew 2 TAB CHEW DAILY PRN for INDIGESTION OR UPSET STOMACH, #1 BOTTLE 0 Refills Meclizine (Meclizine) 25 Mg Tab 25 MG PO DIRECTED PRN for VERTIGO, TAB 0 Refills Multiple Vitamin (Multiple Vitamin) 1 Tab 1 TAB PO DAILY for Nutritional Supplement, TAB 0 Refills Ondansetron (Zofran) 4 Mg Tab 4 MG PO Q12HR PRN for NAUSEA OR VOMITING, TAB 0 Refills Oxybutynin ER 24 HR (Ditropan XL 24 HR) 5 Mg Tab 5 MG PO DAILY for Bladder Spasm, #30 TAB 3 Refills Turmeric (Curcuma Longa) (Turmeric) 500 Mg Cap 500 MG PO DAILY [compazine] () Unknown Dose PO DAILY Lillie Bradley MD July 21, 2017 09:44
[2017-07-21] MEDS ORDERED: POTASSIUM BICARBONATE 25 MEQ EFFERVESCENT TAB PO ONE (10:00)
[2017-07-21] MEDS: MECLIZINE HCL 25 MG TAB PO PRN (10:20)
[2017-07-21] MEDS: FLUTICASONE PROPIONATE 50 MCG/ACT 16 GM NASAL SPRAY EACH NARE SCH (10:21)
[2017-07-21] MEDS: HYDROCORTISONE 1% CREAM 30 GM TOPICAL SCH ×2 (10:22→21:02)
--- NOTE | 2017-07-21 17:30 | HHI.HCPN ---
Reason for visit a. To assist with evaluation and management of symptoms including:Pain, nausea, generalized weakness, debility b. To assist medical decision maker(s) with: better understanding of current medical conditions; weighing benefits/burdens of medical treatment options; making medical treatment decisions. Subjective/Interval History Follow up medically necessary for symptom management and further clarification of goals of care. Patient seen and examined in her room in the presence of her . Patient in bed, awake, alert, oriented to self, place and situation. Patient denies pain, nausea and vomiting. Patient feeling itchy. Endorsing good appetite. Patient was started on a Fentanyl 25mcg patch q 3 days. Last dose Hydrocodone 5/325 administered on 07/21/17 at 1400hrs. Patient still requiring Zofran 4mg for nausea control, frequency changed to q 6 hrs and Compazine 10mg IVP q 8 hrs PRN also added . Patient has not required any prn dose. Edema noted to right arm. Upper extremity ultrasound revealed no evidence of DVT patient`s hemoglobin trending down and platelets as of 07/20/17. Discharge home currently on hold. Patient negative for HIT 07/18/17. Hemoccult stool negative. No report of any signs of hemorrhaging. Oncology suspecting low count is due to chemotherapy. Laboratory workup today revealed WBC 5.5, hemoglobin 7.7 , hematocrit 22.4, platelet count 73. Patient has expressed that she would like to continue with aggressive treatment and would like to receive her radiation therapy here instead of driving to [facility]. Case discussed with bedside RN. . Family/friend interactions Patient's at bedside . Advance Directives Living Will: Completed, but not made available Advance Directive Specifics Health Care Surrogate(s): [facility]- Spouse- Damian Matthew- [phone] (home)/[phone](cell) Alternate QJV-ryvpipvs-Cutsv-Ann, Jrpcetu-[phone] . Objective Vital Signs Date Time Temp Pulse Resp B/P (MAP) Pulse Ox O2 Delivery O2 Flow Rate FiO2 07/21/17 16:00 98.2 68 17 145/82 (103) 97 07/21/17 12:00 97.0 78 16 155/82 (106) 100 07/21/17 08:48 97.5 73 16 127/71 (89) 94 07/21/17 04:04 69 5/7/18 03:31 98.0 60 16 158/77 (104) 98 07/21/17 00:18 48 07/20/17 23:35 98.0 57 16 150/73 (98) 96 07/20/17 20:12 97.8 65 16 132/68 (89) 97 07/20/17 19:28 59 07/20/17 17:22 98.2 79 149/89 (109) 95 Intake & Output 07/21/17 07/21/17 07:00 19:00 Intake Total 2420 ml Output Total 1175 ml 1350 ml Balance 1245 ml -1350 ml Intake Oral 420 ml IV Total 2000 ml Output Urine Total 1175 ml 1350 ml Physical Exam CONSTITUTIONAL/GENERAL: This is an adequately nourished, in no apparent distress , endorsing good appetite today. TUBES/LINES/DRAINS: [id number] right chest wall, Germain catheter, SCDs SKIN: Rash to chest wall, upper back and face improved. Patient itchy. No wounds seen anteriorly. Not diaphoretic. EYES: Pupils equal and round and reactive. Extraocular motions intact. No scleral icterus. No injection or drainage. Fundi not examined. ENT: Hearing grossly normal. Nose without bleeding or purulent drainage. Moist oral mucosa CARDIOVASCULAR: S1, S2 normal; no murmurs, gallops, or rubs. No JVD. Peripheral pulses symmetric. RESPIRATORY/CHEST: Symmetric, unlabored respirations. Diminished in the bases. No wheezes, rales, or rhonchi. GENITOURINARY: Without palpable bladder distension. Germain catheter in place. MUSCULOSKELETAL: Extremities without clubbing, cyanosis, or edema. No calf tenderness. No mottling or clubbing. NEUROLOGICAL: Awake and alert. Follows commands. Cognitively sharp. Moves all extremities. . Diagnostic Tests Laboratory Laboratory Tests Test 07/19/17 08:50 07/20/17 04:38 07/20/17 12:00 07/21/17 03:50 White Blood Count 11.0 TH/MM3 (4.0-11.0) 6.3 TH/MM3 (4.0-11.0) 5.5 TH/MM3 (4.0-11.0) Red Blood Count 3.07 MIL/MM3 (4.00-5.30) 2.63 MIL/MM3 (4.00-5.30) 2.64 MIL/MM3 (4.00-5.30) Hemoglobin 8.6 GM/DL (11.6-15.3) 7.5 GM/DL (11.6-15.3) 7.7 GM/DL (11.6-15.3) Hematocrit 25.3 % (35.0-46.0) 22.1 % (35.0-46.0) 22.4 % (35.0-46.0) Mean Corpuscular Volume 82.4 FL (80.0-100.0) 84.2 FL (80.0-100.0) 85.0 FL (80.0-100.0) Mean Corpuscular Hemoglobin 28.1 PG (27.0-34.0) 28.4 PG (27.0-34.0) 29.1 PG (27.0-34.0) Mean Corpuscular Hemoglobin Concent 34.1 % (32.0-36.0) 33.7 % (32.0-36.0) 34.2 % (32.0-36.0) Red Cell Distribution Width 15.9 % (11.6-17.2) 16.2 % (11.6-17.2) 16.2 % (11.6-17.2) Platelet Count 95 TH/MM3 (150-450) 59 TH/MM3 (150-450) 73 TH/MM3 (150-450) Mean Platelet Volume 8.1 FL (7.0-11.0) 8.0 FL (7.0-11.0) 8.1 FL (7.0-11.0) Neutrophils (%) (Auto) 79.2 % (16.0-70.0) 72.9 % (16.0-70.0) 73.1 % (16.0-70.0) Lymphocytes (%) (Auto) 14.4 % (9.0-44.0) 16.7 % (9.0-44.0) 17.4 % (9.0-44.0) Monocytes (%) (Auto) 6.0 % (0.0-8.0) 10.0 % (0.0-8.0) 9.2 % (0.0-8.0) Eosinophils (%) (Auto) 0.2 % (0.0-4.0) 0.3 % (0.0-4.0) 0.2 % (0.0-4.0) Basophils (%) (Auto) 0.2 % (0.0-2.0) 0.1 % (0.0-2.0) 0.1 % (0.0-2.0) Neutrophils # (Auto) 8.7 TH/MM3 (1.8-7.7) 4.6 TH/MM3 (1.8-7.7) 4.0 TH/MM3 (1.8-7.7) Lymphocytes # (Auto) 1.6 TH/MM3 (1.0-4.8) 1.1 TH/MM3 (1.0-4.8) 1.0 TH/MM3 (1.0-4.8) Monocytes # (Auto) 0.7 TH/MM3 (0-0.9) 0.6 TH/MM3 (0-0.9) 0.5 TH/MM3 (0-0.9) Eosinophils # (Auto) 0.0 TH/MM3 (0-0.4) 0.0 TH/MM3 (0-0.4) 0.0 TH/MM3 (0-0.4) Basophils # (Auto) 0.0 TH/MM3 (0-0.2) 0.0 TH/MM3 (0-0.2) 0.0 TH/MM3 (0-0.2) CBC Comment AUTO DIFF AUTO DIFF AUTO DIFF Differential Comment AUTO DIFF CONFIRMED AUTO DIFF CONFIRMED FINAL DIFF MANUAL Toxic Granulation 1+ (NORMAL) 2+ (NORMAL) Platelet Estimate LOW (NORMAL) LOW (NORMAL) LOW (NORMAL) Platelet Morphology Comment NORMAL (NORMAL) NORMAL (NORMAL) NORMAL (NORMAL) Blood Urea Nitrogen 13 MG/DL (7-18) Creatinine 0.73 MG/DL (0.50-1.00) Random Glucose 133 MG/DL (74-106) Calcium Level 7.5 MG/DL (8.5-10.1) Sodium Level 142 MEQ/L (136-145) Potassium Level 3.2 MEQ/L (3.5-5.1) Chloride Level 109 MEQ/L (98-107) Carbon Dioxide Level 25.8 MEQ/L (21.0-32.0) Anion Gap 7 MEQ/L (5-15) Estimat Glomerular Filtration Rate 79 ML/MIN (>89) Iron Level 53 MCG/DL (50-170) Total Iron Binding Capacity 181 MCG/DL (250-450) Percent Iron Saturation 29.3 % (20-50) Ferritin 1545 NG/ML (8-252) Differential Total Cells Counted 100 Neutrophils % (Manual) 65 % (16-70) Band Neutrophils % 16 % (0-6) Lymphocytes % 10 % (9-44) Monocytes % 6 % (0-8) Eosinophils % 1 % (0-4) Neutrophils # (Manual) 4.5 TH/MM3 (1.8-7.7) Myelocytes 1 % (0-0) Nucleated Red Blood Cells 1 /100 WBC (0-0) Plasma Cells 1 % (0-0) Result Diagram: 07/21/17 0350 07/20/17 1200 Microbiology Microbiology Date/Time Source Procedure Growth Status 07/20/17 15:35 Stool Stool Stool Occult Blood (YANCY) - Final HEMOCCULT NEGATIVE Complete Imaging Last 72 hours Impressions Upper Extremity Ultrasound 07/19/17 0000 Signed Impressions: Service Date/Time: Wednesday, July 19, 2017 15:16 - CONCLUSION: No evidence of right upper extremity DVT. Navarro Iqbal MD Assessment and Plan Disease Oriented Problem List: (1) Transitional cell carcinoma of ureter (2) Breast CA (3) Febrile neutropenia (4) UTI (urinary tract infection) (5) Depression (6) Irritable bowel syndrome Symptom Scale: (1) Pain Comment: Complaining of pain to right knee. NM bone scan revealed multifocal high of increased radiotracer activity suggestive of metastatic disease involving right distal humerus, right clavicle, right scapula, bilateral distal femur, and right posterior ribs. Patient currently undergoing chemotherapy. . (2) Generalized weakness 0-10 Scale: Unable to quantify Comment: Patient is currently undergoing chemotherapy and has low hemoglobin . (3) Nausea 0-10 Scale: Unable to quantify Comment: Patient currently on chemotherapy, and is been complaining of nausea. . (4) Debility 0-10 Scale: Unable to quantify Comment: Progressive . Pertinent Non-Medical Issues Psychosocial:Patient was born and raised in [place], [place]. She moved to [place] in May of 1984. Patient is to a of 46 years. 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 She has 1 grandson. Patient enjoys boating and camping with her family. Spiritual: Patient is Christian-she has a local friend who visits and is a Senior Quality Assurance Specialist. Legal: Patient is completed a living will- will bring copy from home Ethical issues impacting care: None identified at this time . Important Contacts Spouse-Damian Castro -[phone] (home)/[phone](other) Daughter-Matthew Clarke-[phone] . 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 Patient presented to the ER by ambulance on 07/11/17 complaining of generalized malaise and fever with a temperature of 101F. Patient is currently on chemotherapy for breast cancer and she follows at [facility]. Clinical course complicated with possible metastatic disease to bone, urinary tract infection, and febrile neutropenia. Given ongoing comorbidities patient remains at high risk for further complications, deterioration and decline. . Code Status: No Code Plan PLAN: Legal decision maker: Patient is able to participate in medical decision making. In the event that patient is incapacitated, she has designated her Damian Castro as her healthcare surrogate and her daughter Tricia Castro as her alternate healthcare surrogate. Goals: Aggressive short of no code. CODE STATUS: No code DNR/DNI Patient has expressed that she would like to continue with aggressive treatment and would like to receive her radiation therapy here instead of driving to [facility]. SYMPTOMS: * Pain: Patient complaining of pain to right knee. NM bone scan revealed multifocal high of increased radiotracer activity suggestive of metastatic disease involving right distal humerus, right clavicle, right scapula, bilateral distal femur, and right posterior ribs. Patient currently undergoing chemotherapy. Patient his hydrocodone/acetaminophen 5/325 q 4 hrs prn. Patient was started on a Fentanyl 25mcg patch q 3 days. Last dose Hydrocodone 5 /325 administered on 07/21/17 at 1400hrs. No recommendations. 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 Complaining of nausea. Nausea managed with ondansetron 4 mg every 6 hrs prn. Currently denies nausea. Compazine 10mg IVP also started for N/V. Patient has not required prn. Patient endorsing improved appetite. Patient was also started on Prednisone which also boosts her appetite. No recommendations. * Generalized weakness: Anemia secondary to chemotherapy. 1 unit pRBC transfused 07/16 for Hgb 6.9. Hgb trending down. Hemoccult negative. Hgb 07/21=7.7. Continue to monitor hemoglobin. * Debility: Progressive. 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 Patient currently using a rolling walker. PT saw patient on 07/18/17- recommended discharging patient home with no PT. Increase out of bed as tolerated. Palliative care will continue to follow the patient during hospital course as condition evolves, to assist patient/decision-maker with understanding of their medical conditions, weighing benefits/burdens of treatment options, for clarification of goals of treatment. Additionally will assist with any symptoms of palliative concern Attestation To help prompt me to consider important information that might be impacting today's encounter and assessment, information from prior notes written by myself or my colleagues may have been "brought forward" into today's note. My signature on this note, however, is an attestation that I personally performed the exam, history, and/or decision-making noted today, and, unless otherwise indicated, the interactions with patient, family, and staff as well as the review of records all occurred today. I also attest that the listed assessment and stated plan reflect my best clinical judgment today based on the combination of historical information, prior notes, and today's exam/ interactions. When time spent is documented, it refers only to time spent today by the signer, or if indicated, combined time spent today by collaborating physician/nurse practitioner. Feliberto Freeman July 21, 2017 17:30
[2017-07-22] VITALS (9 sets, daily range): BP systolic 148–158; BP diastolic 73–84; PULSE 75–91; RESP 16; TEMP 98.2–99.1; O2SAT 93–99
--- NOTE | 2017-07-22 00:06 | PD.ONC.PN ---
Subjective Subjective Remarks Resting comfortably in bed Patient seen at bedside at 9:30 pm on 07/21/2017 Objective Data Date Time Temp Pulse Resp B/P (MAP) Pulse Ox O2 Delivery O2 Flow Rate FiO2 07/21/17 20:57 97.9 79 16 148/86 (106) 100 07/21/17 20:05 72 07/21/17 16:00 98.2 68 17 145/82 (103) 97 07/21/17 12:00 97.0 78 16 155/82 (106) 100 07/21/17 08:48 97.5 73 16 127/71 (89) 94 07/21/17 04:04 69 07/21/17 03:31 98.0 60 16 158/77 (104) 98 07/21/17 00:18 48 Result Diagram: 07/21/17 0350 07/20/17 1200 Laboratory Results Laboratory Tests Test 07/21/17 03:50 White Blood Count 5.5 TH/MM3 Red Blood Count 2.64 MIL/MM3 Hemoglobin 7.7 GM/DL Hematocrit 22.4 % Mean Corpuscular Volume 85.0 FL Mean Corpuscular Hemoglobin 29.1 PG Mean Corpuscular Hemoglobin Concent 34.2 % Red Cell Distribution Width 16.2 % Platelet Count 73 TH/MM3 Mean Platelet Volume 8.1 FL Neutrophils (%) (Auto) 73.1 % Lymphocytes (%) (Auto) 17.4 % Monocytes (%) (Auto) 9.2 % Eosinophils (%) (Auto) 0.2 % Basophils (%) (Auto) 0.1 % Neutrophils # (Auto) 4.0 TH/MM3 Lymphocytes # (Auto) 1.0 TH/MM3 Monocytes # (Auto) 0.5 TH/MM3 Eosinophils # (Auto) 0.0 TH/MM3 Basophils # (Auto) 0.0 TH/MM3 CBC Comment AUTO DIFF Differential Total Cells Counted 100 Neutrophils % (Manual) 65 % Band Neutrophils % 16 % Lymphocytes % 10 % Monocytes % 6 % Eosinophils % 1 % Neutrophils # (Manual) 4.5 TH/MM3 Myelocytes 1 % Nucleated Red Blood Cells 1 /100 WBC Differential Comment FINAL DIFF MANUAL Plasma Cells 1 % Toxic Granulation 2+ Platelet Estimate LOW Platelet Morphology Comment NORMAL Culture Results Microbiology Date/Time Source Procedure Growth Status 07/20/17 15:35 Stool Stool Stool Occult Blood (YANCY) - Final HEMOCCULT NEGATIVE Complete Administered Medications Medications (Trade) Dose Ordered Sig/Prabha Route PRN Reason Start Time Stop Time Status Last Admin Dose Admin Sodium Chloride 1,000 ml @ 100 mls/hr Q10H IV 07/12/17 02:20 07/21/17 17:10 Sodium Chloride (NS Flush) 2 ml UNSCH PRN IV FLUSH FLUSH AFTER USING IV ACCESS 07/12/17 02:30 07/21/17 07:05 Sodium Chloride (NS Flush) 2 ml BID IV FLUSH 07/12/17 09:00 07/20/17 21:50 Acetaminophen (Tylenol) 650 mg Q6H PRN PO FEVER/PAIN SCALE 1 TO 2 07/12/17 02:30 07/16/17 17:49 Acetaminophen/ Hydrocodone Bitart ([place] 5-325 Mg) 1 tab Q4H PRN PO PAIN SCALE 3 TO 5 07/12/17 02:30 07/21/17 14:01 Senna/Docusate Sodium (Katheryn-Colace) 1 tab BID PO 07/12/17 09:00 07/21/17 21:02 Magnesium Hydroxide (Milk Of Yeni Liihral) 30 ml Q12H PRN PO Mild constipation 07/12/17 02:30 07/19/17 20:18 Fluticasone Propionate (Flonase Abhi Spr) 1 spray DAILY EACH NARE 07/13/17 09:00 07/21/17 10:21 Meclizine HCl (Antivert) 25 mg Q6H PRN PO VERTIGO 07/12/17 12:30 07/21/17 10:20 Multivitamins (Theragran) 1 tab DAILY PO 07/13/17 09:00 07/21/17 09:06 Heparin Sodium (Porcine) (Heparin Inj) 5,000 units Q8HR SQ 07/12/17 22:00 Future Hold 07/13/17 06:00 Petrolatum/Zinc Oxide (Sensi-Care Protective Barrier Oint) 1 applic DAILY TOPICAL 07/13/17 09:00 07/21/17 09:00 Levofloxacin (Levaquin) 750 mg DAILY PO 07/13/17 13:00 07/21/17 09:07 Hydrocortisone (Hydrocortisone 1% Cream) 1 applic BID TOPICAL 07/13/17 21:00 07/21/17 21:02 Diphenhydramine HCl (Benadryl) 25 mg Q6H PRN PO ITCHING 07/15/17 16:15 07/15/17 17:40 Acetaminophen (Tylenol) 650 mg Q4H PRN PO SEE LABEL COMMENTS 07/16/17 10:15 07/16/17 13:25 Diphenhydramine HCl (Benadryl) 25 mg Q4H PRN PO SEE LABEL COMMENTS 07/16/17 10:15 07/16/17 13:25 Folic Acid (Folate) 1 mg DAILY PO 07/17/17 09:00 07/21/17 09:06 Cyanocobalamin (Vitamin B12) 1,000 mcg DAILY PO 07/17/17 09:00 07/21/17 09:06 Prednisone (Deltasone) 50 mg DAILY PO 07/18/17 09:00 07/22/17 08:59 07/20/17 08:52 Ondansetron HCl (Zofran Inj) 4 mg Q6H PRN IVP NAUSEA OR VOMITING 07/20/17 09:00 07/21/17 14:01 Prochlorperazine Edisylate (Compazine Inj) 10 mg Q8H PRN IV PUSH nausea 07/20/17 09:30 07/21/17 18:19 Fentanyl (Duragesic 25 Mcg Patch.72 Hr) 1 patch Q3D T-DERMAL 07/20/17 10:00 07/20/17 11:08 Objective Remarks GENERAL: Well-nourished, well-developed patient. SKIN: Warm and dry. HEAD: Normocephalic. EYES: No scleral icterus. No injection or drainage. NECK: Supple, trachea midline. No JVD or lymphadenopathy. LYMPHATIC: No adenopathy. CARDIOVASCULAR: Regular rate and rhythm without murmurs. RESPIRATORY: Breath sounds equal bilaterally. No accessory muscle use. GASTROINTESTINAL: Abdomen soft, non-tender, nondistended. EXTREMITIES: No cyanosis, or edema. MUSCULOSKELETAL: Adequate muscle tone. NEUROLOGICAL: No obvious focal deficit. Awake, alert, and oriented x3. PSYCHIATRIC: Appropriate mood and affect; insight and judgment normal. Assessment/Plan Problem List: (1) Febrile neutropenia ICD Codes: D70.9 - Neutropenia, unspecified; R50.81 - Fever presenting with conditions classified elsewhere Plan: -- Febrile neutropenia --Urine culture ++Pseudomonas --Blood cultures no growth --on vancomycin, Azactam, Levaquin Patient received Alimta on 07/07/17. 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 Cytopenia: most likely due to chemotherapy. vitamin b12, folate replete. No evidence of TMA, DIC, HIT. Platelet count slowly uptrending. 2. Febrile neutropenia: with urine culture positive of pseudomonas. Blood cultures with no growth. Resolved 3. 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 Previously progressed on cisplatin and gemcitabine and atezolizumab. Shawnee De La Torre MD July 22, 2017 00:06
[2017-07-22] MEDS: SODIUM CHLOR 0.9% 1000 ML INJ 1,000 ML IV SCH (01:00)
[2017-07-22] MEDS: ACETAMINOPHEN/HYDROcodone 325 MG/5 MG TAB PO PRN ×3 (01:00→18:41)
[2017-07-22 06:19] LABS: AUTOMATED NEUTROPHIL # 3.1 TH/MM3 (1.8-7.7); BASOPHIL % 0.3 % (0.0-2.0); EOSINOPHIL # 0.2 TH/MM3 (0-0.4); EOSINOPHIL % 5.1 % (0.0-4.0); HEMATOCRIT 24.5 % (35.0-46.0); HEMOGLOBIN 8.4 GM/DL (11.6-15.3); LYMPH % 21.6 % (9.0-44.0); MEAN CORPUSCULAR HEMOGLOBIN 29.3 PG (27.0-34.0); MEAN CORPUSCULAR HGB CONC 34.1 % (32.0-36.0); MEAN PLATELET VOLUME 7.4 FL (7.0-11.0); MONO % 8.5 % (0.0-8.0); MONOCYTE # 0.4 TH/MM3 (0-0.9); NEUT % 64.5 % (16.0-70.0); PLATELET COUNT 106 TH/MM3 (150-450); RED BLOOD COUNT 2.85 MIL/MM3 (4.00-5.30); RED CELL DISTRIBUTION WIDTH 16.2 % (11.6-17.2); WHITE BLOOD COUNT 4.8 TH/MM3 (4.0-11.0)
[2017-07-22 06:40] LABS: BICARBONATE 28.1 MEQ/L (21.0-32.0); CALCIUM 7.7 MG/DL (8.5-10.1); CREATININE 0.69 MG/DL (0.50-1.00)
[2017-07-22 07:46] LABS: BANDS 11 % (0-6); LYMPHOCYTES 13 % (9-44); METAMYELOCYTES 3 % (0-1); MONOCYTES 8 % (0-8); MYELOCYTES 1 % (0-0); NEUTROPHIL # MANUAL DIFF 3.6 TH/MM3 (1.8-7.7); PLASMA CELLS 1 % (0-0); POLYS (SEG NEUTROPHILS) 59 % (16-70)
[2017-07-22] MEDS: ONDANSETRON HCL 4 MG/2 ML VIAL IVP PRN ×2 (08:12→18:41)
[2017-07-22] MEDS: CYANOCOBALAMIN 1,000 MCG TAB PO SCH (08:13)
[2017-07-22] MEDS: MULTIVITAMIN TAB PO SCH (08:13)
[2017-07-22] MEDS: FOLIC ACID 1 MG TAB PO SCH (08:13)
[2017-07-22] MEDS: DOCUSATE SODIUM 50 MG/SENNA 8.6 MG TAB PO SCH ×2 (08:13→19:59)
[2017-07-22] MEDS: PETROLATUM 49%/ZINC OXIDE 15% 4 OUNCE TUBE TOPICAL SCH (09:00)
[2017-07-22] MEDS: HYDROCORTISONE 1% CREAM 30 GM TOPICAL SCH ×2 (09:00→19:59)
[2017-07-22] MEDS: FLUTICASONE PROPIONATE 50 MCG/ACT 16 GM NASAL SPRAY EACH NARE SCH (09:00)
[2017-07-22] MEDS: SODIUM CHLORIDE 0.9% FLUSH 10 ML FLUSH IV FLUSH SCH ×2 (09:00→19:59)
--- NOTE | 2017-07-22 09:27 | RADRPT ---
EXAM DATE/TIME: 07/22/2017 08:05 [facility] COMPARISON: No previous studies available for comparison. INDICATIONS : Bilateral leg swelling. MEDICAL HISTORY : Breast cancer. TIA. Hypercholesterol. Hypertension. SURGICAL HISTORY : Mastectomy. Tubal ligation. Cystectomy. ENCOUNTER: Subsequent ACUITY: 1 week PAIN SCORE: 2/10 LOCATION: Bilateral leg. TECHNIQUE: Venous ultrasound of the left and right leg was performed from the inguinal ligament to the proximal calf. Real-time, color Doppler and spectral tracing, compression and augmentation techniques were us ed. FINDINGS: RIGHT LEG: There is a large apparent common femoral artery pseudoaneurysm measuring 6.1 x 3.5 x 1.9 cm. The pseu doaneurysm appears to have a small neck measuring approximate 5 mm and is largely thrombosed. There i s normal compressibility of the deep venous system from the inguinal region to the proximal calf. No echogenic clot is seen in the lumen of the common femoral, femoral, popliteal, and posterior tibial veins. There is a normal response of the venous system to proximal and distal augmentation and respi ration. LEFT LEG: There are at least 2 apparent femoral pseudoaneurysms. There is a bilobed 5.3 x 3.0 x 3.3 cm pseudoan eurysm arising from the common femoral artery with a 3 mm neck. This aneurysm is largely thrombosed. There is a second suspected pseudoaneurysm which is not measured but is larger than 2 cm. There is mi xed venous waveform which may reflect an associated AV fistula although a venous connection is not im aged. There is normal compressibility of the deep venous system from the inguinal region to the proxi mal calf. No echogenic clot is seen in the lumen of the common femoral, femoral, popliteal, and post erior tibial veins. There is a normal response of the venous system to proximal and distal augmentat ion and respiration. CONCLUSION: 1. No sonographic evidence for lower extremity DVT. 2. There are bilateral apparent femoral artery pseudoaneurysms. This includes a 6.1 x 3.5 x 1.9 cm r ight common femoral artery pseudoaneurysm with 5 mm neck which is largely thrombosed, bilobed 5.3 x 3 .0 x 3.3 cm left common from artery pseudoaneurysm with a 3 mm neck which is largely thrombosed and a pseudoaneurysm arising from the left superficial femoral artery that was not measured but is larger than 2 cm with mixed venous waveform raising possibility for AV fistula although a venous connection is not visualized. Lázaro Meehan MD on July 22, 2017 at 9:06 Board Certified Radiologist. This report was verified electronically.
--- NOTE | 2017-07-22 14:41 | PD.CAR.PN ---
CVT Progress Note Subjective/Hospital Course: Patient evaluated full consult dictated This patient does have indeed bilateral inguinal masses which could be pseudoaneurysms however I do not feel any pulsation in these so theoretically it could be a lymph node packet with a wide stalk. Patient does not remember having had any vascular procedures on either side other than biopsies but then again Óscar-Cut biopsy can sometimes injure the vessel and lead to pseudoaneurysm. Either way will do pelvic CTA with contrast and see if these are indeed pseudoaneurysms, but I don't think so, based on my clinical examination. On the other hand, if there is a pseudoaneurysm present, degree of flow will determine whether this is something we can embolize with some thrombin or this has to be surgically approached. This unfortunate lady has enough medical problems as it is and piling up more surgeries is probably not the best idea unless absolutely necessary Will evaluate CTA and advise Please do not discharge patient today Objective: Vital Signs Date Time Temp Pulse Resp B/P (MAP) Pulse Ox O2 Delivery O2 Flow Rate FiO2 07/22/17 12:20 98.4 84 16 148/80 (102) 93 07/22/17 07:56 98.2 91 16 158/84 (108) 94 07/22/17 04:03 98.4 86 16 154/78 (103) 98 07/22/17 04:01 76 07/22/17 00:40 98.2 83 16 153/80 (104) 98 07/22/17 00:10 75 07/21/17 20:57 97.9 79 16 148/86 (106) 100 07/21/17 20:05 72 07/21/17 16:00 98.2 68 17 145/82 (103) 97 Labs: Laboratory Tests Test 07/22/17 04:10 White Blood Count 4.8 TH/MM3 (4.0-11.0) Red Blood Count 2.85 MIL/MM3 (4.00-5.30) Hemoglobin 8.4 GM/DL (11.6-15.3) Hematocrit 24.5 % (35.0-46.0) Mean Corpuscular Volume 86.0 FL (80.0-100.0) Mean Corpuscular Hemoglobin 29.3 PG (27.0-34.0) Mean Corpuscular Hemoglobin Concent 34.1 % (32.0-36.0) Red Cell Distribution Width 16.2 % (11.6-17.2) Platelet Count 106 TH/MM3 (150-450) Mean Platelet Volume 7.4 FL (7.0-11.0) Neutrophils (%) (Auto) 64.5 % (16.0-70.0) Lymphocytes (%) (Auto) 21.6 % (9.0-44.0) Monocytes (%) (Auto) 8.5 % (0.0-8.0) Eosinophils (%) (Auto) 5.1 % (0.0-4.0) Basophils (%) (Auto) 0.3 % (0.0-2.0) Neutrophils # (Auto) 3.1 TH/MM3 (1.8-7.7) Lymphocytes # (Auto) 1.0 TH/MM3 (1.0-4.8) Monocytes # (Auto) 0.4 TH/MM3 (0-0.9) Eosinophils # (Auto) 0.2 TH/MM3 (0-0.4) Basophils # (Auto) 0.0 TH/MM3 (0-0.2) CBC Comment AUTO DIFF Differential Total Cells Counted 100 Neutrophils % (Manual) 59 % (16-70) Band Neutrophils % 11 % (0-6) Lymphocytes % 13 % (9-44) Monocytes % 8 % (0-8) Eosinophils % 4 % (0-4) Neutrophils # (Manual) 3.6 TH/MM3 (1.8-7.7) Metamyelocytes 3 % (0-1) Myelocytes 1 % (0-0) Differential Comment FINAL DIFF MANUAL Plasma Cells 1 % (0-0) Platelet Estimate LOW (NORMAL) Platelet Morphology Comment NORMAL (NORMAL) Blood Urea Nitrogen 11 MG/DL (7-18) Creatinine 0.69 MG/DL (0.50-1.00) Random Glucose 91 MG/DL (74-106) Calcium Level 7.7 MG/DL (8.5-10.1) Sodium Level 144 MEQ/L (136-145) Potassium Level 3.6 MEQ/L (3.5-5.1) Chloride Level 110 MEQ/L (98-107) Carbon Dioxide Level 28.1 MEQ/L (21.0-32.0) Anion Gap 6 MEQ/L (5-15) Estimat Glomerular Filtration Rate 84 ML/MIN (>89) Result Diagram: 07/22/17 0410 07/22/17 0410 Kylah Osman MD July 22, 2017 14:40
--- NOTE | 2017-07-22 14:57 | HHI.PR ---
Subjective Remarks Follow up on multiple medical problems the patient is immunocompromised on chemotherapy with neutropenic fever thrombocytopenia. Concern for HIT Patient however with bilateral inguinal masses, nonpainful. Discussed with Dr Larsen oncology. Plan for US for further evaluation Patient denies having any pain . Says she feesl much better todau and she does hopes to go home today Rash imprpved significantly Edema in her right arm imprpving some, no more pain in her right arm No fever or chills Objective Vitals Vital Signs Date Time Temp Pulse Resp B/P (MAP) Pulse Ox O2 Delivery O2 Flow Rate FiO2 07/22/17 12:20 98.4 84 16 148/80 (102) 93 07/22/17 07:56 98.2 91 16 158/84 (108) 94 07/22/17 04:03 98.4 86 16 154/78 (103) 98 07/22/17 04:01 76 07/22/17 00:40 98.2 83 16 153/80 (104) 98 07/22/17 00:10 75 07/21/17 20:57 97.9 79 16 148/86 (106) 100 07/21/17 20:05 72 07/21/17 16:00 98.2 68 17 145/82 (103) 97 I/O 07/21/17 07/21/17 07/21/17 07/22/17 07/22/17 07/22/17 07:00 15:00 23:00 07:00 15:00 23:00 Intake Total 1420 ml 1139 ml 1000 ml Output Total 1175 ml 1350 ml 1150 ml 3100 ml 1800 ml Balance 245 ml -1350 ml -11 ml -2100 ml -1800 ml Intake Oral 420 ml IV Total 1000 ml 1139 ml 1000 ml Output Urine Total 1175 ml 1350 ml 1150 ml 3100 ml 1800 ml # Bowel Movements 1 Result Diagram: 07/22/17 0410 07/22/17 0410 Imaging Last Impressions Lower Extremity Ultrasound 07/22/17 0000 Signed Impressions: Service Date/Time: Saturday, July 22, 2017 08:05 - CONCLUSION: 1. No sonographic evidence for lower extremity DVT. 2. There are bilateral apparent femoral artery pseudoaneurysms. This includes a 6.1 x 3.5 x 1.9 cm right common femoral artery pseudoaneurysm with 5 mm neck which is largely thrombosed, bilobed 5.3 x 3.0 x 3.3 cm left common from artery pseudoaneurysm with a 3 mm neck which is largely thrombosed and a pseudoaneurysm arising from the left superficial femoral artery that was not measured but is larger than 2 cm with mixed venous waveform raising possibility for AV fistula although a venous connection is not visualized. Lázaro Meehan MD Upper Extremity Ultrasound 07/19/17 0000 Signed Impressions: Service Date/Time: Wednesday, July 19, 2017 15:16 - CONCLUSION: No evidence of right upper extremity DVT. Navarro Iqbal MD Chest X-Ray 07/12/17 0000 Signed Impressions: Service Date/Time: Wednesday, July 12, 2017 01:19 - CONCLUSION: The lungs are clear. Eleazar Mora MD Objective Remarks GENERAL: Awake and alert. Laying in bed. Family at bedside SKIN: + Erythematous macular rash over right anterior chest wall/shoulder, worsening, now on the neck, scalp and forehead. CARDIOVASCULAR: Regular rate and rhythm. No obvious murmurs to auscultation. RESPIRATORY: No wheezing. Clear to auscultation. Breath sounds equal bilaterally. GASTROINTESTINAL: Abdomen soft, non-tender, nondistended. BS normal. MUSCULOSKELETAL: right arm edema. : bilateral inguinal masses no pain. Procedures none A/P Problem List: (1) Fever ICD Code: R50.9 - Fever, unspecified (2) UTI (urinary tract infection) ICD Code: N39.0 - Urinary tract infection, site not specified (3) Breast CA ICD Code: C50.919 - Malignant neoplasm of unspecified site of unspecified female breast Assessment and Plan 71-year-old female with a PMH of HTN, Hyperlipidemia, Depression, IBS and Breast CA on Chemo who presented to the ER with complaints of generalized malaise and fever. Bilateral inguinal masses. ? Pseudoaneurysm. Discussed with hem/onc. US shows poss pseudoaneurysms patient with low PLT and low HGB and at risk of bleeding. Also patient doesn't have any history of intervention. Consult vascular surgeon for evaluation, seen by Dr Osman , appreciate recs. pelvic CTA with contrast and see if these are indeed pseudoaneurysms Degree of flow will determine whether this is something we can embolize with some thrombin or this has to be surgically approached, however patient with low PLT and low HGB and at very high risk. Monitor closely Work up for HIT by hem/onc . Noted with edema right arm, US doppler no DVT . Elevate arm. Neutropenic fever +immunocompromised on chemotherapy White count improved CXR without acute findings. Blood cultures with no growth x 4 days. Flu antigen neg.Legionella and pneumococcal antigen negative. Urine culture growing Pseudomonas Oncology following. Appreciate assistance. s/p vancomycin, aztreonam, and continue Levaquin per IDs recommendations. Monitor rash as it could be reaction to antibiotic Repeat blood cultures negative to date. Continue to monitor for fevers. Continue IV hydration, encourage PO Patients platelets are low, HGB low concern for HIT. Discussed with hem/onc. Work up negative for HIT. No iron deficiency, normal B12 and folate. Stool normal color. Likely low PLT and HGB is chemo related Anemia, secondary to chemotherapy Thrombocytopenia Patient has been transfused. Monitor H&H No signs of active bleeding -Hold Heparin -Monitor for any evidence of bleeding Rash noted over anterior chest/neck and face/scalp -ID following. Likely allergic reaction . the rash is worsening. Will give one dose of Solu-Medrol on the 125 mg 1 time. Continue prednisone 50 mg daily for 4-5 days. Rash improved significantly Pseudomonal UTI: UA with mod leukocytes, 7 WBCs, occ bacteria. Patient has chronic indwelling herrera. Denies any c/o abdominal pain. Urine culture positive for Pseudomonas pansensitive. Continue antibiotics Right ureter CA, s/p open right nephroureterectomy with excision of bladder cuff : chronic indwelling herrera. Follows with Dr. Lopez. Has appt Friday to have herrera changed. Difficult Herrera exchange per patient report, only has one nurse at Dr. Lopez's office who is able to do Breast CA s/p mastectomy: follows at [facility], currently on chemotherapy, outpatient follow up at [facility] as scheduled to resume treatment. -Continue pain management -Continue with PT/OT -Consult palliative care-I did speak with palliative care and patient would like to be a DNR CKD Creatinine appears to near baseline. Monitor. Avoid nephrotoxic agent Hx of DM: not on any diabetic meds HgbA1c 5.3 Constipation, Bowel regimen in place DVT Prophylaxis: SCD Discussed with the patient, family at bedside, nurse, hematology family protection specialist Improving. DC home when cleared by hem/onc. Work up for HIT by hem/onc . Edema right arm, US doppler no DVT Plan to DC home when cleared by hemonc and vasc surgeon. Patient with possible pseudoaneurysm . PT evaluated patient no need of PT at DC. Patient improved. DC home to follow up as OP with PCP and consultants To follow up as OP with PCP and consultants. Patient says she wants to pursue aggressive treatment and will follow up with her oncology Dr in [place], pt. has already an appointment. Lillie Bradley MD July 22, 2017 14:57
--- NOTE | 2017-07-22 15:02 | MB ---
cc: Kylah Osman MD DATE: 07/22/2017 CONSULTING PHYSICIAN: Dr. Osman, Vascular Surgery. REASON FOR CONSULTATION: Bilateral groin pseudoaneurysm versus masses. HISTORY OF PRESENT ILLNESS: This 72-year-old lady is known to have a high grade transitional cell carcinoma of the ureter with metastasis. She has undergone several courses with chemotherapy and was admitted now with metastasis to the right humerus and shoulder for which she is to undergo radiation therapy. In the process of workup, she was found to have questionable pseudoaneurysms of both groins connected to the common femoral arteries. The question arises what this is and how this can be interpreted in the context of the clinical findings. PAST MEDICAL HISTORY: As above. Noted is a high grade transitional cell carcinoma with metastasis. The patient's surgical history is of the right nephrectomy. The patient is currently on chemotherapy. Medical history is further positive for hypertension, hyperlipidemia, breast cancer in 1999. PAST SURGICAL HISTORY: Cystoscopy, tubal ligation, right mastectomy, right nephrectomy and multiple lymph node biopsies in the groin, as she states. SOCIAL HISTORY: The patient does not smoke or drink. PHYSICAL EXAMINATION: GENERAL: Reveals a pleasant, 71-year-old lady, awake, alert and oriented. HEAD: Normocephalic. No trauma to head. Pupils equal, reactive. Extraocular muscles intact. NECK: Supple. Bilateral carotid pulses. No bruits. Some nodes noted in the supraclavicular areas which are very small and scattered. CHEST: Bilateral breath sounds. HEART: Regular rhythm. ABDOMEN: Soft, active bowel sounds. No masses, no rebound, no guarding. EXTREMITIES: The patient has bilateral femoral popliteal, dorsalis pedis and posterior tibial pulses by palpation. She has bilateral brachial, radial and ulnar pulses on palpation. No signs of acute vascular deficit. The right and left groin both have masses measuring about 6-7 cm in them, but these do not appear to be pulsatile as ultrasound would suggest, rather they seem to be fairly firm and rubbery. ASSESSMENT AND PLAN: This is either a partially occluded pseudoaneurysm with minimal flow or maybe packets of lymph nodes sitting on top of the vessel giving the same impression. Based on the above, I believe CTA with contrast is the best way to elucidate this considering the location. If this is something that does have a vascular supply and is questionable pseudoaneurysm, it can always be embolized. On the other hand, there is a small chance this would need surgery. At this point, this lady has enough problems as it is and piling up more surgeries probably not the best idea unless absolutely necessary. We Will do CTA of the pelvis to see which way this looks and then decide what to do. I thank you very much for referral. MD MARIA T Barrios/KAYLA , 02:22 PM , 03:01 PM
[2017-07-22] MEDS: diphenhydrAMINE HCL 25 MG CAP PO PRN (16:03)
[2017-07-22] MEDS ORDERED: IODIXANOL 320 MG/ML 10 ML VIAL (for Rad CT) IVCONTRAST ONE (19:14)
--- NOTE | 2017-07-22 19:47 | RADRPT ---
EXAM DATE/TIME: 07/22/2017 19:01 [facility] COMPARISON: US LEG BILATERAL VENOUS DOPPLER, July 22, 2017, 8:05. INDICATIONS : Groin nodes vs vascular anomalies. IV CONTRAST: 50 cc Visipaque (iodixanol) IV RADIATION DOSE: 6.79 CTDIvol (mGy) MEDICAL HISTORY : Hypertension. Carcinoma, breast. Diabetes mellitus type 2.Renal carcinoma, ureteral cancer, cerebrova scular disease SURGICAL HISTORY : ENCOUNTER: Initial ACUITY: 1 day PAIN SCALE: 0/10 LOCATION: pelvis TECHNIQUE: Volumetric scanning of the pelvis was performed. Using automated exposure control and adjustment of the mA and/or kV according to patient size, radiation dose was kept as low as reasonably achievable t o obtain optimal diagnostic quality images. DICOM format image data is available electronically for review and comparison. FINDINGS: The aortic bifurcation, common iliac, internal iliac, external iliac arteries are patent. Common femo ral arteries are patent. No pseudoaneurysm is seen. There is adenopathy seen in the inguinal regions bilaterally. There appears to be a confluent area of adenopathy in the right inguinal region measurin g 4.3 x 2.8 x 3.2 cm. Multiple lymph nodes are seen in the left inguinal region with the largest one measuring 3.9 x 2.7 x 2.1 cm. There is lesser degree of adenopathy seen in the pelvic sidewalls bilat erally. Adenopathy is seen in the retroperitoneum in the periaortic region around the distal aorta an d aortic bifurcation. There is a Germain catheter present in the urinary bladder. There is a mild amoun t of free fluid present. The pelvic structures are otherwise grossly intact. CONCLUSION: 1. The arterial system is intact. No pseudoaneurysm is seen. 2. Adenopathy seen throughout the pelvis and inguinal regions. Conditions resulting in neoplastic or reactive adenopathy should be considered. Ethan Cruz MD on July 22, 2017 at 19:40 Board Certified Radiologist. This report was verified electronically.
--- NOTE | 2017-07-22 23:56 | PD.ONC.PN ---
Subjective Subjective Remarks Resting in bed. Reports decreased appetite and nausea. Objective Data Date Time Temp Pulse Resp B/P (MAP) Pulse Ox O2 Delivery O2 Flow Rate FiO2 07/22/17 20:02 84 07/22/17 20:01 99.1 86 16 152/73 (99) 99 07/22/17 16:06 98.4 82 16 149/77 (101) 96 07/22/17 12:20 98.4 84 16 148/80 (102) 93 07/22/17 07:56 98.2 91 16 158/84 (108) 94 07/22/17 04:03 98.4 86 16 154/78 (103) 98 07/22/17 04:01 76 07/22/17 00:40 98.2 83 16 153/80 (104) 98 07/22/17 00:10 75 Result Diagram: 07/22/170 07/22/170 Laboratory Results Laboratory Tests Test 07/22/17 04:10 White Blood Count 4.8 TH/MM3 Red Blood Count 2.85 MIL/MM3 Hemoglobin 8.4 GM/DL Hematocrit 24.5 % Mean Corpuscular Volume 86.0 FL Mean Corpuscular Hemoglobin 29.3 PG Mean Corpuscular Hemoglobin Concent 34.1 % Red Cell Distribution Width 16.2 % Platelet Count 106 TH/MM3 Mean Platelet Volume 7.4 FL Neutrophils (%) (Auto) 64.5 % Lymphocytes (%) (Auto) 21.6 % Monocytes (%) (Auto) 8.5 % Eosinophils (%) (Auto) 5.1 % Basophils (%) (Auto) 0.3 % Neutrophils # (Auto) 3.1 TH/MM3 Lymphocytes # (Auto) 1.0 TH/MM3 Monocytes # (Auto) 0.4 TH/MM3 Eosinophils # (Auto) 0.2 TH/MM3 Basophils # (Auto) 0.0 TH/MM3 CBC Comment AUTO DIFF Differential Total Cells Counted 100 Neutrophils % (Manual) 59 % Band Neutrophils % 11 % Lymphocytes % 13 % Monocytes % 8 % Eosinophils % 4 % Neutrophils # (Manual) 3.6 TH/MM3 Metamyelocytes 3 % Myelocytes 1 % Differential Comment FINAL DIFF MANUAL Plasma Cells 1 % Platelet Estimate LOW Platelet Morphology Comment NORMAL Blood Urea Nitrogen 11 MG/DL Creatinine 0.69 MG/DL Random Glucose 91 MG/DL Calcium Level 7.7 MG/DL Sodium Level 144 MEQ/L Potassium Level 3.6 MEQ/L Chloride Level 110 MEQ/L Carbon Dioxide Level 28.1 MEQ/L Anion Gap 6 MEQ/L Estimat Glomerular Filtration Rate 84 ML/MIN Culture Results Microbiology Date/Time Source Procedure Growth Status 07/20/17 15:35 Stool Stool Stool Occult Blood (YANCY) - Final HEMOCCULT NEGATIVE Complete Imaging Studies Last 24 hours Impressions Pelvis CTA 07/22/17 0000 Signed Impressions: Service Date/Time: Saturday, July 22, 2017 19:01 - CONCLUSION: 1. The arterial system is intact. No pseudoaneurysm is seen. 2. Adenopathy seen throughout the pelvis and inguinal regions. Conditions resulting in neoplastic or reactive adenopathy should be considered. Ethan Cruz MD Lower Extremity Ultrasound 07/22/17 0000 Signed Impressions: Service Date/Time: Saturday, July 22, 2017 08:05 - CONCLUSION: 1. No sonographic evidence for lower extremity DVT. 2. There are bilateral apparent femoral artery pseudoaneurysms. This includes a 6.1 x 3.5 x 1.9 cm right common femoral artery pseudoaneurysm with 5 mm neck which is largely thrombosed, bilobed 5.3 x 3.0 x 3.3 cm left common from artery pseudoaneurysm with a 3 mm neck which is largely thrombosed and a pseudoaneurysm arising from the left superficial femoral artery that was not measured but is larger than 2 cm with mixed venous waveform raising possibility for AV fistula although a venous connection is not visualized. Lázaro Meehan MD Administered Medications Medications (Trade) Dose Ordered Sig/Prabha Route PRN Reason Start Time Stop Time Status Last Admin Dose Admin Sodium Chloride (NS Flush) 2 ml UNSCH PRN IV FLUSH FLUSH AFTER USING IV ACCESS 07/12/17 02:30 07/21/17 07:05 Sodium Chloride (NS Flush) 2 ml BID IV FLUSH 07/12/17 09:00 07/22/17 09:00 Acetaminophen (Tylenol) 650 mg Q6H PRN PO FEVER/PAIN SCALE 1 TO 2 07/12/17 02:30 07/16/17 17:49 Acetaminophen/ Hydrocodone Bitart ([place] 5-325 Mg) 1 tab Q4H PRN PO PAIN SCALE 3 TO 5 4/28/18 02:30 07/22/17 18:41 Senna/Docusate Sodium (Katheryn-Colace) 1 tab BID PO 07/12/17 09:00 07/22/17 19:59 Magnesium Hydroxide (Milk Of Yeni Nagy) 30 ml Q12H PRN PO Mild constipation 07/12/17 02:30 07/19/17 20:18 Fluticasone Propionate (Flonase Abhi Spr) 1 spray DAILY EACH NARE 07/13/17 09:00 07/22/17 09:00 Meclizine HCl (Antivert) 25 mg Q6H PRN PO VERTIGO 07/12/17 12:30 07/21/17 10:20 Multivitamins (Theragran) 1 tab DAILY PO 07/13/17 09:00 07/22/17 08:13 Heparin Sodium (Porcine) (Heparin Inj) 5,000 units Q8HR SQ 07/12/17 22:00 Future Hold 07/13/17 06:00 Petrolatum/Zinc Oxide (Sensi-Care Protective Barrier Oint) 1 applic DAILY TOPICAL 07/13/17 09:00 07/22/17 09:00 Hydrocortisone (Hydrocortisone 1% Cream) 1 applic BID TOPICAL 07/13/17 21:00 07/22/17 19:59 Diphenhydramine HCl (Benadryl) 25 mg Q6H PRN PO ITCHING 07/15/17 16:15 07/22/17 16:03 Acetaminophen (Tylenol) 650 mg Q4H PRN PO SEE LABEL COMMENTS 07/16/17 10:15 07/16/17 13:25 Diphenhydramine HCl (Benadryl) 25 mg Q4H PRN PO SEE LABEL COMMENTS 07/16/17 10:15 07/16/17 13:25 Folic Acid (Folate) 1 mg DAILY PO 07/17/17 09:00 07/22/17 08:13 Cyanocobalamin (Vitamin B12) 1,000 mcg DAILY PO 07/17/17 09:00 07/22/17 08:13 Ondansetron HCl (Zofran Inj) 4 mg Q6H PRN IVP NAUSEA OR VOMITING 07/20/17 09:00 07/22/17 18:41 Prochlorperazine Edisylate (Compazine Inj) 10 mg Q8H PRN IV PUSH nausea 07/20/17 09:30 07/21/17 18:19 Fentanyl (Duragesic 25 Mcg Patch.72 Hr) 1 patch Q3D T-DERMAL 07/20/17 10:00 07/20/17 11:08 Objective Remarks GENERAL: Well-nourished, well-developed patient. SKIN: Warm and dry. HEAD: Normocephalic. EYES: No scleral icterus. No injection or drainage. RESPIRATORY: No accessory muscle use. NEUROLOGICAL: No obvious focal deficit. Awake, alert, and oriented x3. PSYCHIATRIC: Appropriate mood and affect; insight and judgment normal. Assessment/Plan Problem List: (1) Febrile neutropenia ICD Codes: D70.9 - Neutropenia, unspecified; R50.81 - Fever presenting with conditions classified elsewhere Plan: -- Febrile neutropenia --Urine culture ++Pseudomonas --Blood cultures no growth --on vancomycin, Azactam, Levaquin Patient received Alimta on 07/07/17. 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 Cytopenia: most likely due to chemotherapy. vitamin b12, folate replete. No evidence of TMA, DIC, HIT. Platelet count slowly uptrending. 2. Febrile neutropenia: with urine culture positive of pseudomonas. Blood cultures with no growth. Resolved 3. 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 Previously progressed on cisplatin and gemcitabine and atezolizumab. 4. Pseudoaneurysm on ultrasound: no history of invasive procdure. Will consult vascular surgery team. Case discussed with Dr. Soto and Dr. Kirk De La Torre,[place] Barry MD July 22, 2017 23:56
[2017-07-23] VITALS (7 sets, daily range): BP systolic 123–143; BP diastolic 72–84; PULSE 84–116; RESP 16–18; TEMP 98.1–99; O2SAT 94–98
[2017-07-23] MEDS: diphenhydrAMINE HCL 25 MG CAP PO PRN (01:19)
--- NOTE | 2017-07-23 07:26 | HHI.PR ---
Subjective Remarks Feels better wants to go home No complaints CTA reviewed with the patient no pseudoaneurysm Objective Vitals Vital Signs Date Time Temp Pulse Resp B/P (MAP) Pulse Ox O2 Delivery O2 Flow Rate FiO2 07/23/17 04:54 99.0 86 16 141/84 (103) 95 07/23/17 04:11 84 07/23/17 01:05 98.8 85 16 137/78 (97) 98 07/23/17 00:07 91 07/22/17 20:02 84 07/22/17 20:01 99.1 86 16 152/73 (99) 99 07/22/17 16:06 98.4 82 16 149/77 (101) 96 07/22/17 12:20 98.4 84 16 148/80 (102) 93 07/22/17 07:56 98.2 91 16 158/84 (108) 94 I/O 07/22/17 07/22/17 07/22/17 07/23/17 07/23/17 07/23/17 07:00 15:00 23:00 07:00 15:00 23:00 Intake Total 1000 ml 240 ml Output Total 3100 ml 1800 ml 450 ml 2400 ml Balance -2100 ml -1800 ml -210 ml -2400 ml Intake Oral 240 ml IV Total 1000 ml Output Urine Total 3100 ml 1800 ml 450 ml 2400 ml Result Diagram: 07/22/17 0410 07/22/17 0410 Imaging Last Impressions Pelvis CTA 07/22/17 0000 Signed Impressions: Service Date/Time: Saturday, July 22, 2017 19:01 - CONCLUSION: 1. The arterial system is intact. No pseudoaneurysm is seen. 2. Adenopathy seen throughout the pelvis and inguinal regions. Conditions resulting in neoplastic or reactive adenopathy should be considered. Ethan Cruz MD Lower Extremity Ultrasound 07/22/17 0000 Signed Impressions: Service Date/Time: Saturday, July 22, 2017 08:05 - CONCLUSION: 1. No sonographic evidence for lower extremity DVT. 2. There are bilateral apparent femoral artery pseudoaneurysms. This includes a 6.1 x 3.5 x 1.9 cm right common femoral artery pseudoaneurysm with 5 mm neck which is largely thrombosed, bilobed 5.3 x 3.0 x 3.3 cm left common from artery pseudoaneurysm with a 3 mm neck which is largely thrombosed and a pseudoaneurysm arising from the left superficial femoral artery that was not measured but is larger than 2 cm with mixed venous waveform raising possibility for AV fistula although a venous connection is not visualized. Lázaro Meehan MD Upper Extremity Ultrasound 07/19/17 0000 Signed Impressions: Service Date/Time: Wednesday, July 19, 2017 15:16 - CONCLUSION: No evidence of right upper extremity DVT. Navarro Iqbal MD Chest X-Ray 07/12/17 0000 Signed Impressions: Service Date/Time: Wednesday, July 12, 2017 01:19 - CONCLUSION: The lungs are clear. Eleazar Mora MD Objective Remarks GENERAL: Awake and alert. Laying in bed. Family at bedside SKIN: + Erythematous macular rash over right anterior chest wall/shoulder, worsening, now on the neck, scalp and forehead. CARDIOVASCULAR: Regular rate and rhythm. No obvious murmurs to auscultation. RESPIRATORY: No wheezing. Clear to auscultation. Breath sounds equal bilaterally. GASTROINTESTINAL: Abdomen soft, non-tender, nondistended. BS normal. MUSCULOSKELETAL: right arm edema. : bilateral inguinal masses no pain. Procedures none A/P Problem List: (1) Fever ICD Code: R50.9 - Fever, unspecified (2) UTI (urinary tract infection) ICD Code: N39.0 - Urinary tract infection, site not specified (3) Breast CA ICD Code: C50.919 - Malignant neoplasm of unspecified site of unspecified female breast Assessment and Plan 71-year-old female with a PMH of HTN, Hyperlipidemia, Depression, IBS and Breast CA on Chemo who presented to the ER with complaints of generalized malaise and fever. Bilateral inguinal masses. ? Pseudoaneurysm. Discussed with hem/onc. US shows poss pseudoaneurysms patient with low PLT and low HGB and at risk of bleeding. Also patient doesn't have any history of intervention. Consult vascular surgeon for evaluation, seen by Dr Osman , appreciate recs. Pelvic CTA with contrast and see if these are indeed pseudoaneurysms Degree of flow will determine whether this is something we can embolize with some thrombin or this has to be surgically approached, however patient with low PLT and low HGB and at very high risk. Monitor closely Work up for HIT by hem/onc . Noted with edema right arm, US doppler no DVT . Elevate arm. Neutropenic fever +immunocompromised on chemotherapy White count improved CXR without acute findings. Blood cultures with no growth x 4 days. Flu antigen neg.Legionella and pneumococcal antigen negative. Urine culture growing Pseudomonas Oncology following. Appreciate assistance. s/p vancomycin, aztreonam, and continue Levaquin per IDs recommendations. Monitor rash as it could be reaction to antibiotic Repeat blood cultures negative to date. Continue to monitor for fevers. Continue IV hydration, encourage PO Patients platelets are low, HGB low concern for HIT. Discussed with hem/onc. Work up negative for HIT. No iron deficiency, normal B12 and folate. Stool normal color. Likely low PLT and HGB is chemo related Anemia, secondary to chemotherapy Thrombocytopenia Patient has been transfused. Monitor H&H No signs of active bleeding -Hold Heparin -Monitor for any evidence of bleeding Rash noted over anterior chest/neck and face/scalp -ID following. Likely allergic reaction . the rash is worsening. Will give one dose of Solu-Medrol on the 125 mg 1 time. Continue prednisone 50 mg daily for 4-5 days. Rash improved significantly Pseudomonal UTI: UA with mod leukocytes, 7 WBCs, occ bacteria. Patient has chronic indwelling herrera. Denies any c/o abdominal pain. Urine culture positive for Pseudomonas pansensitive. Continue antibiotics Right ureter CA, s/p open right nephroureterectomy with excision of bladder cuff : chronic indwelling herrera. Follows with Dr. Lopez. Has appt Friday to have herrera changed. Difficult Herrera exchange per patient report, only has one nurse at Dr. Lopez's office who is able to do Breast CA s/p mastectomy: follows at [place], currently on chemotherapy, outpatient follow up at [place] as scheduled to resume treatment. -Continue pain management -Continue with PT/OT -Consult palliative care-I did speak with palliative care and patient would like to be a DNR CKD Creatinine appears to near baseline. Monitor. Avoid nephrotoxic agent Hx of DM: not on any diabetic meds HgbA1c 5.3 Constipation, Bowel regimen in place DVT Prophylaxis: SCD Discussed with the patient, family at bedside, nurse, hematology market research specialist Improving. DC home when cleared by hem/onc. Work up for HIT by hem/onc . Edema right arm, US doppler no DVT Plan to DC home when cleared by hemonc and vasc surgeon. Patient with possible pseudoaneurysm, Consulted vasc surg recommended CtA reviewed and no pseudoaneurysm PT evaluated patient no need of PT at DC. Patient improved. DC home to follow up as OP with PCP and consultants To follow up as OP with PCP and consultants. Patient says she wants to pursue aggressive treatment and will follow up with her oncology Dr in [place], pt. has already an appointment. Lillie Bradley MD July 23, 2017 07:26
[2017-07-23] MEDS: PETROLATUM 49%/ZINC OXIDE 15% 4 OUNCE TUBE TOPICAL SCH (09:00)
[2017-07-23] MEDS: CYANOCOBALAMIN 1,000 MCG TAB PO SCH (09:00)
[2017-07-23] MEDS: MULTIVITAMIN TAB PO SCH (09:00)
[2017-07-23] MEDS: fentaNYL 25 MCG/HR PATCH T-DERMAL SCH (09:00)
[2017-07-23] MEDS: DOCUSATE SODIUM 50 MG/SENNA 8.6 MG TAB PO SCH (09:00)
[2017-07-23] MEDS: HYDROCORTISONE 1% CREAM 30 GM TOPICAL SCH (09:00)
[2017-07-23] MEDS: FOLIC ACID 1 MG TAB PO SCH (09:00)
[2017-07-23] MEDS: FLUTICASONE PROPIONATE 50 MCG/ACT 16 GM NASAL SPRAY EACH NARE SCH (09:00)
[2017-07-23] MEDS: SODIUM CHLORIDE 0.9% FLUSH 10 ML FLUSH IV FLUSH SCH (09:04)
[2017-07-23] MEDS ORDERED: REMOVE OLD PATCH T-DERMAL SCH (10:00)
[2017-07-23] MEDS ORDERED: hydrOXYzine PAMOATE 25 MG CAP PO PRN (11:45)
--- NOTE | 2017-07-23 11:51 | HHI.HCPN ---
Reason for visit a. To assist with evaluation and management of symptoms including:Pain, nausea, generalized weakness, debility b. To assist medical decision maker(s) with: better understanding of current medical conditions; weighing benefits/burdens of medical treatment options; making medical treatment decisions. Subjective/Interval History Follow up medically necessary for symptom management and further clarification of goals of care. Patient seen and examined in the presence of her grandson. Patient states that she is very sleepy today. Denies pain, nausea and vomiting. Patient on a Fentanyl 25mcg q 3 hrs and is now sparingly needing Hydrocodone 5/ 325. Patient says, " she wants to go home". Swelling noted to bilateral groin areas. Lower extremity ultrasound 07/22/17 revealed bilateral femoral artery pseudoaneurysms connected to common femoral arteries. Vascular surgeon Dr. Osman consulted on 07/22/17 for evaluation of possible bilateral groin pseudoaneurysms, recommended CTA to further evaluate pseudoaneurysms. Pelvic CTA revealed intact arterial system with no pseudoaneurysm. Adenopathy seen throughout the pelvis and inguinal regions. Laboratory workup today revealing WBC 4.8, hemoglobin 8.4-stable, hematocrit 24.5, platelet count 106 trending up, potassium 3.6, BUN/creatinine 11/0.69, calcium 7.7. Patient has decided to follow up with local oncologist Dr. De La Torre and also have radiation therapy locally instead of going to [facility]. Goals remain aggressive short of resuscitation and intubation. Case discussed with bedside RN. . Family/friend interactions Minor Grandson at bedside. . Advance Directives Living Will: Completed, but not made available Advance Directive Specifics Health Care Surrogate(s): [facility]- Spouse- Damian Castro- [phone] (home)/[phone](cell) Alternate NQH-ylhuizhl-Fevil-Ann, Ydtsdqf-[phone] . Objective Vital Signs Date Time Temp Pulse Resp B/P (MAP) Pulse Ox O2 Delivery O2 Flow Rate FiO2 07/23/17 04:54 99.0 86 16 141/84 (103) 95 07/23/17 04:11 84 07/23/17 01:05 98.8 85 16 137/78 (97) 98 07/23/17 00:07 91 07/22/17 20:02 84 07/22/17 20:01 99.1 86 16 152/73 (99) 99 07/22/17 16:06 98.4 82 16 149/77 (101) 96 07/22/17 12:20 98.4 84 16 148/80 (102) 93 Intake & Output 07/23/17 07/23/17 07:00 19:00 Output Total 2850 ml Balance -2850 ml Output Urine Total 2850 ml Physical Exam CONSTITUTIONAL/GENERAL: This is an adequately nourished, in no apparent distress. TUBES/LINES/DRAINS: Adagst-x-Cbyu right chest wall, Germain catheter, SCDs SKIN: Rash to chest wall, upper back and face improved. No wounds seen anteriorly. EYES: PERRLA. Extraocular motions intact. No scleral icterus. No injection or drainage. Fundi not examined. ENT: Hearing grossly normal. Nose without bleeding or purulent drainage. Moist oral mucosa CARDIOVASCULAR: S1, S2 normal; no murmurs, gallops, or rubs. No JVD. Peripheral pulses symmetric. RESPIRATORY/CHEST: Symmetric, unlabored respirations. Diminished in the bases. No wheezes, rales, or rhonchi. GENITOURINARY: Without palpable bladder distension. Germain catheter in place with straw colored urine. MUSCULOSKELETAL: Extremities without clubbing, cyanosis, or edema. No calf tenderness. No mottling or clubbing. NEUROLOGICAL: Awake and alert. Follows commands. Cognitively sharp. Moves all extremities. . Diagnostic Tests Laboratory Laboratory Tests Test 07/20/17 12:00 07/21/17 03:50 07/22/17 04:10 Blood Urea Nitrogen 13 MG/DL (7-18) 11 MG/DL (7-18) Creatinine 0.73 MG/DL (0.50-1.00) 0.69 MG/DL (0.50-1.00) Random Glucose 133 MG/DL (74-106) 91 MG/DL (74-106) Calcium Level 7.5 MG/DL (8.5-10.1) 7.7 MG/DL (8.5-10.1) Sodium Level 142 MEQ/L (136-145) 144 MEQ/L (136-145) Potassium Level 3.2 MEQ/L (3.5-5.1) 3.6 MEQ/L (3.5-5.1) Chloride Level 109 MEQ/L (98-107) 110 MEQ/L (98-107) Carbon Dioxide Level 25.8 MEQ/L (21.0-32.0) 28.1 MEQ/L (21.0-32.0) Anion Gap 7 MEQ/L (5-15) 6 MEQ/L (5-15) Estimat Glomerular Filtration Rate 79 ML/MIN (>89) 84 ML/MIN (>89) Iron Level 53 MCG/DL (50-170) Total Iron Binding Capacity 181 MCG/DL (250-450) Percent Iron Saturation 29.3 % (20-50) Ferritin 1545 NG/ML (8-252) White Blood Count 5.5 TH/MM3 (4.0-11.0) 4.8 TH/MM3 (4.0-11.0) Red Blood Count 2.64 MIL/MM3 (4.00-5.30) 2.85 MIL/MM3 (4.00-5.30) Hemoglobin 7.7 GM/DL (11.6-15.3) 8.4 GM/DL (11.6-15.3) Hematocrit 22.4 % (35.0-46.0) 24.5 % (35.0-46.0) Mean Corpuscular Volume 85.0 FL (80.0-100.0) 86.0 FL (80.0-100.0) Mean Corpuscular Hemoglobin 29.1 PG (27.0-34.0) 29.3 PG (27.0-34.0) Mean Corpuscular Hemoglobin Concent 34.2 % (32.0-36.0) 34.1 % (32.0-36.0) Red Cell Distribution Width 16.2 % (11.6-17.2) 16.2 % (11.6-17.2) Platelet Count 73 TH/MM3 (150-450) 106 TH/MM3 (150-450) Mean Platelet Volume 8.1 FL (7.0-11.0) 7.4 FL (7.0-11.0) Neutrophils (%) (Auto) 73.1 % (16.0-70.0) 64.5 % (16.0-70.0) Lymphocytes (%) (Auto) 17.4 % (9.0-44.0) 21.6 % (9.0-44.0) Monocytes (%) (Auto) 9.2 % (0.0-8.0) 8.5 % (0.0-8.0) Eosinophils (%) (Auto) 0.2 % (0.0-4.0) 5.1 % (0.0-4.0) Basophils (%) (Auto) 0.1 % (0.0-2.0) 0.3 % (0.0-2.0) Neutrophils # (Auto) 4.0 TH/MM3 (1.8-7.7) 3.1 TH/MM3 (1.8-7.7) Lymphocytes # (Auto) 1.0 TH/MM3 (1.0-4.8) 1.0 TH/MM3 (1.0-4.8) Monocytes # (Auto) 0.5 TH/MM3 (0-0.9) 0.4 TH/MM3 (0-0.9) Eosinophils # (Auto) 0.0 TH/MM3 (0-0.4) 0.2 TH/MM3 (0-0.4) Basophils # (Auto) 0.0 TH/MM3 (0-0.2) 0.0 TH/MM3 (0-0.2) CBC Comment AUTO DIFF AUTO DIFF Differential Total Cells Counted 100 100 Neutrophils % (Manual) 65 % (16-70) 59 % (16-70) Band Neutrophils % 16 % (0-6) 11 % (0-6) Lymphocytes % 10 % (9-44) 13 % (9-44) Monocytes % 6 % (0-8) 8 % (0-8) Eosinophils % 1 % (0-4) 4 % (0-4) Neutrophils # (Manual) 4.5 TH/MM3 (1.8-7.7) 3.6 TH/MM3 (1.8-7.7) Myelocytes 1 % (0-0) 1 % (0-0) Nucleated Red Blood Cells 1 /100 WBC (0-0) Differential Comment FINAL DIFF MANUAL FINAL DIFF MANUAL Plasma Cells 1 % (0-0) 1 % (0-0) Toxic Granulation 2+ (NORMAL) Platelet Estimate LOW (NORMAL) LOW (NORMAL) Platelet Morphology Comment NORMAL (NORMAL) NORMAL (NORMAL) Metamyelocytes 3 % (0-1) Result Diagram: 07/22/17 0410 07/22/17 0410 Microbiology Microbiology Date/Time Source Procedure Growth Status 07/20/17 15:35 Stool Stool Stool Occult Blood (YANCY) - Final HEMOCCULT NEGATIVE Complete Imaging Last 48 hours Impressions Pelvis CTA 07/22/17 0000 Signed Impressions: Service Date/Time: Saturday, July 22, 2017 19:01 - CONCLUSION: 1. The arterial system is intact. No pseudoaneurysm is seen. 2. Adenopathy seen throughout the pelvis and inguinal regions. Conditions resulting in neoplastic or reactive adenopathy should be considered. Ethna Cruz MD Lower Extremity Ultrasound 07/22/17 0000 Signed Impressions: Service Date/Time: Saturday, July 22, 2017 08:05 - CONCLUSION: 1. No sonographic evidence for lower extremity DVT. 2. There are bilateral apparent femoral artery pseudoaneurysms. This includes a 6.1 x 3.5 x 1.9 cm right common femoral artery pseudoaneurysm with 5 mm neck which is largely thrombosed, bilobed 5.3 x 3.0 x 3.3 cm left common from artery pseudoaneurysm with a 3 mm neck which is largely thrombosed and a pseudoaneurysm arising from the left superficial femoral artery that was not measured but is larger than 2 cm with mixed venous waveform raising possibility for AV fistula although a venous connection is not visualized. Lázaro Meehan MD Assessment and Plan Disease Oriented Problem List: (1) Transitional cell carcinoma of ureter (2) Breast CA (3) Febrile neutropenia (4) UTI (urinary tract infection) (5) Depression (6) Irritable bowel syndrome Symptom Scale: (1) Pain Comment: Complaining of pain to right knee. NM bone scan revealed multifocal high of increased radiotracer activity suggestive of metastatic disease involving right distal humerus, right clavicle, right scapula, bilateral distal femur, and right posterior ribs. Patient currently undergoing chemotherapy. . (2) Generalized weakness 0-10 Scale: Unable to quantify Comment: Patient is currently undergoing chemotherapy and has low hemoglobin . (3) Nausea 0-10 Scale: Unable to quantify Comment: Patient currently on chemotherapy, and is been complaining of nausea. . (4) Debility 0-10 Scale: Unable to quantify Comment: Progressive . Pertinent Non-Medical Issues Psychosocial:Patient was born and raised in [place], [place]. She moved to [place] in May of 1984. Patient is to a of 46 years. Patient has worked for [employer] in the [place] Department. 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 She has 1 grandson. Patient enjoys boating and camping with her family. Spiritual: Patient is Manda[place]-she has a local friend who visits and is a Saw Repairer. Legal: Patient is completed a living will- will bring copy from home Ethical issues impacting care: None identified at this time . Important Contacts Spouse-Damian Castro -[phone] (home)/[phone](other) Daughter-Matthew Clarke-[phone] . 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 Patient presented to the ER by ambulance on 07/11/17 complaining of generalized malaise and fever with a temperature of 101F. Patient is currently on chemotherapy for breast cancer and she follows at [facility]. Clinical course complicated with possible metastatic disease to bone, urinary tract infection, and febrile neutropenia. Given ongoing comorbidities patient remains at high risk for further complications, deterioration and decline. . Code Status: No Code Plan PLAN: Legal decision maker: Patient is able to participate in medical decision making. In the event that patient is incapacitated, she has designated her Damian Castro as her healthcare surrogate and her daughter Tricia Castro as her alternate healthcare surrogate. Goals: Aggressive short of no code. CODE STATUS: No code DNR/DNI Patient has decided to follow up with local oncologist Dr. De La Torre and also have radiation therapy locally instead of going to [facility]. Goals remain aggressive short of resuscitation and intubation. SYMPTOMS: * Pain: Patient complaining of pain to right knee. NM bone scan revealed multifocal high of increased radiotracer activity suggestive of metastatic disease involving right distal humerus, right clavicle, right scapula, bilateral distal femur, and right posterior ribs. Patient currently undergoing chemotherapy. Patient his hydrocodone/acetaminophen 5/325 q 4 hrs prn. Patient was started on a Fentanyl 25mcg patch q 3 days. Sparingly needing Hydrocodone 5/325. No recommendations. 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 Complaining of nausea. Nausea managed with ondansetron 4 mg every 6 hrs prn. Currently denies nausea. Compazine 10mg IVP also started for N/V. Patient has not required prn. Appetite improved and nausea controlled. No recommendations. * Generalized weakness: Anemia secondary to chemotherapy. 1 unit pRBC transfused 5/2 for Hgb 6.9. Hgb now stable. Continue to monitor hemoglobin. * Debility: Progressive. 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 Patient currently using a rolling walker. PT saw patient on 07/18/17- recommended discharging patient home with no PT. Increase out of bed as tolerated. Palliative care will continue to follow the patient during hospital course as condition evolves, to assist patient/decision-maker with understanding of their medical conditions, weighing benefits/burdens of treatment options, for clarification of goals of treatment. Additionally will assist with any symptoms of palliative concern Attestation To help prompt me to consider important information that might be impacting today's encounter and assessment, information from prior notes written by myself or my colleagues may have been "brought forward" into today's note. My signature on this note, however, is an attestation that I personally performed the exam, history, and/or decision-making noted today, and, unless otherwise indicated, the interactions with patient, family, and staff as well as the review of records all occurred today. I also attest that the listed assessment and stated plan reflect my best clinical judgment today based on the combination of historical information, prior notes, and today's exam/ interactions. When time spent is documented, it refers only to time spent today by the signer, or if indicated, combined time spent today by collaborating physician/nurse practitioner. Feliberto Freeman July 23, 2017 11:51
--- NOTE | 2017-07-23 14:30 | PD.CAR.PN ---
CVT Progress Note Subjective/Hospital Course: Patient evaluated full consult dictated This patient does have indeed bilateral inguinal masses which could be pseudoaneurysms however I do not feel any pulsation in these so theoretically it could be a lymph node packet with a wide stalk. Patient does not remember having had any vascular procedures on either side other than biopsies but then again Óscar-Cut biopsy can sometimes injure the vessel and lead to pseudoaneurysm. Either way will do pelvic CTA with contrast and see if these are indeed pseudoaneurysms, but I don't think so, based on my clinical examination. On the other hand, if there is a pseudoaneurysm present, degree of flow will determine whether this is something we can embolize with some thrombin or this has to be surgically approached. This unfortunate lady has enough medical problems as it is and piling up more surgeries is probably not the best idea unless absolutely necessary Will evaluate CTA and advise Please do not discharge patient today 06/23/2017 I reviewed the CTA of the pelvis. As above noted my suspicion was correct and the masses in the groins are not pseudoaneurysms but lymph nodes, so no surgical intervention is necessary Will sign off Thanks Margarito Objective: Vital Signs Date Time Temp Pulse Resp B/P (MAP) Pulse Ox O2 Delivery O2 Flow Rate FiO2 07/23/17 04:54 99.0 86 16 141/84 (103) 95 07/23/17 04:11 84 07/23/17 01:05 98.8 85 16 137/78 (97) 98 07/23/17 00:07 91 07/22/17 20:02 84 07/22/17 20:01 99.1 86 16 152/73 (99) 99 07/22/17 16:06 98.4 82 16 149/77 (101) 96 Result Diagram: 07/22/17 0410 07/22/17 0410 Kylah Osman MD July 23, 2017 14:30
[2017-07-23] MEDS: ACETAMINOPHEN/HYDROcodone 325 MG/5 MG TAB PO PRN (17:30)
[2017-07-23] MEDS ORDERED: FENT25T T-DERMAL (17:46)
== END 2017-07-23 18:15 | disposition home or self-care (01) | DRG 809 ==
LOC: NEPE 22:16 → NEDA 07-12 02:34 → NEPGCP 07-12 03:13 → HCIN 07-13 12:39 → OBSVTOIN 07-14 09:33
PROVIDERS: ADMIT Hospitalist; ATTEND Hospitalist
PROC: 30233N1 Transfusion of Nonautologous Red Blood Cells into Peripheral Vein, Percutaneous Approach (ICD-10-PCS; principal; 2017-07-16)
DX: D70.1 Agranulocytosis secondary to cancer chemotherapy (principal); N39.0 Urinary tract infection, site not specified; C79.9 Secondary malignant neoplasm of unspecified site; C79.51 Secondary malignant neoplasm of bone; E11.22 Type 2 diabetes mellitus with diabetic chronic kidney disease; C66.1 Malignant neoplasm of right ureter; D69.59 Other secondary thrombocytopenia; B96.5 Pseudomonas (aeruginosa) (mallei) (pseudomallei) as the cause of diseases classified elsewhere; R50.81 Fever presenting with conditions classified elsewhere; N18.9 Chronic kidney disease, unspecified; I12.9 Hypertensive chronic kidney disease with stage 1 through stage 4 chronic kidney disease, or unspecified chronic kidney disease; G47.30 Sleep apnea, unspecified; E78.5 Hyperlipidemia, unspecified; K58.9 Irritable bowel syndrome, unspecified; L27.0 Generalized skin eruption due to drugs and medicaments taken internally; D64.81 Anemia due to antineoplastic chemotherapy; F32.9 Major depressive disorder, single episode, unspecified; T45.1X5A Adverse effect of antineoplastic and immunosuppressive drugs, initial encounter; Z66 Do not resuscitate; Z80.9 Family history of malignant neoplasm, unspecified; Z85.3 Personal history of malignant neoplasm of breast; Z86.73 Personal history of transient ischemic attack (TIA), and cerebral infarction without residual deficits; Z88.0 Allergy status to penicillin; Z90.5 Acquired absence of kidney; Z90.11 Acquired absence of right breast and nipple
CPT/HCPCS: 36430; 71046; 72191; 80048; 80053; 80202; 81001; 82272; 82550; 82607; 82728; 82746; 82948; 83010; 83036; 83540; 83550; 83605; 83615; 83690; 84443; 84484; 85007; 85014; 85018; 85025; 85027; 85384; 85610; 85730; 86022; 86850; 86900; 86901; 86920; 87040; 87077; 87086; 87186; 87449; 87804; 93005; 93970; 93971; G8987-GO; G8987-GP; G8988-GO; G8988-GP; J0692; J0780; J1642; J1644; J2270; J2405; J2930; J3370; J7030; J7040; J7050; J7512; P9016; Q9967

== ENCOUNTER 2017-08-01 16:32 | Emergency (ER) | END 2017-08-01 21:22 | disposition home or self-care (01) | DX: T83.511A Infection and inflammatory reaction due to indwelling urethral catheter, initial encounter (principal) | CPT/HCPCS: 80053; 81001; 83690; 85025; 87086; 96374; 99284; J1642; J2765; J7030 ==